=== PATIENT | female | born 1970 | race Caucasian/White ===

== ENCOUNTER 2017-09-09 11:11 | Inpatient (IN) | payer SELFPAY, OTHER ==
[~2017-09-09 11:11] MED LIST: ISOVUE-370 76%-LOCM 1 ML ONE; Iopamidol 370 76% 50 ML VIAL FS ONE
--- NOTE | 2017-09-09 11:36 | RAD ---
PORTABLE AP CHEST X-RAY: 09/09/2017 HISTORY: Dyspnea. COMPARISON: 11/17/2016 FINDINGS: There has been interval development of a small right pleural effusion. The left lung is clear. The cardiac silhouette is magnified by projection. The pulmonary vasculature is within normal limits. D egenerative changes are seen in the spine. IMPRESSION: Right pleural effusion. POS: [facility]
[2017-09-09 11:49] LABS: #Basophils 0.1 thou/uL (0.0-0.2); #Eosinphils 0.2 thou/uL (0.0-0.7); #Lymphocytes 1.1 thou/uL (1.20-3.40); #Monocytes 0.3 thou/uL (0.11-0.59); #Neutrophils 4.9 thou/uL (1.40-6.50); %Basophils 0.9 % (0.0-1.0); %Eosinophils 3.4 % (0.0-10.0); %Lymphocytes 16.6 % (21.0-51.0); %Monocytes 4.2 % (0.0-10.0); %Neutrophils 74.9 % (42.0-75.0); Hemoglobin 10.9 g/dL (12.0-16.0); Mean Corpuscular Hemoglobin 29.9 pg (27.0-31.0); Mean Platelet Volume 8.8 fL (7.4-10.4); Platelet Count 193 thou/uL (130-400); RBC Distribution Width 13.1 % (11.5-14.5); Red Blood Cell (RBC) Count 3.65 mill/uL (4.20-5.40); White Blood Cell (WBC) Count 6.6 thou/uL (4.8-10.8)
[2017-09-09 12:11] LABS: ALT (SGPT) 11 U/L (8-55); AST (SGOT) 19 U/L (5-34); Albumin 2.6 g/dL (3.5-5.0); Alkaline Phosphatase 79 U/L (40-150); Anion Gap 10 mmol/L (10-20); BUN (Urea Nitrogen) 11 mg/dL (7.0-18.7); Bilirubin, Total 0.4 mg/dL (0.2-1.2); CK (CPK) 193 U/L (29-168); Calc. Creatinine Clearance 0 mL/min (70-130); Calcium 8.6 mg/dL (7.8-10.44); Carbon Dioxide 26 mmol/L (22-29); Chloride 108 mmol/L (98-107); Estimated GFR-MDRD 56; Globulin 3.4 g/dL (2.4-3.5); Glucose 192 mg/dL (70-105); Sodium 141 mmol/L (136-145)
[2017-09-09 12:14] LABS: CKMB 4.3 ng/mL (0-6.6); Troponin I 0.045 ng/mL (< 0.028)
[2017-09-09 12:17] LABS: Potassium 2.7 mmol/L (3.5-5.1)
[2017-09-09] MEDS ORDERED: Nitroglycerin 2% Ointment 1 INCH/1 GM Packet ONE (12:20)
[2017-09-09] MEDS ORDERED: Furosemide 40 MG/4 ML VIAL ONE (13:08)
[2017-09-09] MEDS ORDERED: Potassium Chloride 20 MEQ TAB ONE (13:28)
[2017-09-09] MEDS ORDERED: Senokot 8.6 MG TAB PO PRN (14:07)
[2017-09-09] MEDS ORDERED: Guaifenesin DM 100-10/5 ML UDCUP PO PRN (14:07)
[2017-09-09] MEDS ORDERED: HYDROcodone/Acetaminophen 5/325 mg Tablet PO PRN (14:07)
[2017-09-09] MEDS ORDERED: Acetaminophen 325 MG TAB PO PRN (14:07)
[2017-09-09 14:15] LABS: Acetaminophen Less than 6.0 mcg/mL (10.0-30.0); Alcohol Less than 10 mg/dL (Less than 10); Salicylate Less than 8.0 mg/dL (15.0-30.0)
[2017-09-09] MEDS ORDERED: Dextrose 50% Abboject 50 ML SYRINGE SLOW IVP PRN (14:17)
[2017-09-09] MEDS ORDERED: Dextrose 5% in Water 1,000 ML IV PRN (14:17)
--- NOTE | 2017-09-09 14:34 | HP ---
REASON FOR ADMISSION: Likely progressive metastatic melanoma, new onset congestive heart failure. HISTORY OF PRESENTING ILLNESS: The patient gives history of swelling of her upper body from Saturday. She has had lower body swelling and edema from March. The lower body swelling started after a m ole was removed from her left medial thigh which came back positive for melanoma. She also had a lef t inguinal lymph node which was not touched upon or operated then. The left inguinal lymph node is a lmost increased in size x3 now. She has not followed up with Oncology or Dr. Adams since then. The patient has been working on getting insurance to follow up with him. The upper body swelling which started from Saturday has been progressive and she started having some chest pressure and was having sh ortness of breath. She could not lay down flat at home. All of this prompted her [facility] come [facility] for [facility] and complex care room here. PAST MEDICAL AND SURGICAL HISTORY: History of hypertension diagnosed in November of last year, but has no t been on any medications, likely malignant melanoma from November onwards and likely has progressed as a prominent left inguinal lymph node, prior history of Staph infection in left arm and her back with pr ior incision and drainage done. No prior cardiac workup. CURRENT MEDICATIONS: None. ALLERGIES: No known drug allergies. PERSONAL HISTORY: Does not abuse alcohol or drugs. She lives with her . No history of smoki ng. 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 FAMILY HISTORY: Father of lung cancer at the age of 50 and he was a smoker. He also had diabet es. Mother of stroke and she also had heart failure and at the age of 63 years. REVIEW OF SYSTEMS: The following complete review of systems was negative, unless otherwise mentioned in the HPI or below: Constitutional: Weight loss or gain, ability to conduct usual activities. Skin: Rash, itching. Eyes: Double vision, pain. ENT/Mouth: Nose bleeding, neck stiffness, pain, tenderness. Cardiovascular: Palpitations, dyspnea on exertion, orthopnea. Respiratory: Shortness of breath, wheezing, cough, hemoptysis, fever or night sweats. Gastrointestinal: Poor appetite, abdominal pain, heartburn, nausea, vomiting, constipation, or diarr hea. Genitourinary: Urgency, frequency, dysuria, nocturia. Musculoskeletal: Pain, swelling. Neurologic/Psychiatric: Anxiety, depression. Allergy/Immunologic: Skin rash, bleeding tendency. PHYSICAL EXAMINATION: GENERAL: The patient is a 47-year-old female who is currently in mild distress from orthopnea. VITAL SIGNS: Blood pressure on arrival was 210/118, currently 180/96, pulse 100 per minute, respirat ory rate 18 per minute, temperature 98.7 degrees Fahrenheit, saturating 95% on room air. NECK: Supple. There is mild elevation in JVD. EYES: Extraocular muscles intact. Pupils reacting to light. ORAL CAVITY: Mucous membranes are moist. No exudates or congestion. CARDIOVASCULAR SYSTEM: S1, S2 heard, S3 plus. RESPIRATORY SYSTEM: Air entry 1+ bilateral. Scattered rales plus in the infrascapular area. ABDOMEN: Soft. The patient appears to have abdominal wall edema, more so in the posterior aspect. No rigidity or guarding. There is massive left inguinal lymph node which measures roughly around 5 x 5 cm and it is hard for palpation. EXTREMITIES: There is 2+ peripheral edema, mostly nonpitting. No calf tenderness. VASCULAR SYSTEM: Peripheral pulses 1+ bilateral. No ischemic ulcerations or gangrene. CENTRAL NERVOUS SYSTEM: No gross focal deficits seen. Patient is alert, awake, and oriented well. PSYCHIATRIC SYSTEM: The patient's mood is euthymic. No hallucinations or delusions. IMAGING DATA AND LABORATORY DATA: EKG done shows normal sinus rhythm at 100 beats per minute. There are also signs of LVH. White count of 6.6, hemoglobin and hematocrit 11 and 32, platelet count 193, MCV is 88 with 74% neutrophils. Potassium is 2.7, serum bicarbonate 26, BUN 11, creatinine 1.0, glu cose 192. Liver enzymes are within normal limits. CK level is 193, troponin I 0.04. BNP is 1666, a lbumin is 2.6. Chest x-ray done shows mild cardiomegaly with mild right pleural effusion. CLINICAL IMPRESSION AND PLAN: The patient will be admitted to telemetry for new onset of congestive heart failure. Also, please note patient likely has progression of her malignant melanoma. She has a very hard left inguinal lymph node. We will obtain further imaging studies to see if she has sprea d anywhere else. Also, her albumin is very low. Patient likely has hypertension and has not been ta britt any medications for the same at least for last one year or so now. We will obtain echo with 2D Doppler for LV function with Lasix 40 mg IV q.[address] of the chest, abdomen, and pelvis to see for progression of her malignant melanoma. She will be on a small dose of Cozaar, Coreg and aspirin . We will consult Dr. Feng for Cardiology and Dr. Kirkpatrick who is landscape contractor for Oncology. It is uncle ar if patient ever followed up with Oncology after her diagnosis of malignant melanoma. She had biop sies done in November of last year. Her specimen was sent to [place] and was confirmed as poorly differentia cheo malignant melanoma. Her prognosis appears to be guarded at present until we get all the workup d one.
[2017-09-09 14:38] LABS: Hemoglobin A1c 7.3 % (4.0-6.0)
[2017-09-09 15:01] LABS: Anion Gap 10 mmol/L (10-20); BUN (Urea Nitrogen) 12 mg/dL (7.0-18.7); Calc. Creatinine Clearance 0 mL/min (70-130); Calcium 8.4 mg/dL (7.8-10.44); Carbon Dioxide 26 mmol/L (22-29); Chloride 109 mmol/L (98-107); Estimated GFR-MDRD 60; Glucose 172 mg/dL (70-105); Sodium 142 mmol/L (136-145); Uric Acid 5.3 mg/dL (2.6-6.0)
[2017-09-09] MEDS ORDERED: Metoprolol Tartrate 50 MG TAB ONE ×2 (15:03→15:06)
[2017-09-09] MEDS ORDERED: hydrALAZINE 20 MG/ML VIAL ONE (15:03)
[2017-09-09 15:08] LABS: Potassium 2.9 mmol/L (3.5-5.1)
[2017-09-09] MEDS ORDERED: hydrALAZINE 25 MG TAB ONE (15:10)
[2017-09-09] MEDS ORDERED: hydrALAZINE 25 MG TAB PO SCH (15:15)
[2017-09-09 15:24] LABS: Troponin I 0.076 ng/mL (< 0.028)
[2017-09-09] MEDS ORDERED: Losartan 25 MG TAB PO STA (15:56)
[2017-09-09 16:23] LABS: Amphetamine Not Detected (NotDetected); Benzodiazepine Screen Not Detected (NotDetected); Cocaine Metabolite Screen Not Detected (NotDetected); Medtox Reader # READER 1; Methamphetamine Not Detected (NotDetected); Opiate Screen Not Detected (NotDetected); Phencyclidine (PCP) Not Detected (NotDetected); THC/Cannabinoid Screen Not Detected (NotDetected); Tricyclic Screen Not Detected (NotDetected)
[2017-09-09 16:24] LABS: Barbiturates Screen Not Detected (NotDetected); Medtox Control Line Valid? VALID (VALID); Methadone Not Detected (NotDetected); Oxycodone Screen Not Detected (NotDetected)
--- NOTE | 2017-09-09 16:25 | CT ---
CT CHEST WITH CONTRAST CT ABDOMEN WITH CONTRAST CT PELVIS WITH CONTRAST: Date: 09/09/17 HISTORY: Progression of malignant melanoma, untreated. COMPARISON: CT chest, abdomen, and pelvis dated 01/09/17. FINDINGS: There is a large right and moderate sized left pleural effusion with some compressive atelectasis in the lung bases. No suspicious mass or pulmonary nodule. There is small volume pericardial fluid. There is extensive third spacing of fluid throughout the sup erficial and deep soft tissues. Small volume free fluid within the pelvis. No dilated loops of large or small bowel. Spleen is mildly enlarged, measuring up to 13.0 cm. There is mild abnormal thickening of the cecum and cecal apex. There is also abnormal thickening of t he terminal ileum. The left inguinal mass is incompletely evaluated, although is markedly enlarged to the comparison exa mination measuring at least 6.0 x 8.0 cm with a solid enhancing component. There are also some superf icial left-sided inguinal lymph nodes that are asymmetrically enlarged relative to the right. There are multiple small retroperitoneal lymph nodes. These are not definitively metastatic in nature . There is heterogeneous enhancement of the liver, which may be due to increased right heart pressure . Cholelithiasis is present. Main portal vein is patent. Aortoiliac contour is nonaneurysmal. Moderate degenerative disease of both hips, as well as of the pubic symphysis. No suspicious osteolyt ic or osteoblastic disease. IMPRESSION: 1. Interval size increase of left inguinal mass concerning for metastasis. 2. New large right and moderate left layering pleural effusions. 3. Splenomegaly. 4. Heterogeneous enhancement of the liver may reflect increased right heart pressure and reflux. 5. Extensive third spacing of fluid throughout the superficial and deep soft tissues. 6. Left side adrenal mass unchanged, likely adenoma. POS: [facility]
[2017-09-09] MEDS: Carvedilol 6.25 MG TAB PO SCH (18:00)
[2017-09-09] MEDS: Potassium Chloride 20 MEQ TAB PO SCH ×2 (18:07→20:55)
[2017-09-09 18:54] LABS: Troponin I 0.054 ng/mL (< 0.028)
[2017-09-09] MEDS: Docusate 100 MG CAP PO SCH (20:54)
[2017-09-09] MEDS: Nitroglycerin 2% Ointment 1 INCH/1 GM Packet TOP SCH (20:55)
[2017-09-09] MEDS: Famotidine 20 MG TAB PO SCH (20:56)
[2017-09-09] MEDS ORDERED: Carvedilol 3.125 MG TAB PO SCH (21:00)
[2017-09-10] MEDS: Potassium Chloride 20 MEQ TAB PO SCH ×3 (02:53→15:53)
[2017-09-10] MEDS: Ondansetron HCl/PF 4 MG/2 ML Vial IVP PRN (04:05)
[2017-09-10] MEDS: Nitroglycerin 2% Ointment 1 INCH/1 GM Packet TOP SCH ×3 (05:11→21:05)
[2017-09-10] MEDS: Furosemide 40 MG/4 ML VIAL SLOW IVP SCH ×2 (05:11→15:54)
[2017-09-10 05:47] LABS: #Basophils 0.1 thou/uL (0.0-0.2); #Eosinphils 0.1 thou/uL (0.0-0.7); #Lymphocytes 1.1 thou/uL (1.20-3.40); #Monocytes 0.3 thou/uL (0.11-0.59); #Neutrophils 4.5 thou/uL (1.40-6.50); %Eosinophils 1.6 % (0.0-10.0); %Lymphocytes 18.6 % (21.0-51.0); %Monocytes 4.3 % (0.0-10.0); %Neutrophils 74.5 % (42.0-75.0); Hemoglobin 8.9 g/dL (12.0-16.0); Mean Corpuscular HGB CONC 32.9 g/dL (32.0-36.0); Mean Corpuscular Hemoglobin 29.2 pg (27.0-31.0); Mean Corpuscular Volume 88.8 fl (81.0-99.0); Mean Platelet Volume 8.7 fL (7.4-10.4); Platelet Count 175 thou/uL (130-400); RBC Distribution Width 13.3 % (11.5-14.5); Red Blood Cell (RBC) Count 3.04 mill/uL (4.20-5.40); White Blood Cell (WBC) Count 6.1 thou/uL (4.8-10.8)
[2017-09-10 05:55] LABS: ALT (SGPT) 9 U/L (8-55); AST (SGOT) 15 U/L (5-34); Albumin 2.1 g/dL (3.5-5.0); Alkaline Phosphatase 61 U/L (40-150); Anion Gap 7 mmol/L (10-20); BUN (Urea Nitrogen) 15 mg/dL (7.0-18.7); Bilirubin, Total 0.3 mg/dL (0.2-1.2); Calc. Creatinine Clearance 82 mL/min (70-130); Calcium 8.1 mg/dL (7.8-10.44); Carbon Dioxide 29 mmol/L (22-29); Chloride 107 mmol/L (98-107); Estimated GFR-MDRD 58; Globulin 2.7 g/dL (2.4-3.5); Glucose 183 mg/dL (70-105); Potassium 3.4 mmol/L (3.5-5.1); Protein, Total 4.8 g/dL (6.0-8.3); Sodium 140 mmol/L (136-145)
[2017-09-10] MEDS: Docusate 100 MG CAP PO SCH ×2 (08:37→21:05)
[2017-09-10] MEDS: Carvedilol 6.25 MG TAB PO SCH ×2 (08:37→16:04)
[2017-09-10] MEDS: Enoxaparin Sodium 40 MG/0.4 ML SYRINGE SC SCH (08:38)
[2017-09-10] MEDS: Losartan 25 MG TAB PO SCH (08:38)
[2017-09-10] MEDS: Famotidine 20 MG TAB PO SCH ×2 (08:38→21:05)
[2017-09-10] MEDS ORDERED: Losartan 25 MG TAB PO SCH (09:00)
[2017-09-10] MEDS ORDERED: Lisinopril 2.5 MG TAB PO SCH (09:00)
--- NOTE | 2017-09-10 11:15 | PDOC.PN ---
- Subjective Encounter Start Date: 09/10/17 Encounter Start Time: 08:00 Subjective: breathing better this am -: no chest pain or palp -: is amb in room - Objective Resuscitation Status: Resuscitation Status FULL:Full Resuscitation MAR Reviewed: Yes Vital Signs & Weight: Vital Signs (12 hours) Temp Pulse Resp BP Pulse Ox 09/10/17 08:36 98.6 F 92 18 186/85 H 92 L 09/10/17 04:00 98.2 F 88 16 94 L 09/10/17 00:00 98.3 F 88 18 177/84 H 94 L Weight Weight 169 lb 4.8 oz I&O: 09/09/17 09/10/17 09/11/17 06:59 06:59 06:59 Output Total 200 Balance -200 Result Diagrams: 09/10/17 05:18 09/10/17 05:18 Additional Labs: Accuchecks 09/10/17 09/09/17 05:46 20:21 POC Glucose 191 H 171 H Phys Exam - Physical Examination HEENT: PERRLA, moist MMs Neck: no JVD, supple Respiratory: no wheezing, no rales Cardiovascular: RRR, no significant murmur Gastrointestinal: soft, non-tender, positive bowel sounds Musculoskeletal: pulses present, edema present Neurological: non-focal, moves all 4 limbs Psychiatric: A&O x 3 Dx/Plan (1) Acute exacerbation of CHF (congestive heart failure) Code(s): I50.9 - HEART FAILURE, UNSPECIFIED Status: Acute Comment: await echo results (2) Malignant melanoma Code(s): C43.9 - MALIGNANT MELANOMA OF SKIN, UNSPECIFIED Status: Chronic Comment: likely with progression, still has large left inguinal node, intra-abd nodes, ?left adrenal mass (3) HTN (hypertension) Code(s): I10 - ESSENTIAL (PRIMARY) HYPERTENSION Status: Chronic Qualifiers: Hypertension type: essential hypertension Qualified Code(s): I10 - Essential (primary) hypertension (4) Chronic anemia Code(s): D64.9 - ANEMIA, UNSPECIFIED Status: Chronic (5) DM type 2 (diabetes mellitus, type 2) Status: Chronic Qualifiers: Diabetes mellitus complication status: with unspecified complications Diabetes mellitus oysterman insulin use: without nursing home use Qualified Code( s): E11.8 - Type 2 diabetes mellitus with unspecified complications (6) Hypoalbuminemia Code(s): E88.09 - OTH DISORDERS OF PLASMA-PROTEIN METABOLISM, NEC Status: Acute (7) Demand ischemia of myocardium Code(s): I24.8 - OTHER FORMS OF ACUTE ISCHEMIC HEART DISEASE Status: Acute - Plan await echo results -: continue iv diuresis, htn is uncontrolled due to noncompliance with meds -: on coreg, cozaar and nitropaste -: oral iron, very low albumin of 2.1 likely to underlying malignancy -: hemeon consultation for options, CM for help with procuring ins/financial * . her prognosis appears to be guarded, await [facility] opinion Review of Systems - Medications/Allergies Allergies/Adverse Reactions: Allergies Allergy/AdvReac Type Severity Reaction Status Date / Time No Known Drug Allergies Allergy Verified 11/27/16 18:09 Medications: Current Medications Acetaminophen (Tylenol) 650 mg PO Q4H PRN PRN Reason: Headache/Fever or Pain Hydrocodone Bitart/Acetaminophen ([place] 5/325) 1 tab PO Q4H PRN PRN Reason: Moderate Pain (4-6) Last Admin: 09/09/17 21:02 Dose: 1 tab Aspirin (Aspirin Chewable) 81 mg PO DAILY [facility] Last Admin: 09/10/17 08:37 Dose: 81 mg Carvedilol (Coreg) 12.5 mg PO BID[facility] Last Admin: 09/10/17 08:37 Dose: 12.5 mg Dextrose/Water (Dextrose 50%) 25 gm SLOW IVP PRN PRN PRN Reason: Hypoglycemia Docusate Sodium (Colace) 100 mg PO BID [facility] Last Admin: 09/10/17 08:37 Dose: 100 mg Enoxaparin Sodium (Lovenox) 40 mg SC 0900 [facility] Last Admin: 09/10/17 08:38 Dose: 40 mg Famotidine (Pepcid) 20 mg PO BID [facility] Last Admin: 09/10/17 08:38 Dose: 20 mg Furosemide (Lasix) 40 mg SLOW IVP 0600,1400 [facility] Last Admin: 09/10/17 05:11 Dose: 40 mg Glucagon (Glucagon) 1 mg IM PRN PRN PRN Reason: Hypoglycemia Guaifenesin/Dextromethorphan (Robitussin Dm) 15 ml PO Q4H PRN PRN Reason: Cough Dextrose/Water (D5w) 1,000 mls @ 0 mls/hr IV .Q0M PRN; As Directed PRN Reason: Hypoglycemia Insulin Human Lispro (Humalog) 0 units SC .MODERATE SLIDING SC PRN PRN Reason: Moderate Correctional Scale Insulin Human Lispro (Humalog) 0 units SC .BEDTIME SLIDING SC PRN PRN Reason: Bedtime Correctional Scale Losartan Potassium (Cozaar) 50 mg PO DAILY [facility] Last Admin: 09/10/17 08:38 Dose: 50 mg Morphine Sulfate (Morphine) 2 mg SLOW IVP Q4H PRN PRN Reason: Chest Pain/BP Elevations Nitroglycerin (Nitro-Bid 2% Ointment) 0.5 inch TOP Q8HR [facility] Last Admin: 09/10/17 05:11 Dose: 0.5 inch Ondansetron HCl (Zofran) 4 mg IVP Q6H PRN PRN Reason: Nausea/Vomiting Last Admin: 09/10/17 04:05 Dose: 4 mg Potassium Chloride (K-Dur) 40 meq PO Q6H [facility] Stop: 09/10/17 14:46 Last Admin: 09/10/17 08:37 Dose: 40 meq Senna (Senokot) 2 tab PO HSPRN PRN PRN Reason: Constipation
[2017-09-10] MEDS: HumaLOG 300 UNITS/3 ML VIAL SC PRN ×2 (13:48→21:06)
--- NOTE | 2017-09-10 14:26 | CON ---
DATE OF CONSULTATION: 09/10/2017 HISTORY OF PRESENT ILLNESS: The patient is an unfortunate 47-year-old woman who presents with increasing upper and lower extremity swelling. This woman was diagnosed with melanoma last year. She unfortunately has not been undergoing treatment. She has chronic lower extremity swelling. She recently noticed having increasing upper extremity swelling. The patient also reported feeling discomfort whenever she is lying down. The patient states that she had a fullness sensation. PAST MEDICAL HISTORY: Melanoma. MEDICATIONS: None. PAST SURGICAL HISTORY: Inguinal lymph node removal. She has had drainage for Staph infection. SOCIAL HISTORY: Former smoker. FAMILY HISTORY: There is a family history of CVA and congestive heart failure. PHYSICAL EXAMINATION: GENERAL: This is an ill-appearing woman with a blood pressure of 186/85. NECK: Supple. No jugular venous distention. LUNGS: Decreased breath sounds in both bases. HEART: Regular rate and rhythm, normal S1, S2, no murmurs. ABDOMEN: Distended. EXTREMITIES: Showed severe bilateral edema. SKIN: Warm and dry. NEUROLOGIC: Nonfocal. VASCULAR: Radial pulses 2+. LABORATORY DATA: White blood cell count 6.1, hemoglobin 8.9, hematocrit 26.9, platelets 175. Sodium 140, potassium 3.4, chloride 107, bicarbonate 29, BUN 15 , creatinine 1.0, glucose 183. Troponin was 0.054. BNP was 1666. EKG revealed normal sinus rhythm, nonspecific T-wave abnormality. Chest x-ray revealed right-sided pleural effusion. Echocardiogram revealed normal left ventricular ejection fraction 55%-60%, left ventricular hypertrophy and diastolic dysfunction. IMPRESSION: 1. Anasarca. 2. History of melanoma, possibly metastatic. 3. Diastolic dysfunction. 4. Pleural effusion. 5. Hypertension. 6. Diabetes mellitus. This unfortunate woman has metastatic melanoma. She is being diuresed. From a cardiac standpoint, she has diastolic dysfunction with normal left ventricular systolic function. We will await oncology evaluation. The patient may need to undergo a thoracentesis to see if she has malignant effusion. We will follow this patient with you through her hospitalization. LINNEA
--- NOTE | 2017-09-10 22:55 | CON ---
DATE OF CONSULTATION: 09/10/2017 REASON FOR CONSULTATION: History of untreated malignancy. HISTORY OF PRESENT ILLNESS: Ms. Smith is a 47-year-old female who was evaluated by Dr. Chauhan in for a cutaneous malignancy. She noted a several weeks to month history of progressively enlarg ing mass near the medial aspect of her left knee. She was seen by Dr. Adams to perform an excisiona l biopsy on 11/28/2016. The tumor measured 4 cm of the greatest dimension with extremely high grade with Ki-67 of greater than 90%. It had neuroendocrine features, but immunohistochemical stains were negative except for vimentin, a second opinion pathological opinion was sought by [facility]. Addit ional stains were performed and several pathologists did review of the tumor. A ruby cell carcinom a was effectively excluded and their best assessment was a poorly differentiated melanoma. Her prese ntation was quite atypical for melanoma. She also had a left inguinal lymph node that was enlarged a t the time of diagnosis. She had a chest, abdomen, and pelvis CT with contrast, this left inguinal l ymph node measured 2.1 x 2.2 cm on scan. The patient did not follow up with Dr. Chauhan and has not had treatment for this high grade malignancy. She states she did try to get in to [facility], but they refused care based on her uninsured status. She presented on this hospitalization with lower e xtremity swelling. She was diagnosed with congestive heart failure and has been treated with diureti cs with improvement in her symptoms. She had a CT scan of her chest, abdomen and pelvis, which showe d a large right and moderate left pleural effusion. There was a small volume pericardial fluid. Her spleen was mildly enlarged at 13 cm. There was some abnormal thickening of the cecum and cecal apex . There was also abnormal thickening of the terminal ileum. The left inguinal mass now measured 6 x 8 cm. There were some superficial left-sided lymph nodes that were asymmetrically enlarged. There were multiple small retroperitoneal lymph nodes that were enlarged, but felt not metastatic in nature . We were asked to see the patient regarding these findings. The patient has been in her usual stat e of health until she began some significant swelling in March. She has not sought treatment for this until this hospitalization. PAST MEDICAL HISTORY: Soft tumor tissue of the left medial leg suspicious for melanoma diagnosed in 12/2016. PAST SURGICAL HISTORY: Excision and biopsy of this tumor. ALLERGIES: No known drug allergies. HOME MEDICATIONS: None. FAMILY HISTORY: Mother has diabetes. Father had lung cancer. Brother has colon cancer. Sister has cervical cancer. SOCIAL HISTORY: , has 2 children. A 2-pack-year history of smoking, no alcohol or illicit dr ug use. REVIEW OF SYSTEMS: Constitutional: Denies fever, chills, night sweats, recent weight loss or gain. Eyes: No blurred or double vision. ENT: No pain, hoarseness, sore throat, or dysphagia. Cardiova scular: No chest pain, palpitations, or syncope. Respiratory: Positive for shortness of breath, no dyspnea on exertion, orthopnea, or cough. Gastrointestinal: No nausea, vomiting, diarrhea, constip ation, or abdominal pain. Genitourinary: No dysuria or hematuria. Musculoskeletal: No joint or ba ck pain. Skin: No rash or pruritus. Hematologic: No bleeding, bruising, or clotting. Neurologic: Denies weakness, headache, numbness, tingling, or seizure activity. Psychiatric: No anxiety or de pression. PHYSICAL EXAMINATION: VITAL SIGNS: Temperature is 97.7, pulse is 85, respiratory rate 18, blood pressure is 169/87, and sh e is 97% on room air. GENERAL: Well-developed, well-nourished female who appears older than her stated age. HEENT: Normocephalic, atraumatic. Pupils equal and reactive to light. NECK: Supple. CARDIOVASCULAR: Regular rate and rhythm. LUNGS: Diminished throughout. ABDOMEN: Soft, nontender, bowel sounds are positive. There is no organomegaly. EXTREMITIES: She has 2+ edema in her lower extremities, 2+ edema in her left upper extremity. SKIN: She has no rash. HEMATOLOGIC: She has scattered purpura. LYMPH: She has a large firm lymph node in her left inguinal area. She has palpable nodes in her pub is area. NEUROLOGICAL: Nonfocal. PSYCHIATRIC: The patient is alert and oriented and appropriate. PERTINENT LABORATORY DATA AND X-RAYS: Current WBCs are 6.1, hemoglobin 8.9, hematocrit 26.9, platele t count is 175,000. She got 75% neutrophils, 18% lymphocytes. Sodium 140, potassium 3.4, chloride 1 07, CO2 is 29, BUN is 15, creatinine 1.01, calcium is 8.1, total bilirubin is 0.3, AST is 15, ALT is 9, alkaline phosphatase is 61, troponin is 0.054. BNP is 1669. Serum total protein 4.8, albumin 2.1 , globulin 2.7. Radiology per HPI. ASSESSMENT: 1. High grade malignancy, possibly melanoma, originally diagnosed in 12/2016. 2. Large left inguinal lymph node. 3. Congestive heart failure. DISCUSSION: The patient's diagnosis in December was difficult to obtain. The plan at that time was to b iopsy this left inguinal lymph node, but patient never followed up. The node is continued to grow an d is now tripled in size. She has not been treated with any chemotherapy. I spoke with Dr. Chauhan who recommends biopsy of this lymph node and further recommendations will be based on pathology. I w ill discuss with Dr. Adams who did her prior biopsy and hopefully this can be done in the next day o r so. Thank you for the consult.
--- NOTE | 2017-09-11 00:43 | CON ---
DATE OF CONSULTATION: 09/10/2017 HISTORY OF PRESENT ILLNESS: Patience Smith is a 47-year-old female well known to me. She presented to the emergency room on 11/28/2016 with a large mass in her medial left leg just medial to the leg dis vadim thigh area. She underwent excision of that mass and it was sent out for an outside review, [facility]. Final diagnosis was melanoma, also poorly differentiated malignant neoplasm consistent with poorly differentiated malignant melanoma. Lesion excised was 8 x 5 x 3.6 cm. This was difficult lavell sure, but patient has done well. I personally made calls to [facility] refer her to the melanoma se anette and she was to follow up there. She was to fill out paperwork. At the time, I saw her in 2017 , she had a large left groin mass. CAT scan of abdomen and pelvis at that time revealed asymptomatic cholelithiasis and a left inguinal mass. It was felt that this was inguinal metastasis and that she would need a lymph node dissection. Patient is readmitted to this hospitalization, not having follo wed up, and undergoing post-resection or treatment. She underwent a CAT scan of chest, abdomen, pelv is noted absence of metastatic disease. The mass in the left groin is 6 x 8 cm. There were a small lymphadenopathy, felt to be benign along the iliac chain. Patient has been noncompliant on antihyper tensive medications. She was having problems with diastolic dysfunction. An echocardiogram revealed 55%-60% ejection fraction, no significant valvular deformity, but diastolic dysfunction. Dr. Laya mahoney has seen her and believes that most of her problems were related to diastolic dysfunction. Patien t denies having chest pain or pressure. Currently, the patient feels better, now that her hypertensi on has been controlled and she is on her medications. CURRENT MEDICATIONS: Include Tylenol p.r.n., aspirin daily, Coreg 12.5 mg b.i.d., Lovenox, Lasix 40 mg twice a day, hydrocodone p.r.n., insulin sliding scale, Cozaar 50 mg p.o. daily, nitroglycerin p.r .n. PAST SURGICAL HISTORY: Resection of the large melanoma, left leg last year. Otherwise, noncontribut ory. PAST MEDICAL HISTORY: Diabetes mellitus, hypertension, anemia. Accu-Cheks 170-200, hemoglobin A1c 7.3. PHYSICAL EXAMINATION: GENERAL: Weight 169 pounds, 5 feet, 33 BMI. VITAL SIGNS: Temperature 97.7, 85, 169/87. HEAD, EYES, EARS, NOSE, AND THROAT: Unremarkable. LUNGS: Clear to auscultation. CARDIAC: Regular rate and rhythm without murmur or gallop. ABDOMEN: Soft, large left groin mass, size consistent with that described on CAT scan. Right groin lymphadenopathy. Surgical site left medial leg knee area without evidence of recurrence. EXTREMITIES: Unremarkable. LABORATORY DATA: Sodium 140, potassium 2.4. Hemoglobin 8.9. ASSESSMENT AND PLAN: 1. Large left groin mass consistent with metastasis, this was appreciated on past hospitalization la year. She was referred for lymphadenectomy because of financial issues, this did not occur. Harper d recommend left groin node dissection, I do not think that she needs a biopsy of this. Pathology nash d been sent out to the [facility] when I had to resect a large mass from the left leg. I do not thi nk a core biopsy will offer much. She needs excisional biopsy, lymphadenectomy left groin. We will discuss with Dr. Chauhan. 2. Anemia at age 47. She probably should be considered for endoscopic evaluation of her anemia. We will discuss with Oncology. 3. Diastolic dysfunction. Echocardiogram is unremarkable. We will discuss with Cardiology any othe r invasive cardiac testing prior to considering general anesthesia for lymphadenectomy. 4. Diabetes. 5. Obesity. 6. Hypertension.
[2017-09-11] MEDS: Furosemide 40 MG/4 ML VIAL SLOW IVP SCH ×2 (05:14→13:44)
[2017-09-11] MEDS: Nitroglycerin 2% Ointment 1 INCH/1 GM Packet TOP SCH (05:14)
[2017-09-11 05:39] LABS: ALT (SGPT) 9 U/L (8-55); AST (SGOT) 22 U/L (5-34); Albumin 2.2 g/dL (3.5-5.0); Alkaline Phosphatase 60 U/L (40-150); Anion Gap 11 mmol/L (10-20); BUN (Urea Nitrogen) 19 mg/dL (7.0-18.7); Bilirubin, Total 0.2 mg/dL (0.2-1.2); Calc. Creatinine Clearance 62 mL/min (70-130); Calcium 8.2 mg/dL (7.8-10.44); Carbon Dioxide 25 mmol/L (22-29); Chloride 108 mmol/L (98-107); Estimated GFR-MDRD 42; Globulin 2.8 g/dL (2.4-3.5); Glucose 245 mg/dL (70-105); Potassium 4.2 mmol/L (3.5-5.1); Sodium 140 mmol/L (136-145)
[2017-09-11] MEDS: Losartan 25 MG TAB PO SCH (09:27)
[2017-09-11] MEDS: Carvedilol 6.25 MG TAB PO SCH (09:27)
[2017-09-11] MEDS: Famotidine 20 MG TAB PO SCH ×2 (09:27→21:17)
[2017-09-11] MEDS: Docusate 100 MG CAP PO SCH ×2 (09:27→21:17)
[2017-09-11] MEDS: Enoxaparin Sodium 40 MG/0.4 ML SYRINGE SC SCH (09:28)
[2017-09-11] MEDS ORDERED: NIFEdipine XL 60 MG TAB PO STA (11:00)
--- NOTE | 2017-09-11 11:00 | PDOC.PN ---
- Subjective Encounter Start Date: 09/11/17 Encounter Start Time: 09:45 Subjective: has headache, no sob -: is sitting up, npo for lymph node resection today by -: no chest pain/palp - Objective Resuscitation Status: Resuscitation Status FULL:Full Resuscitation MAR Reviewed: Yes Vital Signs & Weight: Vital Signs (12 hours) Temp Pulse Resp BP BP Pulse Ox 09/11/17 09:39 98.3 F 85 17 95 09/11/17 09:27 196/95 H 09/11/17 04:23 98.8 F 84 18 171/80 H 93 L 09/11/17 00:00 98.3 F 83 20 177/79 H 94 L Weight Weight 168 lb 1.6 oz I&O: 09/10/17 09/11/17 09/12/17 06:59 06:59 06:59 Intake Total 520 Output Total 980 Balance -460 Result Diagrams: 09/10/17 05:18 09/11/17 05:06 Additional Labs: Accuchecks 09/11/17 09/10/17 09/10/17 05:39 20:33 16:57 POC Glucose 236 H 224 H 176 H 09/10/17 11:49 POC Glucose 201 H Phys Exam - Physical Examination HEENT: PERRLA, moist MMs Neck: no JVD, supple Respiratory: no wheezing, no rales Cardiovascular: RRR, no significant murmur Gastrointestinal: soft, non-tender, positive bowel sounds abd wall edema is receding Musculoskeletal: pulses present, edema present Neurological: non-focal, moves all 4 limbs Psychiatric: A&O x 3 Dx/Plan (1) Acute exacerbation of CHF (congestive heart failure) Code(s): I50.9 - HEART FAILURE, UNSPECIFIED Status: Acute Qualifiers: Heart failure type: diastolic Qualified Code(s): I50.33 - Acute on chronic diastolic (congestive) heart failure Comment: ef of 55% (2) Malignant melanoma Code(s): C43.9 - MALIGNANT MELANOMA OF SKIN, UNSPECIFIED Status: Chronic Comment: likely with progression, still has large left inguinal node, intra-abd nodes, ?left adrenal mass (3) HTN (hypertension) Code(s): I10 - ESSENTIAL (PRIMARY) HYPERTENSION Status: Chronic Qualifiers: Hypertension type: essential hypertension Qualified Code(s): I10 - Essential (primary) hypertension (4) Chronic anemia Code(s): D64.9 - ANEMIA, UNSPECIFIED Status: Chronic (5) DM type 2 (diabetes mellitus, type 2) Status: Chronic Qualifiers: Diabetes mellitus complication status: with unspecified complications Diabetes mellitus terminal computer operator insulin use: without correction use Qualified Code( s): E11.8 - Type 2 diabetes mellitus with unspecified complications (6) Hypoalbuminemia Code(s): E88.09 - OTH DISORDERS OF PLASMA-PROTEIN METABOLISM, NEC Status: Acute (7) Demand ischemia of myocardium Code(s): I24.8 - OTHER FORMS OF ACUTE ISCHEMIC HEART DISEASE Status: Resolved - Plan add procardia xl, small dose hydralazine and clonidine prn -: is on lasix iv, her coreg has been increase to 25mg bid -: for lymph node excision today -: tx to onc floor * . Review of Systems - Medications/Allergies Allergies/Adverse Reactions: Allergies Allergy/AdvReac Type Severity Reaction Status Date / Time No Known Drug Allergies Allergy Verified 11/27/16 18:09 Medications: Current Medications Acetaminophen (Tylenol) 650 mg PO Q4H PRN PRN Reason: Headache/Fever or Pain Hydrocodone Bitart/Acetaminophen (Bucklin 5/325) 1 tab PO Q4H PRN PRN Reason: Moderate Pain (4-6) Last Admin: 09/09/17 21:02 Dose: 1 tab Aspirin (Aspirin Chewable) 81 mg PO DAILY [facility] Last Admin: 09/11/17 09:27 Dose: 81 mg Atorvastatin Calcium (Lipitor) 40 mg PO HS [facility] Carvedilol (Coreg) 25 mg PO BID-[facility] Dextrose/Water (Dextrose 50%) 25 gm SLOW IVP PRN PRN PRN Reason: Hypoglycemia Docusate Sodium (Colace) 100 mg PO BID [facility] Last Admin: 09/11/17 09:27 Dose: 100 mg Enoxaparin Sodium (Lovenox) 40 mg SC 0900 [facility] Last Admin: 09/11/17 09:28 Dose: 40 mg Famotidine (Pepcid) 20 mg PO BID [facility] Last Admin: 09/11/17 09:27 Dose: 20 mg Furosemide (Lasix) 40 mg SLOW IVP 0600,1400 [facility] Last Admin: 09/11/17 05:14 Dose: 40 mg Glucagon (Glucagon) 1 mg IM PRN PRN PRN Reason: Hypoglycemia Guaifenesin/Dextromethorphan (Robitussin Dm) 15 ml PO Q4H PRN PRN Reason: Cough Dextrose/Water (D5w) 1,000 mls @ 0 mls/hr IV .Q0M PRN; As Directed PRN Reason: Hypoglycemia Insulin Human Lispro (Humalog) 0 units SC .MODERATE SLIDING SC PRN PRN Reason: Moderate Correctional Scale Last Admin: 09/10/17 13:48 Dose: 4 unit Insulin Human Lispro (Humalog) 0 units SC .BEDTIME SLIDING SC PRN PRN Reason: Bedtime Correctional Scale Last Admin: 09/10/17 21:06 Dose: 2 unit Losartan Potassium (Cozaar) 50 mg PO DAILY [facility] Last Admin: 09/11/17 09:27 Dose: 50 mg Morphine Sulfate (Morphine) 2 mg SLOW IVP Q4H PRN PRN Reason: Chest Pain/BP Elevations Ondansetron HCl (Zofran) 4 mg IVP Q6H PRN PRN Reason: Nausea/Vomiting Last Admin: 09/10/17 04:05 Dose: 4 mg Senna (Senokot) 2 tab PO HSPRN PRN PRN Reason: Constipation
[2017-09-11] MEDS ORDERED: cloNIDine 0.1 MG TAB PO PRN (11:01)
[2017-09-11] MEDS ORDERED: Ibuprofen 200 MG TAB PO PRN (11:02)
[2017-09-11] MEDS ORDERED: CEFAZOLIN/Water 2 GM/20 ML SYRINGE SLOW IVP SCH (11:15)
--- NOTE | 2017-09-11 12:52 | PRG ---
DATE OF SERVICE: 09/11/2017 Patience Smith is doing well today. I have discussed her care with Dr. Ezio Lazaro, who states that she is stable from a medical standpoint to proceed with a general anesthetic for a left node dissecti on and MediPort placement. I have discussed with Dr. Chaparro Chauhan and Janie Benjamin, COURTNEY, and all are agreeable to proceed with lymph node dissection. I have discussed this with Mrs. Smith. Plan is fo r excision of left groin mass and lymph node dissection with placement of a drain and placement of a MediPort. She understands the risks of infection, bleeding, reoperation, prolonged drainage, seroma, lymphedema, having to use a compression leg dressing possibly and consents and we will proceed today . Chronic anemia, workup per Oncology Hematology.
[2017-09-11] MEDS ORDERED: Bupivacaine HCl 0.5%/Epinephrine 1:200,000/PF 30 ml Vial ONE (14:39)
[2017-09-11] MEDS ORDERED: CEFAZOLIN/Water 2 GM/20 ML SYRINGE ONE (15:07)
[2017-09-11] MEDS ORDERED: Morphine 10 MG/ML VIAL ONE (15:15)
[2017-09-11] MEDS ORDERED: Lidocaine 1% PF 5 ML VIAL ONE (16:32)
[2017-09-11] MEDS ORDERED: ePHEDrine/0.9% NaCl/PF SYRINGE 50 mg/10 ml ONE (16:32)
[2017-09-11] MEDS ORDERED: Ondansetron HCl/PF 4 MG/2 ML Vial ONE ×2 (16:32→18:29)
[2017-09-11] MEDS ORDERED: PROPOFOL 200 MG/20 ML VIAL ONE (16:32)
[2017-09-11] MEDS ORDERED: Dexamethasone 20 MG/5 ML VIAL ONE (16:32)
--- NOTE | 2017-09-11 17:20 | RAD ---
FLUOROSCOPY INHERENT TO SURGERY 09/11/17 HISTORY: Hemodialysis catheter. COMPARISON: None. FINDINGS: There are no images submitted for interpretation. The fluoro time was 13 seconds. IMPRESSION: Fluoroscopy for surgical purposes. POS: JUAN MIGUEL
[2017-09-11] MEDS ORDERED: Promethazine HCl 25 MG/ML VIAL IM PRN (17:49)
[2017-09-11] MEDS ORDERED: Meperidine HCl/PF 25 MG/ML VIAL SLOW IVP PRN (17:49)
[2017-09-11] MEDS ORDERED: Ondansetron HCl/PF 4 MG/2 ML Vial IVP PRN (17:49)
[2017-09-11] MEDS ORDERED: Promethazine HCl 25 MG/ML VIAL SLOW IVP PRN (17:49)
--- NOTE | 2017-09-11 18:44 | RAD ---
CHEST ONE VIEW 09/11/17 HISTORY: Chest pain. COMPARISON: 09/09/17. FINDINGS: The cardiac silhouette is magnified by projection. Shallow inspiration accentuates pulmonary markings . Mediastinum is midline. Tip of a right subclavian Mediport now overlies the cavoatrial junction. No evidence of pneumothorax. Contrast material is apparent within the left colon. IMPRESSION: Right subclavian Mediport is in good radiographic position. POS: JEB
[2017-09-11] MEDS ORDERED: Acetaminophen 500 MG TAB PO PRN (19:19)
[2017-09-11] MEDS: Ondansetron HCl/PF 4 MG/2 ML Vial IVP PRN (19:48)
[2017-09-11] MEDS: hydrALAZINE 25 MG TAB PO SCH ×2 (21:07→21:16)
[2017-09-11] MEDS: Carvedilol 25 MG TAB PO SCH (21:16)
[2017-09-11] MEDS: Atorvastatin Calcium 40 MG TAB PO SCH (21:17)
[2017-09-11] MEDS: HumaLOG 300 UNITS/3 ML VIAL SC PRN (22:41)
--- NOTE | 2017-09-12 06:32 | OP ---
DATE OF PROCEDURE: 09/11/2017 PREOPERATIVE DIAGNOSES: History of melanoma left leg with enlarging left groin mass and lymphadenopa thy. POSTOPERATIVE DIAGNOSES: History of melanoma left leg with enlarging left groin mass and lymphadenop athy. PROCEDURES: Right subclavian vein low profile MediPort fluoroscopy used. Left groin superficial and deep ilioinguinal femoral node dissection, #19 Gold JENNIFER drain. [place] proximal node marked with a l avni silk suture. SURGEON: Dr. Niall Adams. ANESTHESIA: General. Local 0.25% Marcaine, 30 mL, mixed with 1 Xylocaine with epinephrine 20 mL, 10 mL mixture used chest area and another mixture aliquot total mixture used, left groin. FINDINGS: Large mass, left groin, probably 8 cm in diameter with smaller nodes of questionable signi ficance surrounding. PROCEDURE IN DETAIL: The patient was taken to the operating room under general anesthesia, chest, ne ck, and lower left abdomen, groin and thigh were prepared with ChloraPrep, draped in routine fashion. Local anesthetic was infiltrated in the skin and subcutaneous tissue at the operative site and troc ar catheter cannulated the right subclavian vein. J wire threaded. Trocar catheter removed. A skin site enlarged sharply and carried down through skin and subcutaneous tissue. Subcutaneous pocket wa s created with sharp and blunt dissection. Dilator and pull-away sheath placed over the J-wire into the superior vena cava. Dilator and J-wire removed. Catheter was placed through pull-away sheath. Pull-away sheath removed. Fluoroscopically, the catheter tip placed in optimal position in the super ior vena cava and catheter tailored to length and connected to the MediPort secured in the subcutaneo us pocket with 2 interrupted sutures of 3-0 Prolene. Subcutaneous tissue was approximated with 3-0 M onocryl, skin with subdermal 4-0 Monocryl and DermaGlue applied. MediPort accessed and aspirated blo od and flushed with heparin saline solution and left access for use in this hospitalization. Sterile dressings applied. Attention was then turned to the left groin which had been draped in routine fashion. Incision was m mecca over the large left groin mass longitudinally for the ilioinguinal femoral node dissection. Inci jemma carried through skin and subcutaneous tissue dissecting subcutaneous tissue free from the large 8 cm mass. The mass dissected free circumferentially. The left femoral artery and vein identified a nd kept free of harm and branches divided between 4-0, 3-0 silk ties and clips cleaning the doris tis anibal from the femoral triangle. Dissection started distally and worked cephalad. Fatty contents were cleaned from the femoral triangle apically near the inguinal ligament. [place] node was identified and was large, approximately 2.5 to 3 cm. It, however, was smooth and soft. It was dissected free, marked with a 3-0 silk suture as the apical [place]'s node. Hemostasis gained with cautery, clips an d 3-0 and 2-0 silk ties. Saphenous vein had been double clipped distally and proximally a stick tie of 3-0 silk used to control it. Wound irrigated. Irrigant evacuated. Good hemostasis noted. A #19 Gold JENNIFER drain brought out through a separate inferior stab incision and secured with 3-0 nylon sutur e and tailored to length, placed in the groin. The groin anesthetized with local anesthetic circumfe rentially. Good hemostasis noted. Subcutaneous tissue was approximated with continuous suture of lo cking 3-0 Monocryl, skin with continuous subcutaneous suture of 4-0 Monocryl and DermaGlue and steril e dressings applied.
[2017-09-12] MEDS: Furosemide 40 MG/4 ML VIAL SLOW IVP SCH ×2 (06:40→14:05)
[2017-09-12] MEDS: traMADol HCl 50 MG TAB PO PRN ×3 (06:56→18:48)
[2017-09-12] MEDS: HumaLOG 300 UNITS/3 ML VIAL SC PRN ×2 (06:59→17:52)
[2017-09-12 07:34] LABS: #Lymphocytes 0.6 thou/uL (1.20-3.40); #Monocytes 0.2 thou/uL (0.11-0.59); #Neutrophils 5.3 thou/uL (1.40-6.50); %Basophils 0.2 % (0.0-1.0); %Eosinophils 0.1 % (0.0-10.0); %Lymphocytes 9.6 % (21.0-51.0); %Monocytes 2.6 % (0.0-10.0); %Neutrophils 87.5 % (42.0-75.0); Hemoglobin 9.3 g/dL (12.0-16.0); Mean Corpuscular HGB CONC 33.1 g/dL (32.0-36.0); Mean Corpuscular Hemoglobin 29.6 pg (27.0-31.0); Mean Corpuscular Volume 89.5 fl (81.0-99.0); Mean Platelet Volume 9.6 fL (7.4-10.4); Platelet Count 191 thou/uL (130-400); RBC Distribution Width 12.9 % (11.5-14.5); Red Blood Cell (RBC) Count 3.15 mill/uL (4.20-5.40); White Blood Cell (WBC) Count 6.1 thou/uL (4.8-10.8)
[2017-09-12 07:55] LABS: ALT (SGPT) 10 U/L (8-55); AST (SGOT) 14 U/L (5-34); Albumin 2.4 g/dL (3.5-5.0); Alkaline Phosphatase 64 U/L (40-150); Anion Gap 13 mmol/L (10-20); BUN (Urea Nitrogen) 25 mg/dL (7.0-18.7); Bilirubin, Total 0.2 mg/dL (0.2-1.2); Calc. Creatinine Clearance 61 mL/min (70-130); Calcium 8.6 mg/dL (7.8-10.44); Carbon Dioxide 29 mmol/L (22-29); Chloride 102 mmol/L (98-107); Estimated GFR-MDRD 41; Globulin 2.9 g/dL (2.4-3.5); Glucose 211 mg/dL (70-105); Potassium 3.9 mmol/L (3.5-5.1); Protein, Total 5.3 g/dL (6.0-8.3); Sodium 140 mmol/L (136-145)
[2017-09-12] MEDS ORDERED: NIFEdipine XL 60 MG TAB PO SCH (09:00)
[2017-09-12] MEDS: Polyethylene Glycol 3350 17 GM Packet PO SCH (09:39)
[2017-09-12] MEDS: Multivit, Therapeutic 1 TAB PO SCH (09:40)
[2017-09-12] MEDS: hydrALAZINE 25 MG TAB PO SCH ×3 (09:41→23:12)
[2017-09-12] MEDS: Famotidine 20 MG TAB PO SCH ×2 (09:43→23:01)
[2017-09-12] MEDS: Docusate 100 MG CAP PO SCH ×2 (09:44→23:01)
[2017-09-12] MEDS: Losartan 25 MG TAB PO SCH (09:44)
[2017-09-12] MEDS: Carvedilol 25 MG TAB PO SCH ×2 (09:45→17:53)
[2017-09-12] MEDS: Zinc Sulfate 220 MG CAP PO SCH (09:46)
[2017-09-12] MEDS: Enoxaparin Sodium 40 MG/0.4 ML SYRINGE SC SCH (10:03)
[2017-09-12 10:57] VITALS: BMI 33.5
--- NOTE | 2017-09-12 13:37 | PDOC.PN ---
- Subjective Encounter Start Date: 09/12/17 Encounter Start Time: 13:25 Subjective: no sob, pain in left thigh area on amb due to drain and surgery -: is eating better - Objective Resuscitation Status: Resuscitation Status FULL:Full Resuscitation MAR Reviewed: Yes Vital Signs & Weight: Vital Signs (12 hours) Temp Pulse Resp BP BP BP Pulse Ox 09/12/17 11:36 97.8 F 75 14 113/58 L 93 L 09/12/17 09:41 87 137/67 09/12/17 08:30 98.2 F 87 20 137/65 95 09/12/17 03:00 97.7 F 84 20 162/74 H 95 Weight Admit Weight 169 lb 6.4 oz Weight 172 lb I&O: 09/11/17 09/12/17 09/13/17 06:59 06:59 06:59 Intake Total 520 280 360 Output Total 980 1650 250 Balance -460 -1370 110 Result Diagrams: 09/12/17 07:24 09/12/17 07:24 Additional Labs: Accuchecks 09/12/17 09/12/17 09/11/17 11:14 06:40 22:22 POC Glucose 183 H 218 H 285 H Phys Exam - Physical Examination HEENT: PERRLA, moist MMs Neck: no JVD, supple Respiratory: no wheezing, no rales Cardiovascular: RRR, no significant murmur Gastrointestinal: soft, non-tender, positive bowel sounds Musculoskeletal: pulses present, edema present left thigh has drain+ Neurological: non-focal, moves all 4 limbs Psychiatric: A&O x 3 Dx/Plan (1) Acute exacerbation of CHF (congestive heart failure) Code(s): I50.9 - HEART FAILURE, UNSPECIFIED Status: Acute Qualifiers: Heart failure type: diastolic Qualified Code(s): I50.33 - Acute on chronic diastolic (congestive) heart failure Comment: ef of 55% (2) Malignant melanoma Code(s): C43.9 - MALIGNANT MELANOMA OF SKIN, UNSPECIFIED Status: Chronic Comment: likely with progression, still has large left inguinal node, intra-abd nodes, ?left adrenal mass (3) HTN (hypertension) Code(s): I10 - ESSENTIAL (PRIMARY) HYPERTENSION Status: Chronic Qualifiers: Hypertension type: essential hypertension Qualified Code(s): I10 - Essential (primary) hypertension (4) Chronic anemia Code(s): D64.9 - ANEMIA, UNSPECIFIED Status: Chronic (5) DM type 2 (diabetes mellitus, type 2) Status: Chronic Qualifiers: Diabetes mellitus complication status: with unspecified complications Diabetes mellitus shelter insulin use: without shelter use Qualified Code( s): E11.8 - Type 2 diabetes mellitus with unspecified complications (6) Hypoalbuminemia Code(s): E88.09 - OTH DISORDERS OF PLASMA-PROTEIN METABOLISM, NEC Status: Acute (7) Demand ischemia of myocardium Code(s): I24.8 - OTHER FORMS OF ACUTE ISCHEMIC HEART DISEASE Status: Resolved - Plan had her lymph node excised from left femoral area -: is on lasix iv, diuresing well -: htn is better controlled now -: will need assistance with meds on discharge -: dc plan in am, to f/u with onc as adv * . Review of Systems - Medications/Allergies Allergies/Adverse Reactions: Allergies Allergy/AdvReac Type Severity Reaction Status Date / Time No Known Drug Allergies Allergy Verified 11/27/16 18:09 Medications: Current Medications Acetaminophen (Tylenol) 1,000 mg PO Q6H PRN PRN Reason: Moderate to Severe Pain (6-10) Aspirin (Aspirin Chewable) 81 mg PO DAILY [facility] Last Admin: 09/12/17 09:45 Dose: 81 mg Atorvastatin Calcium (Lipitor) 40 mg PO HS [facility] Last Admin: 09/11/17 21:17 Dose: Not Given Carvedilol (Coreg) 25 mg PO BID-[facility] Last Admin: 09/12/17 09:45 Dose: 25 mg Cefazolin Sodium (Ancef) 2 gm SLOW IVP WILLCALL [facility] Clonidine (Catapres) 0.1 mg PO Q4H PRN PRN Reason: for sbp>180 Dextrose/Water (Dextrose 50%) 25 gm SLOW IVP PRN PRN PRN Reason: Hypoglycemia Docusate Sodium (Colace) 100 mg PO BID [facility] Last Admin: 09/12/17 09:44 Dose: 100 mg Enoxaparin Sodium (Lovenox) 40 mg SC 0900 [facility] Last Admin: 09/12/17 10:03 Dose: 40 mg Famotidine (Pepcid) 20 mg PO BID [facility] Last Admin: 09/12/17 09:43 Dose: 20 mg Furosemide (Lasix) 40 mg SLOW IVP 0600,1400 [facility] Last Admin: 09/12/17 06:40 Dose: 40 mg Glucagon (Glucagon) 1 mg IM PRN PRN PRN Reason: Hypoglycemia Guaifenesin/Dextromethorphan (Robitussin Dm) 15 ml PO Q4H PRN PRN Reason: Cough Heparin Sodium (Porcine) (Heparin Lock Flush 100 Units/Ml) 500 units IV PRN PRN PRN Reason: Heparin Flush Heparin Sodium (Porcine) (Heparin Lock Flush 100 Units/Ml) 500 units IV BID [facility] Last Admin: 09/12/17 10:00 Dose: Not Given Hydralazine HCl (Apresoline) 25 mg PO TID [facility] Last Admin: 09/12/17 09:41 Dose: 25 mg Dextrose/Water (D5w) 1,000 mls @ 0 mls/hr IV .Q0M PRN; As Directed PRN Reason: Hypoglycemia Ibuprofen (Motrin) 400 mg PO Q6H PRN PRN Reason: Pain Insulin Human Lispro (Humalog) 0 units SC .MODERATE SLIDING SC PRN PRN Reason: Moderate Correctional Scale Last Admin: 09/12/17 06:59 Dose: 4 unit Insulin Human Lispro (Humalog) 0 units SC .BEDTIME SLIDING SC PRN PRN Reason: Bedtime Correctional Scale Last Admin: 09/11/17 22:41 Dose: 3 unit Losartan Potassium (Cozaar) 50 mg PO DAILY [facility] Last Admin: 09/12/17 09:44 Dose: 50 mg Multivitamins (Theragran) 1 tab PO DAILY [facility] Last Admin: 09/12/17 09:40 Dose: 1 tab Nifedipine (Procardia Xl) 60 mg PO DAILY [facility] Last Admin: 09/12/17 09:41 Dose: 60 mg Ondansetron HCl (Zofran) 4 mg IVP Q6H PRN PRN Reason: Nausea/Vomiting Last Admin: 09/11/17 19:48 Dose: 4 mg Polyethylene Glycol (Miralax) 17 gm PO DAILY [facility] Last Admin: 09/12/17 09:39 Dose: 17 gm Senna (Senokot) 2 tab PO HSPRN PRN PRN Reason: Constipation Sodium Chloride (Flush - Normal Saline) 10 ml IVF Q12HR [facility] Last Admin: 09/12/17 09:46 Dose: 10 ml Sodium Chloride (Flush - Normal Saline) 10 ml IVF PRN PRN PRN Reason: Saline Flush Last Admin: 09/12/17 06:41 Dose: 10 ml Tramadol HCl (Ultram) 50 mg PO Q6H PRN PRN Reason: Mild-Moderate Pain (1-5) Last Admin: 09/12/17 06:56 Dose: 50 mg Tramadol HCl (Ultram) 100 mg PO Q4H PRN PRN Reason: Moderate to Severe Pain (6-10) Zinc Sulfate (Zinc Sulfate) 220 mg PO DAILY [facility] Last Admin: 09/12/17 09:46 Dose: 220 mg
--- NOTE | 2017-09-12 18:23 | PRG ---
DATE OF SERVICE: 09/12/2017 SUBJECTIVE: Ms. Patience Smith is doing well after excision of large left groin mass and left groin butts perficial and deep lymphadenectomy with removal of [place] node. Pathology pending. Patient is havi ng very little pain, mobility is good. OBJECTIVE: VITAL SIGNS: 97.7 degrees, 77, 121/60. JENNIFER drainage is serosanguineous left groin, 270 mL in 24-hour output. LUNGS: Clear to auscultation. CARDIAC: Regular rate and rhythm without murmur or gallop. ABDOMEN: Soft. EXTREMITIES: Mild pitting edema in both ankles. LABORATORY DATA: White count 6, hemoglobin 9.3. Basic metabolic profile unremarkable. BUN 25, crea tinine 1.37, slightly elevated. Accu-Cheks 180-218. ASSESSMENT AND PLAN: 1. Melanoma, left leg, status post resection last year with delay in care due to financial status an d lack of compliance. One day status post lymphadenectomy and groin mass dissection. Pathology pend ing. Await results. She had a MediPort placed and this has been used. At this point, patient is re laura to be discharged home anytime. She can be sent home with Ultram, Tylenol for pain. I have encou raged her to elevate her leg several times during the day. I have asked her to avoid prolonged depen dency with her preexisting edema and recent lymphadenectomy left groin, she is at risk for lymphedema . We would recommend Stan wrap compression, wrapping beginning at the feet extending to above the kne e. JOSE LUIS hose will be helpful. Sequential compression hoses are expensive, but she would benefit from them, but due to the expense, would not acquire at this time until she is mobilized some of her fidencio a from her congestive heart failure, controlled. Congestive heart failure secondary to diastolic dys function. 2. Mild renal insufficiency. The patient could be discharged home at anytime and follow up in my of derrek as an outpatient in the next week. She should be educated on stripping her drain and drain care and recording output, so she can report. I expect this drain to be present for 2-3 weeks. We will see her in my office next week. She should leave the dressing over the drain.
[2017-09-12] MEDS: Atorvastatin Calcium 40 MG TAB PO SCH (23:01)
[2017-09-13] MEDS: Furosemide 40 MG/4 ML VIAL SLOW IVP SCH (06:22)
[2017-09-13] MEDS: traMADol HCl 50 MG TAB PO PRN (08:07)
[2017-09-13] MEDS: Losartan 25 MG TAB PO SCH (08:08)
[2017-09-13] MEDS: Polyethylene Glycol 3350 17 GM Packet PO SCH (08:09)
[2017-09-13] MEDS: Multivit, Therapeutic 1 TAB PO SCH (08:09)
[2017-09-13] MEDS: Furosemide 40 MG TAB PO SCH ×2 (08:09→13:37)
[2017-09-13] MEDS: Zinc Sulfate 220 MG CAP PO SCH (08:09)
[2017-09-13] MEDS: Carvedilol 25 MG TAB PO SCH ×2 (08:09→16:28)
[2017-09-13] MEDS: Enoxaparin Sodium 40 MG/0.4 ML SYRINGE SC SCH (08:09)
[2017-09-13] MEDS: Docusate 100 MG CAP PO SCH (08:09)
[2017-09-13] MEDS: Famotidine 20 MG TAB PO SCH (08:09)
[2017-09-13 12:20] VITALS: TEMP 97.9
--- NOTE | 2017-09-13 13:24 | PDOC.PN ---
- Subjective Encounter Start Date: 09/13/17 Encounter Start Time: 10:00 Subjective: feels better, is ambulating in room -: at bedside - Objective Resuscitation Status: Resuscitation Status FULL:Full Resuscitation MAR Reviewed: Yes Vital Signs & Weight: Vital Signs (12 hours) Temp Pulse Resp BP Pulse Ox 09/13/17 11:20 97.9 F 73 16 125/63 96 09/13/17 08:15 97.6 F 76 18 94 L 09/13/17 07:30 97.6 F 76 18 126/64 94 L Weight Admit Weight 169 lb 6.4 oz Weight 172 lb I&O: 09/12/17 09/13/17 09/14/17 06:59 06:59 06:59 Intake Total 280 1060 400 Output Total 1650 1080 Balance -1370 -20 400 Result Diagrams: 09/12/17 07:24 09/12/17 07:24 Additional Labs: Accuchecks 09/13/17 09/13/17 09/12/17 11:39 05:20 20:07 POC Glucose 129 H 122 H 167 H 09/12/17 16:09 POC Glucose 163 H Phys Exam - Physical Examination HEENT: PERRLA, moist MMs Neck: no JVD, supple Respiratory: no wheezing, no rales Cardiovascular: RRR, no significant murmur Gastrointestinal: soft, non-tender, positive bowel sounds Musculoskeletal: pulses present, edema present drain + left thigh Neurological: non-focal, moves all 4 limbs Psychiatric: A&O x 3 Dx/Plan (1) Acute exacerbation of CHF (congestive heart failure) Code(s): I50.9 - HEART FAILURE, UNSPECIFIED Status: Acute Qualifiers: Heart failure type: diastolic Qualified Code(s): I50.33 - Acute on chronic diastolic (congestive) heart failure Comment: ef of 55% (2) Malignant melanoma Code(s): C43.9 - MALIGNANT MELANOMA OF SKIN, UNSPECIFIED Status: Chronic (3) HTN (hypertension) Code(s): I10 - ESSENTIAL (PRIMARY) HYPERTENSION Status: Chronic Qualifiers: Hypertension type: essential hypertension Qualified Code(s): I10 - Essential (primary) hypertension (4) Chronic anemia Code(s): D64.9 - ANEMIA, UNSPECIFIED Status: Chronic (5) DM type 2 (diabetes mellitus, type 2) Status: Chronic Qualifiers: Diabetes mellitus complication status: with unspecified complications Diabetes mellitus detention insulin use: without net development manager use Qualified Code( s): E11.8 - Type 2 diabetes mellitus with unspecified complications (6) Hypoalbuminemia Code(s): E88.09 - OTH DISORDERS OF PLASMA-PROTEIN METABOLISM, NEC Status: Acute (7) Demand ischemia of myocardium Code(s): I24.8 - OTHER FORMS OF ACUTE ISCHEMIC HEART DISEASE Status: Resolved - Plan hemostable -: dc pt home -: to f/u with and as adv -: to continue lasix * .
[2017-09-13 16:28] VITALS: BP 134/69
--- NOTE | 2017-09-14 03:53 | DIS ---
DATE OF ADMISSION: 09/09/2017 DATE OF DISCHARGE: 09/13/2017 DISCHARGE DISPOSITION: To home. PRIMARY DISCHARGE DIAGNOSES: Acute congestive heart failure exacerbation with diastolic dysfunction and ejection fraction of 55%, progressing malignant melanoma, status post lymph node excision from left femoral area. SECONDARY DISCHARGE DIAGNOSES: Hypertension, chronic anemia, hypoalbuminemia with protein malnutrition, diabetes mellitus type 2, demand ischemia on arrival , resolved. PROCEDURES DONE DURING HOSPITALIZATION: The patient has had CT chest, abdomen, and pelvis done which showed interval increase in size of left inguinal mass concerning for metastasis. New large right and moderate left layering pleural effusions, splenomegaly, extensive third spacing of fluid throughout the superficial and deep soft tissues, left-sided adrenal mass unchanged likely adenoma. The inguinal mass on the left side measured 6 x 8 cm with a solid enhancing component. She has had right subclavian vein low profile MediPort fluoroscopy-guided placement. She has also had left groin superficial and deep ilioinguinal femoral node dissection with #19 Gold JENNIFER drain placed. All of these were done on 09/11/[address] Adams. H and H was 9 and 28 with platelet count of 191. Initial BNP was 1666, troponin peaking up to 0.07, BUN 11, creatinine 0.4, albumin was 2.6 on the day of admission. DISCHARGE MEDICATIONS: Aspirin 81 mg p.o. daily, Lipitor 40 mg p.o. at bedtime , Coreg 25 mg twice daily, Lasix 40 mg twice daily, glipizide 2.5 mg p.o. daily , Motrin p.r.n., Cozaar 50 mg p.o. daily, multivitamin 1 tab once daily, Ultram p.r.n., zinc sulfate 220 mg p.o. daily. ALLERGIES: No known drug allergies. INPATIENT CONSULTS: Dr. Lazaro for Cardiology, Dr. Adams for General Surgery , Ms. Janie Benjamin, Nurse Practitioner for Oncology. BRIEF COURSE DURING HOSPITALIZATION: Patient initially got admitted on the with complaints of shortness of breath and progressive weight gain. She had elevated BNP of nearly 1600+. The patient had known history of malignant melanoma, which was diagnosed in 11/2016 and had not followed up with a specialist due to financial reasons and no insurance. She had a large left inguinal lymph node which had progressively become bigger. She was admitted to telemetry and has had gentle diuresis done. Her echo revealed diastolic dysfunction. She has had consultation with Dr. Adams for General Surgery and Ms. Janie Benjamin for Hematology/Oncology, Nurse Practitioner. Patient has had resection of her left large lymph node in the femoral canal. She has diuresed well. The patient has hypoalbuminemia and most of her anasarca is in the interstitium. She needs to continue with high protein diet and Lasix as advised. Patient also has been advised to follow up with her specialists for which she has followup appointments placed. She still has a JENNIFER drain in her left medial aspect of the thigh, post-excisional lymph node resection. She needs to follow up with Dr. Adams as advised. She has been strongly counseled to follow up with Hematology/Oncology for further treatments for her malignant melanoma. Her lymph node biopsy from the left groin area, histopathology is pending at the time this dictation. Please see a face to face documentation on [facility] for the day of discharge. MTDD
--- NOTE | 2017-09-14 13:23 | EKG ---
Test Reason : Blood Pressure : / mmHG Vent. Rate : 100 BPM Atrial Rate : 100 BPM P-R Int : 134 ms QRS Dur : 086 ms QT Int : 332 ms P-R-T Axes : 064 023 227 degrees QTc Int : 428 ms Normal sinus rhythm Cannot rule out Inferior infarct , age undetermined Abnormal ECG Confirmed by JEROMY DUONG ([id number]), make up editor JULIO WARNER ([id number]) on 09/14/2017 1:22:46 PM Referred By: [facility] Confirmed By:JEROMY DUONG
--- NOTE | 2017-09-18 08:16 | PQF ---
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 Kennedy. Please exercise your independent, professional judgment in responding to the clarification form. Clinical indicators are provided on the bottom of this form for your review Pathology report is now available for review. In your professional opinion, please specify patient's left groin mass as: Please check appropriate box(s): Left groin mass is: [ x ] Neoplasm: Type:[ ] Primary [ x ] Secondary[ ] In situ[ ] Overlapping primary [ x ] Malignant [ ] Benign[ ] Undetermined Behavior [ ] Other ____it is metastastasis from primary LE site-which was excised in november of last year [ ] Other diagnosis (please specify) [ ] Unable to determine In addition, please specify: Present on Admission (POA): [ x] Yes [ ] No [ ] Unable to determine For continuity of documentation, please document condition throughout progress notes and discharge summary. Thank You. CLINICAL INDICATORS - SIGNS / SYMPTOMS / LABS (per pathology report) Biopsy results: Soft tissue, left groin mass: Poorly differentiated malignant neoplasm. Pending Cancer type ID. Comment: This resected 200 gram left groin mass has similar histologic features as the previously malignant neoplasm from 2017. At the time, this malignant neoplasm was reviewed in consultation at [facility] revealing a poorly differentiated malignant neoplasm that was staining for SOX10, Melan-A, HMB-45 and tyrosinase. Numerous immunostains were performed and case was seen by multiple pathologists at [place]. It was believed that it represented a poorly differentiated malignant melanoma. RISK FACTORS (per operative report/progress/consult notes) History of melanoma of the left leg. TREATMENT: (per operative report) Excision of left groin mass 09/11/17. (This form is maintained as a part of the permanent medical record) 2014 [employer]. All Rights Reserved [email or web address] [phone] LINNEA
== END 2017-09-13 17:45 | disposition home or self-care (01) | DRG 826 ==
LOC: ERS 11:11 → ERHOLD 13:29 → 2SE 16:56 → 2NO 20:12 → ONC 09-11 18:49
PROVIDERS: ADMIT Internal Medicine; ATTEND Internal Medicine
PROC: 0JBC0ZX Excision of Pelvic Region Subcutaneous Tissue and Fascia, Open Approach, Diagnostic (ICD-10-PCS; principal; 2017-09-11)
PROC: 07TJ0ZZ Resection of Left Inguinal Lymphatic, Open Approach (ICD-10-PCS; 2017-09-11)
PROC: 0JH60WZ Insertion of Totally Implantable Vascular Access Device into Chest Subcutaneous Tissue and Fascia, Open Approach (ICD-10-PCS; 2017-09-11)
PROC: 05H533Z Insertion of Infusion Device into Right Subclavian Vein, Percutaneous Approach (ICD-10-PCS; 2017-09-11)
DX: C79.89 Secondary malignant neoplasm of other specified sites (principal); I50.31 Acute diastolic (congestive) heart failure; J90 Pleural effusion, not elsewhere classified; E46 Unspecified protein-calorie malnutrition; C43.72 Malignant melanoma of left lower limb, including hip; I24.8 Other forms of acute ischemic heart disease; E88.09 Other disorders of plasma-protein metabolism, not elsewhere classified; D48.7 Neoplasm of uncertain behavior of other specified sites; I11.0 Hypertensive heart disease with heart failure; D64.9 Anemia, unspecified; E11.9 Type 2 diabetes mellitus without complications; E66.9 Obesity, unspecified; Z68.33 Body mass index [BMI] 33.0-33.9, adult; Z87.891 Personal history of nicotine dependence
CPT/HCPCS: 36415; 36416; 71045; 71260; 74177; 80053; 80306; 80307; 82553; 83036; 83880; 84484; 84550; 85025; 88309; 88341; 88342; 88360; 93005; 93306; 93798; 94760; 96374; A4216; C1788; J0360; J0670; J1100; J1642; J1650; J1940; J2001; J2270; J2405; J2704

== ENCOUNTER 2017-10-10 13:54 | Outpatient (CLI) | payer SELFPAY ==
[~2017-10-10 13:54] MED LIST changes: -ISOVUE-370 76%-LOCM 1 ML ONE; -Iopamidol 370 76% 50 ML VIAL FS ONE; +Sodium Chloride 0.9% 15 ML NEB ONE
== END 2017-10-10 13:55 | disposition home or self-care (01) ==
LOC: WCC 13:54
PROVIDERS: ATTEND Family Medicine
DX: S31.104D Unspecified open wound of abdominal wall, left lower quadrant without penetration into peritoneal cavity, subsequent encounter (principal)
CPT/HCPCS: 36416; 97602; A4218

== ENCOUNTER 2017-10-17 11:15 | Outpatient (CLI) | payer SELFPAY ==
[2017-10-17] MEDS ORDERED: Sodium Chloride 0.9% 15 ML NEB ONE (21:32)
== END 2017-10-17 11:16 | disposition home or self-care (01) ==
LOC: WCC 11:15
PROVIDERS: ATTEND Family Medicine
DX: T81.89XD Other complications of procedures, not elsewhere classified, subsequent encounter (principal)
CPT/HCPCS: 36416; 97605; A4218

== ENCOUNTER 2017-10-21 15:27 | Outpatient (CLI) | payer SELFPAY | END 2017-10-21 15:28 | disposition home or self-care (01) | LOC: WCC 15:27 | PROVIDERS: ATTEND Family Medicine | DX: T81.89XD Other complications of procedures, not elsewhere classified, subsequent encounter (principal) | CPT/HCPCS: 36416; 97605 ==

== ENCOUNTER 2017-10-24 10:33 | Outpatient (CLI) | payer MEDICAID, SELFPAY ==
--- NOTE | 2017-10-25 01:40 | HP ---
DATE OF SERVICE: 10/24/2017. HISTORY OF PRESENT ILLNESS: Ms. Patience Smith is a very pleasant 47-year-old who presents to the Wound Center for evaluation of a wound of the left groin subsequent to left groin superficial and deep ilioinguinal femoral node dissection. At this time, the patient also underwent MediPort placement. Negative pressure therapy was initiated subsequent to surgery, and the patient was referred to the Wound Center for assistance with dressing changes of the wound VAC. PAST MEDICAL HISTORY: 1. Diabetes mellitus. 2. Hypertension. 3. Anemia. 4. Melanoma. 5. Congestive heart failure. PAST SURGICAL HISTORY: 1. Incision and drainage, irrigation and debridement of left forearm. 2. Excision of left medial leg lesion in 11/2016. 3. Left groin superficial and deep ilioinguinal femoral node dissection/ MediPort placement in 08/2017. MEDICATIONS: 1. Aspirin 81 mg. 2. Lipitor. 3. Coreg. 4. Lasix. 5. Cozaar. 6. Multivitamin. 7. Glipizide. 8. Zinc sulfate. 9. Ultram. ALLERGIES: No known diagnosed allergies. SOCIAL HISTORY: Negative for current tobacco or ETOH use. FAMILY HISTORY: Significant for diabetes mellitus. The patient states that her father and mother were both diagnosed with diabetes mellitus. PHYSICAL EXAMINATION: VITAL SIGNS: Temperature 98.2, respirations 19, blood pressure 201/89. Accu- Chek 259. GENERAL: A 47-year-old female sitting on chair in examination room in no acute distress. HEENT: Normocephalic, atraumatic. NECK: No nuchal rigidity. CHEST: Clear to auscultation. CARDIAC: Regular rate and rhythm. ABDOMEN: Soft. EXTREMITIES: A wound of the left groin is present, which measures approximately 1.6 x 0.5 cm. A tunnel at the 12 o'clock position is present and is approximately 4 cm in length. Granulation tissue is present within the wound margins. No purulent drainage is associated with the wound. No erythema of the skin surrounding the wound is present. No maceration of the skin of the periwound is noted. NEUROLOGIC: Grossly nonfocal. ASSESSMENT AND PLAN: 1. Left groin wound subsequent to left groin superficial and deep ilioinguinal femoral node dissection as described above. Negative pressure therapy was initiated subsequent to surgery and will be continued with dressing changes of the wound VAC here in the Wound Center. No antibiotics will be prescribed today based upon the appearance of the wound. The wound VAC will be placed to settings of 125 mmHg, continuous. I will see Ms. Smith again in two weeks. 2. Diabetes mellitus. The patient's Accu-Chek in clinic today is 259. The patient has been told that for optimal wound healing, her blood glucoses should remain below 150. 3. Hypertension. 4. Anemia. 5. Melanoma. 6. Congestive heart failure. MTDD
== END 2017-10-24 10:34 | disposition home or self-care (01) ==
LOC: WCC 10:33
PROVIDERS: ATTEND Family Medicine
DX: T81.89XD Other complications of procedures, not elsewhere classified, subsequent encounter (principal); E11.69 Type 2 diabetes mellitus with other specified complication; I11.0 Hypertensive heart disease with heart failure; D64.9 Anemia, unspecified; C43.9 Malignant melanoma of skin, unspecified; I50.9 Heart failure, unspecified
CPT/HCPCS: 36416; 97605; 99203; A4218; G0463

== ENCOUNTER 2017-10-28 13:22 | Outpatient (CLI) | payer SELFPAY | END 2017-10-28 13:23 | disposition home or self-care (01) | LOC: WCC 13:22 | PROVIDERS: ATTEND Family Medicine | DX: T81.89XD Other complications of procedures, not elsewhere classified, subsequent encounter (principal) | CPT/HCPCS: 97605 ==

== ENCOUNTER 2017-10-31 12:46 | Outpatient (CLI) | payer SELFPAY | END 2017-10-31 12:47 | disposition home or self-care (01) | LOC: WCC 12:46 | PROVIDERS: ATTEND Family Medicine | DX: T81.89XD Other complications of procedures, not elsewhere classified, subsequent encounter (principal) | CPT/HCPCS: 36416; 97605; A4218 ==

== ENCOUNTER 2017-11-04 13:08 | Outpatient (CLI) | payer SELFPAY | END 2017-11-04 13:09 | disposition home or self-care (01) | LOC: WCC 13:08 | PROVIDERS: ATTEND Family Medicine | DX: T81.89XD Other complications of procedures, not elsewhere classified, subsequent encounter (principal) | CPT/HCPCS: 97605; A4218 ==

== ENCOUNTER 2017-11-07 10:22 | Outpatient (CLI) | payer SELFPAY ==
--- NOTE | 2017-11-07 11:51 | PRG ---
DATE OF SERVICE: 11/07/2017 HISTORY: Ms. Patience Smith is a very pleasant 47-year-old who presents to the Wound Center for alphonso luation of a wound of the left groin subsequent to left groin superficial and deep ilioinguinal femor al node dissection. At this time, the patient also underwent MediPort placement. Negative pressure therapy was initiated subsequent to surgery and the patient was referred to the Wound Center for assi stance with dressing changes of the wound VAC. PHYSICAL EXAMINATION: VITAL SIGNS: Temperature 98.1, pulse 78, respirations 16, blood pressure 201/91. Accu-Chek 262. EXTREMITIES: A wound of the left groin is present which measures approximately 1.0 x 0.5 cm. A tunn el at the 12 o'clock position is present and is approximately 2.2 cm in length. Granulation tissue i s present within the wound margins. No purulent drainage is associated with the wound. No erythema of the skin surrounding the wound is present. No maceration of the skin of the periwound is noted. ASSESSMENT AND PLAN: 1. Left groin wound subsequent to left groin superficial and deep ilioinguinal femoral node dissecti on as described above. Negative pressure therapy was initiated subsequent to surgery and will be con tinued with dressing changes of the wound VAC here in the Wound Center. The wound VAC will be placed to settings of 125 mmHg, continuous. I will see Ms. Smith again in 2 weeks. 2. Diabetes mellitus. The patient's Accu-Chek in clinic today is 262. The patient has been reminde d that for optimal wound healing, her blood glucoses should remain below 150. 3. Hypertension. The patient has been instructed to report to the Emergency Department today in reg osmany to her elevated blood pressure measurements upon her discharge from clinic. 4. Anemia. 5. Melanoma. 6. Congestive heart failure.
== END 2017-11-07 10:23 | disposition home or self-care (01) ==
LOC: WCC 10:22
PROVIDERS: ATTEND Family Medicine
DX: T81.89XD Other complications of procedures, not elsewhere classified, subsequent encounter (principal); E11.9 Type 2 diabetes mellitus without complications; I11.0 Hypertensive heart disease with heart failure; I50.9 Heart failure, unspecified; D64.9 Anemia, unspecified; C43.9 Malignant melanoma of skin, unspecified
CPT/HCPCS: 36416

== ENCOUNTER 2017-11-11 13:31 | Outpatient (CLI) | payer SELFPAY | END 2017-11-11 13:32 | disposition home or self-care (01) | LOC: WCC 13:31 | PROVIDERS: ATTEND Family Medicine | DX: T81.89XD Other complications of procedures, not elsewhere classified, subsequent encounter (principal) | CPT/HCPCS: 36416; A4218 ==

== ENCOUNTER 2017-11-21 10:19 | Outpatient (CLI) | payer SELFPAY ==
--- NOTE | 2017-11-21 11:49 | PRG ---
DATE OF SERVICE: 11/21/2017 HISTORY: Ms. Patience Smith is a very pleasant 47-year-old who presents to the Wound Center for alphonso luation of a wound of the left groin subsequent to left groin superficial and deep ilioinguinal femor al nerve dissection. At this time, the patient also underwent MediPort placement. Negative pressure therapy was initiated subsequent to surgery and the patient was referred to the Wound Center for ass istance with dressing changes of the wound VAC. The patient states that approximately 10 days ago ne gative pressure therapy was discontinued. PHYSICAL EXAMINATION: VITAL SIGNS: Temperature 98.1, pulse 85, respirations 19, blood pressure 193/81. Accu-Chek 112. EXTREMITIES: The wound of the left groin has healed completely. ASSESSMENT AND PLAN: 1. Left groin wound subsequent to left groin superficial and deep ilioinguinal femoral nerve dissect ion. As stated above, the wound has healed completely. [facility]. 2. Diabetes mellitus. The patient's Accu-Chek in clinic today is 112. 3. Hypertension. 4. Anemia. 5. Melanoma. 6. Congestive heart failure.
== END 2017-11-21 10:20 | disposition home or self-care (01) ==
LOC: WCC 10:19
PROVIDERS: ATTEND Family Medicine
DX: E11.622 Type 2 diabetes mellitus with other skin ulcer (principal); L98.499 Non-pressure chronic ulcer of skin of other sites with unspecified severity; I10 Essential (primary) hypertension; D64.9 Anemia, unspecified; C43.9 Malignant melanoma of skin, unspecified; I50.9 Heart failure, unspecified
CPT/HCPCS: 36416; 97602

== ENCOUNTER 2019-12-04 21:54 | Inpatient (IN) | payer MEDICARE, MEDICAID ==
[2019-12-04 22:38] LABS: Hemoglobin 4.1 g/dL (12.0-16.0)
[2019-12-04 22:46] LABS: ALT (SGPT) 7 U/L (8-55); AST (SGOT) 19 U/L (5-34); Alkaline Phosphatase 60 U/L (40-110); Anion Gap 21 mmol/L (10-20); BUN (Urea Nitrogen) 66 mg/dL (9.8-20.1); Bilirubin, Total 0.3 mg/dL (0.2-1.2); Calc. Creatinine Clearance 0 mL/min (70-130); Calcium 8.9 mg/dL (7.8-10.44); Carbon Dioxide 21 mmol/L (22-29); Chloride 100 mmol/L (98-107); Estimated GFR-MDRD 18; Globulin 3.6 g/dL (2.4-3.5); Glucose 152 mg/dL (70-105); Lipase 36 U/L (8-78); Mean Corpuscular HGB CONC 30.9 g/dL (32.0-36.0); Mean Corpuscular Hemoglobin 26.3 pg (27.0-31.0); Mean Corpuscular Volume 85.1 fL (78.0-98.0); Mean Platelet Volume 7.7 fL (7.4-10.4); Platelet Count 531 thou/uL (130-400); Potassium 4.4 mmol/L (3.5-5.1); Protein, Total 7.6 g/dL (6.0-8.3); Red Blood Cell (RBC) Count 1.54 mill/uL (4.20-5.40); Sodium 138 mmol/L (136-145); White Blood Cell (WBC) Count 14.6 thou/uL (4.8-10.8)
[2019-12-04 23:02] LABS: #Basophils 0.2 thou/uL (0.0-0.2); #Eosinphils 0.2 thou/uL (0.0-0.7); #Lymphocytes 1.7 thou/uL (1.20-3.40); #Monocytes 0.7 thou/uL (0.11-0.59); #Neutrophils 11.9 thou/uL (1.40-6.50); %Basophils 1.1 % (0.0-1.0); %Eosinophils 1.3 % (0.0-10.0); %Lymphocytes 11.6 % (21.0-51.0); Hypochromia SLIGHT = 6-15 cells (100X) (0-5/hpf); MDiff Complete? YES; Ovalocytes SLIGHT = 2-5 cells (100X) (0-1/hpf); Platelet Morphology Comment Appears Increased; Reflex for Review?? YES
[2019-12-05] MEDS ORDERED: Dextrose 5% in Water 1,000 ML IV PRN (01:48)
[2019-12-05] MEDS ORDERED: Dextrose 50% Abboject 50 ML SYRINGE SLOW IVP PRN (01:48)
[2019-12-05 01:50] VITALS: BMI 26.6
--- NOTE | 2019-12-05 05:48 | HP ---
REASON FOR ADMISSION: Dizziness. HISTORY OF PRESENT ILLNESS: This is a 49-year-old female patient, who is presenting with unstable gait and generalized fatigue and weakness. She reports being dizzy and wobbly. When she stand up and try to walk, she stumbles. She feels that she has no energy and tired. This has been going on for the past two weeks. Her appetite has decreased. In the emergency room, she was found to be anemic, the patient did report having heavy vaginal bleeding. Since a couple of months ago, she had bleeding for 3 weeks, then it stopped for 1 week, then recurred for 2 weeks. Currently, she has clots whenever she wipes her private area. She denies vomiting blood. Denies dark stools. I did review her records. The patient was diagnosed with melanoma localized on her left knee area. She underwent surgical excision. She was advised to follow with Hematology/Oncology for further treatment, but the patient did not, then she had a swollen lymph node in her left groin in 2017 and did undergo surgical resection. The left groin mass was consistent with metastasis. Her pathology was sent to [facility]. Since then, she did not have an appropriate followup because she did not have insurance coverage, she reports that her periods were always regular and never heavy. PAST MEDICAL HISTORY: 1. Chronic anemia. 2. High blood pressure. 3. Diabetes, type 2. 4. Congestive heart failure secondary to diastolic dysfunction. Ejection fraction documented in 2018 was 55%. SOCIAL HISTORY: She does not smoke. Does not drink alcohol. FAMILY HISTORY: Positive for diabetes. ALLERGIES: NOT KNOWN TO HAVE ANY DRUG ALLERGY. REVIEW OF SYSTEMS: All systems reviewed except the above-mentioned dizziness found to be negative. PHYSICAL EXAMINATION: GENERAL: She is awake, alert, oriented, does not appear in distress. VITAL SIGNS: Her blood pressure is 125/63, saturating 96% on room air, heart rate of 73, and temperature is 97.9. HEENT: Head is nontraumatic and normocephalic. Pupils equal, reactive. Extraocular movements are intact. Nonicteric sclerae. Well injected conjunctivae. Oral mucosa normal. Nasal mucosa normal. NECK: Supple. No adenopathy. No murmur. Thyroid is not palpable. Trachea is midline. No supraclavicular adenopathy. HEART: S1 and S2, regular. No murmur. No gallop. No friction rubs. No displacement of PMI. LUNGS: Clear to auscultation bilaterally. No wheezes. No rhonchi. No crackles. ABDOMEN: Bowel sounds are positive. Nontender abdomen. No hepatosplenomegaly. EXTREMITIES: No lower extremity edema. No cyanosis. NEUROLOGIC: Cranial nerves 2 through 12 within normal limits. Normal motor function. Normal sensory function. Normal reflexes. LABORATORY DATA: Blood work shows WBC of 14.6, hemoglobin of 4.1, last hemoglobin in 2018 was 9.3 and MCV of 85. Sodium 138, potassium 4.4, bicarb 21, BUN of 66, creatinine of 2.8, her last creatinine in 2018 was 1.37 and glucose 152. ASSESSMENT AND PLAN: This is a 49-year-old female patient, who is presenting with fatigue and dizziness, was found to have severe anemia. She did report having vaginal bleeding over the past couple of months. Most likely, it is the cause of her anemia. We will transfuse her and we will investigate the underlying cause of her anemia by doing an ultrasound of the pelvic area to start, and we will consult Gynecology for further input. In regard of her renal insufficiency, I will hold off on her hydrochlorothiazide and Lasix and recheck her electrolytes. For her diabetes, we will hold off on metformin and we will use an insulin sliding scale while she is in the hospital. In regard of her mobility, we will see if she improves after transfusion. I did discuss with her code status and she wishes to be a full code. Will do an MRI of the brain depending on her clinical progression. Job ID: [id number]
[2019-12-05 08:29] LABS: #Basophils 0.1 thou/uL (0.0-0.2); #Eosinphils 0.3 thou/uL (0.0-0.7); #Lymphocytes 2.3 thou/uL (1.20-3.40); #Monocytes 0.8 thou/uL (0.11-0.59); #Neutrophils 9.9 thou/uL (1.40-6.50); %Basophils 0.7 % (0.0-1.0); %Eosinophils 2.2 % (0.0-10.0); %Lymphocytes 17.1 % (21.0-51.0); %Neutrophils 74.1 % (42.0-75.0); Hemoglobin 6.1 g/dL (12.0-16.0); Mean Corpuscular HGB CONC 31.6 g/dL (32.0-36.0); Mean Corpuscular Hemoglobin 27.1 pg (27.0-31.0); Mean Corpuscular Volume 85.7 fL (78.0-98.0); Mean Platelet Volume 7.3 fL (7.4-10.4); Platelet Count 394 thou/uL (130-400); RBC Distribution Width 12.2 % (11.5-14.5); Red Blood Cell (RBC) Count 2.24 mill/uL (4.20-5.40); White Blood Cell (WBC) Count 13.3 thou/uL (4.8-10.8)
[2019-12-05 08:38] LABS: Anion Gap 17 mmol/L (10-20); BUN (Urea Nitrogen) 70 mg/dL (9.8-20.1); Calc. Creatinine Clearance 27 mL/min (70-130); Carbon Dioxide 21 mmol/L (22-29); Chloride 103 mmol/L (98-107); Estimated GFR-MDRD 21; Glucose 132 mg/dL (70-105); Potassium 3.7 mmol/L (3.5-5.1); Sodium 137 mmol/L (136-145)
[2019-12-05] MEDS: Multivit, Therapeutic 1 TAB PO SCH (08:54)
[2019-12-05] MEDS ORDERED: NIFEdipine XL 90 MG TAB PO SCH (09:00)
[2019-12-05] MEDS ORDERED: Prevnar 13-Val Conj/PF 0.5 ML SYRINGE IM ONE (09:00)
--- NOTE | 2019-12-05 10:44 | ULT ---
PELVIC ULTRASOUND INCLUDING TRANSABDOMINAL AND VASCULAR DUPLEX WITH COLOR AND SPECTRAL DOPPLER IMAGIN G: Date: 12/05/2019 HISTORY: Vaginal bleeding. Heavy bleeding for several weeks, now passing clots. FINDINGS: Uterus measures 10.5 x 4.5 x 6.0 cm. Endometrium 1.3 cm, thickened. Right ovary 4.0 x 4.4 x 3.0 cm. Left ovary 3.9 x 2.3 x 3.0 cm. Complicated right ovarian cyst, 2.7 x 2.9 x 3.3 cm, containing some septations. IMPRESSION: 1. No evidence for intra or extrauterine . 2. Right ovarian minimally complicated appearing cyst. 3. No abnormal fluid collection. 4. Somewhat thickened endometrium. 5. Borderline size right ovary. POS: [facility]
[2019-12-05] MEDS ORDERED: Ondansetron PF 4 MG/2 ML Vial IVP PRN (12:27)
[2019-12-05] MEDS ORDERED: Ondansetron PF 4 MG/2 ML Vial IVP SCH (12:30)
--- NOTE | 2019-12-05 13:24 | PDOC.HOSPP ---
- Subjective Encounter Date: 12/05/19 Encounter Time: 13:20 Subjective: f/u for severe anemia and menorrhagia s/p 2u PRBC's. Feels weak and tired with some nausea. - Objective Vital Signs & Weight: Vital Signs (12 hours) Temp Pulse Pulse Resp BP BP BP 12/05/19 11:00 98.6 F 88 20 136/78 12/05/19 07:25 98.6 F 88 20 134/76 12/05/19 06:08 98.5 F 95 18 101/66 12/05/19 04:48 99.1 F 86 18 110/72 12/05/19 04:09 99.2 F 87 20 102/56 L 12/05/19 02:23 98.6 F 94 20 99/64 12/05/19 01:44 98.5 F 97 20 108/66 Pulse Ox 12/05/19 11:00 98 12/05/19 07:25 99 12/05/19 06:08 12/05/19 04:48 12/05/19 04:09 98 12/05/19 02:23 12/05/19 01:44 Weight Weight 136 lb 6.4 oz I&O: 12/04/19 12/05/19 12/06/19 06:59 06:59 06:59 Intake Total 350 Balance 350 Result Diagrams: 12/05/19 08:13 12/05/19 08:13 Additional Labs: Accuchecks 12/05/19 12/05/19 11:09 04:13 POC Glucose 127 H 105 Microbiology 12/04/19 23:50 Stool - Pending Stool Occult Blood (RIGOBERTO) - Final Laboratory Tests 12/04/19 12/04/19 12/04/19 22:17 22:17 23:21 WBC 14.6 H Hgb 4.1 L* 4.0 L* Plt Count 531 H Carbon Dioxide 21 L BUN 66 H Creatinine 2.80 H Radiology Reviewed by me: Yes (Pelvic sono - thickened endometrium, R ovarian cyst) Hospitalist ROS - Medication Medications: Active Medications Generic Name Dose Route Start Last Admin Trade Name Freq PRN Reason Stop Dose Admin Multivitamins 1 tab 12/05/19 09:00 12/05/19 08:54 Theragran PO 1 tab DAILY CHARLY Administration Ondansetron HCl 4 mg 12/05/19 12:30 12/05/19 13:04 Zofran IVP 12/05/19 14:30 4 mg NOW CHARLY Administration - Exam General Appearance: NAD, awake alert General - other findings: Pale Eye: PERRL, anicteric sclera ENT: normocephalic atraumatic, no oropharyngeal lesions Neck: supple, symmetric, no JVD, no thyromegaly Heart: RRR, no murmur, no gallops, no rubs, normal peripheral pulses Respiratory: CTAB, no wheezes, no rales, no ronchi, normal chest expansion Gastrointestinal: soft, non-tender, non-distended, normal bowel sounds, no palpable masses Extremities: no cyanosis, no clubbing, no edema Skin: normal turgor, no lesions Neurological: cranial nerve grossly intact, no new deficit Musculoskeletal: normal tone, normal strength, no muscle wasting Psychiatric: normal affect, A&O x 3 Hosp A/P (1) Symptomatic anemia Code(s): D64.9 - ANEMIA, UNSPECIFIED Status: Acute Plan: s/p 2u PRBC's, continue serial H/H monitoring, repeat CBC in am (2) Acute blood loss anemia Code(s): D62 - ACUTE POSTHEMORRHAGIC ANEMIA Status: Acute Plan: s/p 2u PRBC's, likely due to menorrhagia, transfuse 1u PRBC's today (3) Menorrhagia Code(s): N92.0 - EXCESSIVE AND FREQUENT MENSTRUATION WITH REGULAR CYCLE Status : Acute Plan: Appreciate Local Hazmat Driver assistance, s/e EMB, may need outpt MEDICAL DIR follow up (4) [id number] kidney injury Code(s): N17.9 - ACUTE KIDNEY FAILURE, UNSPECIFIED; N18.9 - CHRONIC KIDNEY DISEASE, UNSPECIFIED Status: Acute Plan: Start IVF's NS @ 100ml/h, avoid nephrotoxic meds and limit contrast exposure (5) DM type 2 (diabetes mellitus, type 2) Status: Chronic Qualifiers: Diabetes mellitus termite control service representative insulin use: without termite control service representative use Diabetes mellitus complication status: with unspecified complications Plan: ISS, serial accuchecks, ADA, hold Metformin due to JOSE LUIS - Plan PT/OT, social worker school, out of bed/ambulate, DVT proph w/SCDs Stable currently Start IVF's Avoid nephrotoxic meds and limit contrast Appreciate MEDICAL DIR assistance Transfuse 1u PRBC's today AM lab: BMP, CBC, Iron/Ferritin/Retic count
[2019-12-05] MEDS: Sodium Chloride 0.9% 1,000 ML IV SCH ×2 (13:39→20:21)
--- NOTE | 2019-12-05 14:13 | CON ---
DATE OF CONSULTATION: 12/05/2019 CHIEF COMPLAINT: Vaginal bleeding with severe anemia. HISTORY OF PRESENT ILLNESS: The patient is a 49-year-old female who was admitted to the hospital early this morning with symptomatic anemia and history of vaginal bleeding. The patient presented with a hemoglobin of 4 and hematocrit of 13, and was given 2 units of packed red blood cells, and admitted for further evaluation. We are consulted when she shared her history of vaginal bleeding. Upon arrival , the patient reported to me that she has a history of normal monthly predictable periods for many, many years until last couple of years. She has began skipping several months at a time, but continued to have light periods when she did have bleeding. The patient reports in the last couple months she has noticed prolonged bleeding , lasting up to 3 weeks, where she will require anywhere between 2 to 4 pads a day. There were 2 evenings 2 nights that she remembers that she required changing a pad every couple hours overnight. The patient reports last Pap smear was when her last child was born, many decades ago, and reports a family history of ovarian cancer with her sister who succumbed to her disease. The patient denies fever, fall, headache, chest pain, or shortness of breath. Reports some nausea. Denies vomiting. Denies diarrhea, constipation, new rashes, hip problems, knee problems, or muscle weakness. PAST MEDICAL HISTORY: 1. Diabetes. 2. Hypertension. 3. History of melanoma, completely treated. 4. Congestive heart failure. PAST SURGICAL HISTORY: She had a skin excision on her leg for melanoma in 2017. Subsequently in 2018, had a lymph node biopsy, also diagnosed with metastasis, and has lack of followup to these 2 events. SOCIAL HISTORY: Denies drug, alcohol, or tobacco use. ALLERGIES: NO KNOWN DRUG ALLERGIES. MEDICATIONS: The patient reports taking metformin 1000 mg twice a day and reports good control with her A1c always being within normal limits. She also reports blood pressure medication. The other medications include: 1. Losartan 100 mg once a day. 2. Hydrochlorothiazide 25 mg once a day. 3. Furosemide 40 mg twice a day. 4. Nifedipine 90 mg once a day. 5. Atorvastatin 40 mg once a day. 6. Potassium chloride. 7. Metformin 1000 mg twice a day. 8. Aspirin. 9. Multivitamin. PHYSICAL EXAMINATION: VITAL SIGNS: Blood pressure is 136/78, temperature 98.6, pulse of 88, respiratory rate of 20, and saturating 98% on room air. GENERAL: She appears to be in no acute distress. She is alert and oriented, cooperative and pleasant to interact with. HEAD: Normocephalic and atraumatic. LUNGS: Clear to auscultation bilaterally. HEART: Regular rate and rhythm. ABDOMEN: Gravid, soft, and nontender. EXTREMITIES: Nontender and nonedematous. GENITOURINARY: Vulva without masses, lesions, or erythema. Vagina is moist with some dark liquid blood present, approximately about 10 to 20 mL and no lesions found along the vaginal wall or vulva or on the cervix. After counseling with the patient to the benefits of an endometrial biopsy and the patient has given verbal consent, the cervix was prepped with Betadine and endometrial pipette was then introduced into the cervix with the aid of a ring forceps on the anterior lip. The endometrial pipette sounded to 9 cm, it was placed on suction, and got good tissue return, which was sent to Pathology for review. LABORATORY STUDIES: Labs from previous exams and other physician, she has had a negative fecal occult blood test. Creatinine of 2.38, BUN is 70, glucose of 132 , and calcium of 8. Transvaginal ultrasound shows an endometrial thickness of 1.3 cm, uterus measuring 10.5 x 4.5 x 6 cm, and a complex right cyst of 2.7 x 2.9 x 3.3 cm on the right ovary. ASSESSMENT AND PLAN: The patient is a 49-year-old female with believed to be experiencing perimenopause or postmenopausal bleeding. She does have a thickened endometrium, which has been successfully sampled. This has been sent to Pathology for review. We did not on exam find any evidence of metastatic lesions in vagina or cervix of metastatic melanoma. We will be following the endometrial biopsy at this time. Job ID: [id number] [facility]
[2019-12-05] MEDS: HumaLOG 300 UNITS/3 ML VIAL SC PRN (20:20)
[2019-12-05] MEDS: Atorvastatin Calcium 40 MG TAB PO SCH (20:20)
[2019-12-06 06:02] LABS: Reticulocyte Count 1.6 % (0.5-1.5)
[2019-12-06 06:26] LABS: Anion Gap 12 mmol/L (10-20); BUN (Urea Nitrogen) 52 mg/dL (9.8-20.1); Calc. Creatinine Clearance 35 mL/min (70-130); Calcium 8.3 mg/dL (7.8-10.44); Carbon Dioxide 23 mmol/L (22-29); Chloride 109 mmol/L (98-107); Estimated GFR-MDRD 29; Glucose 93 mg/dL (70-105); Iron 33 ug/dL (50-170); Potassium 3.9 mmol/L (3.5-5.1); Sodium 140 mmol/L (136-145)
[2019-12-06] MEDS ORDERED: Iron, Sodium Ferric Gluconate 250 MG in Sodium Chloride 0.9% 100 ML IVPB SCH (07:45)
[2019-12-06] MEDS: Multivit, Therapeutic 1 TAB PO SCH (07:49)
[2019-12-06] MEDS: Sodium Chloride 0.9% 1,000 ML IV SCH ×2 (09:11→17:26)
[2019-12-06] MEDS: HumaLOG 300 UNITS/3 ML VIAL SC PRN ×2 (12:11→20:11)
[2019-12-06 13:31] LABS: Hemoglobin 8.7 g/dL (12.0-16.0); MDiff Complete? YES; Mean Corpuscular HGB CONC 34.2 g/dL (32.0-36.0); Mean Corpuscular Hemoglobin 29.8 pg (27.0-31.0); Mean Corpuscular Volume 87.2 fL (78.0-98.0); Mean Platelet Volume 7.9 fL (7.4-10.4); Platelet Count 416 thou/uL (130-400); RBC Distribution Width 12.7 % (11.5-14.5); Red Blood Cell (RBC) Count 2.92 mill/uL (4.20-5.40); White Blood Cell (WBC) Count 13.4 thou/uL (4.8-10.8)
[2019-12-06 13:32] LABS: Band 9 % (5-11); Eosinophils 3 % (0-10); Lymphocytes 14 % (21-51); Monocytes 5 % (0-10); Neutrophil 68 % (42-75); Ovalocytes SLIGHT = 2-5 cells (100X) (0-1/hpf); Platelet Morphology Comment Appears Increased; Polychromasia SLIGHT = 2-3 cells (100X) (0-2/hpf); Reactive Lymphocytes 1 % (0-10); Schistocytes SLIGHT = 2-5 cells (100X) (0-1/hpf); Target Cells SLIGHT = 2-5 cells (100X) (0-1/hpf)
--- NOTE | 2019-12-06 16:27 | PDOC.HOSPP ---
- Subjective Encounter Date: 12/06/19 Encounter Time: 16:05 Subjective: f/u for severe symptomatic anemia s/p 3u PRBC's and IV Iron infusion. Overall feels better but weak. - Objective Vital Signs & Weight: Vital Signs (12 hours) Temp Pulse Resp BP Pulse Ox 12/06/19 07:31 98.1 F 79 20 156/86 H 100 Weight Weight 136 lb 6.4 oz I&O: 12/05/19 12/06/19 12/07/19 06:59 06:59 06:59 Intake Total 350 530 Balance 350 530 Result Diagrams: 12/06/19 11:57 12/06/19 05:48 Additional Labs: Accuchecks 12/06/19 12/06/19 12/05/19 10:57 04:52 19:23 POC Glucose 188 H 111 H 265 H 12/05/19 16:15 POC Glucose 146 H Microbiology 12/04/19 23:50 Stool - Pending Stool Occult Blood (RIGOBERTO) - Final Laboratory Tests 12/04/19 12/04/19 12/04/19 22:17 22:17 23:21 WBC 14.6 H Hgb 4.1 L* 4.0 L* Plt Count 531 H Carbon Dioxide 21 L BUN 66 H Creatinine 2.80 H Iron Ferritin 12/06/19 12/06/19 05:48 05:48 WBC Hgb Plt Count Carbon Dioxide BUN Creatinine Iron 33 L Ferritin 9.51 L Hospitalist ROS - Medication Medications: Active Medications Generic Name Dose Route Start Last Admin Trade Name Freq PRN Reason Stop Dose Admin Atorvastatin Calcium 40 mg 12/05/19 21:00 12/05/19 20:20 Lipitor PO 40 mg HS CHARLY Administration Sodium Chloride 1,000 mls @ 100 mls/hr 12/05/19 13:30 12/06/19 09:11 Normal Saline 0.9% IV Not Given .Q10H CHARLY Insulin Human Lispro 0 units 12/05/19 01:48 12/06/19 12:11 Humalog SC 2 unit .MILD SLIDING SCALE PRN Administration Mild Correctional Scale Multivitamins 1 tab 12/05/19 09:00 12/06/19 07:49 Theragran PO 1 tab DAILY CHARLY Administration - Exam General Appearance: NAD, awake alert Eye: PERRL, anicteric sclera ENT: normocephalic atraumatic, no oropharyngeal lesions Neck: supple, symmetric, no JVD, no thyromegaly Heart: RRR, no murmur, no gallops, no rubs, normal peripheral pulses Heart - other findings: S1, S2 Respiratory: CTAB, no wheezes, no rales, no ronchi, normal chest expansion Gastrointestinal: soft, non-tender, non-distended, normal bowel sounds, no palpable masses Extremities: no cyanosis, no clubbing, no edema Skin: normal turgor, no lesions Neurological: cranial nerve grossly intact, no new deficit Musculoskeletal: normal tone, normal strength, no muscle wasting Psychiatric: normal affect, A&O x 3 Hosp A/P (1) Symptomatic anemia Code(s): D64.9 - ANEMIA, UNSPECIFIED Status: Acute Plan: s/p 3u PRBC's, multifactorial process, see below for mgmt (2) Acute blood loss anemia Code(s): D62 - ACUTE POSTHEMORRHAGIC ANEMIA Status: Acute Plan: Secondary to menorrhagia, outpt FLOOR LAYER follow up (3) Menorrhagia Code(s): N92.0 - EXCESSIVE AND FREQUENT MENSTRUATION WITH REGULAR CYCLE Status : Acute (4) Woafm-tl-hxldyrb kidney injury Code(s): N17.9 - ACUTE KIDNEY FAILURE, UNSPECIFIED; N18.9 - CHRONIC KIDNEY DISEASE, UNSPECIFIED Status: Acute Plan: Improving with volume replacement and PRBC's, continue IVF's, avoid nephrotoxic meds (5) DM type 2 (diabetes mellitus, type 2) Status: Chronic Qualifiers: Diabetes mellitus snf insulin use: without middle or intermediate school principal use Diabetes mellitus complication status: with unspecified complications - Plan out of bed/ambulate, DVT proph w/SCDs Stable currently Continue IVF's Avoid nephrotoxic meds and limit contrast Appreciate FLOOR LAYER assistance IV Iron today AM lab: BMP, H/H Home in am
[2019-12-06] MEDS: Atorvastatin Calcium 40 MG TAB PO SCH (20:10)
[2019-12-07] MEDS: Sodium Chloride 0.9% 1,000 ML IV SCH (02:06)
[2019-12-07 05:57] LABS: Anion Gap 11 mmol/L (10-20); BUN (Urea Nitrogen) 36 mg/dL (9.8-20.1); Calc. Creatinine Clearance 40 mL/min (70-130); Calcium 8.5 mg/dL (7.8-10.44); Carbon Dioxide 21 mmol/L (22-29); Chloride 112 mmol/L (98-107); Estimated GFR-MDRD 33; Glucose 102 mg/dL (70-105); Potassium 3.8 mmol/L (3.5-5.1); Sodium 140 mmol/L (136-145)
[2019-12-07] MEDS: Multivit, Therapeutic 1 TAB PO SCH (08:09)
[2019-12-07 11:21] VITALS: TEMP 98.1
[2019-12-07] MEDS: HumaLOG 300 UNITS/3 ML VIAL SC PRN (11:47)
--- NOTE | 2019-12-07 12:46 | DIS ---
DATE OF ADMISSION: 12/05/2019 DATE OF DISCHARGE: 12/07/2019 DISCHARGE DIAGNOSES: 1. Severe symptomatic anemia, status post 3 units of packed red blood cells, multifactorial. 2. Acute blood loss anemia secondary to menorrhagia. 3. Menorrhagia. 4. Acute kidney injury on chronic kidney disease, stage 3. 5. Iron deficiency anemia. 6. Diabetes mellitus, type 2. 7. Hypertension. CONSULTATIONS: Dr. Raphael with [facility]. PERTINENT LABORATORY AND X-RAY FINDINGS: Creatinine ranged between 1.63 to 2.80, estimated GFR ranged between 18 to 33. Serum iron level 33. Ferritin 9.51. Albumin 4.0. Lipase 36. CBC showed a white blood cell count ranging between 13.3 to 14.6, hemoglobin ranged between 4.0 to 8.7, MCV 87, reticulocyte count 1.6. Stool Hemoccult dated 12/04/2019, negative x1. HOSPITAL COURSE: The patient was admitted after presenting with severe dizziness, generalized weakness, and fatigue in the context of severe anemia with hemoglobin of 4.0. The patient also with concomitant menorrhagia, undergoing transfusion of 2 units of packed red blood cells initially after presentation. The patient was evaluated by the [facility] due to menorrhagia, undergoing endometrial biopsy and pelvic ultrasound. Ultrasound showed an endometrial thickness of 1.3 cm with complex right ovarian cyst. Current recommendations are for outpatient followup with the [facility] for further evaluation and potential hormonal manipulation for menorrhagia. The patient received an additional 1 unit of packed red blood cells as well as IV fluids after initial metabolic panel showed acute kidney injury. The patient's renal function improved with volume replacement in addition to packed red blood cell transfusions, stabilizing prior to discharge. The patient overall remained clinically stable during the hospital course, tolerating regular oral intake, and ambulating without assistance or difficulty. I have examined the patient at the time of discharge and discussed followup instructions. The patient verbalized understanding and agreement, ready for discharge on 12/07/2019. DISCHARGE MEDICATIONS: 1. Ferrous sulfate 325 mg p.o. b.i.d. 2. Hydrochlorothiazide 25 mg p.o. daily. 3. Metformin 1000 mg p.o. b.i.d. 4. Procardia XL 90 mg p.o. daily. 5. Enteric-coated aspirin 81 mg p.o. daily. 6. Lipitor 40 mg p.o. at bedtime. 7. Multivitamin 1 tablet p.o. daily. FOLLOWUP: The patient will follow up with [facility] in [place], [place] within 7 days of discharge. The patient will follow up with [facility] and to call their office for appointment time and date. CONDITION ON DISCHARGE: Stable. ACTIVITY: Ad anne marie. DIET: ADA and heart-healthy. CODE STATUS: Full. DISPOSITION: Home on 12/07/2019. TIME SPENT: Total time preparing and coordinating discharge, 32 minutes. Job ID: [id number]
[2019-12-07 15:00] VITALS: BP 160/77
--- NOTE | 2019-12-10 09:25 | PQF ---
LOUIE NATION CHARLES DO [id number] CLINICAL DOCUMENTATION CLARIFICATION FORM: POST DISCHARGE Addendum to original discharge summary date: ____ Late entry note date: __ DATE:12/10/2019 ATTN: Kenji Ballard Please exercise your independent, professional judgment in responding to the clarification form. Clinical indicators are provided on the bottom of this form for your review In your clinical opinion based on clinical findings below, can you please identify the etiology of Menorrhagia if dye to: Please check appropriate box(s): [ ] Uterus Hyperplasia [ ] Ovarian Cyst [ x ] Perimenopause or Postmenopausal bleeding [ ] Other diagnosis [ ] Unable to determine For continuity of documentation, please document condition throughout progress notes and discharge summary. Thank You. CLINICAL INDICATORS - SIGNS / SYMPTOMS / LABS Transvaginal ultrasouns 12/07 Endomediral thickness of 1.3cm, uterus measuring 10.5 x 5.5 x 6cm and complex right cyst of ovary Pathology report 12/07 Simple Hyperplasia without atypia Pathology report 12/07 The specimen consistent of multiple fragments of dark red hemorrhagic tissue and mucoid material H&P p2 12/04 Dr Keenan She did report having Vaginal bleeding over the past couple of months Consult p3 12/07 Believed to be experiencing perimenopausal or postmenopausal bleeding RISK FACTORS H&P p1 12/04 49 year-old Female H&P p1 12/04 High blood pressure H&P p1 12/04 DM 2 H&P p1 12/04 CHF Discharge summary p1 12/06 Acute blood loss Anemia Discharge summary p1 12/06 Ovarian cyst Discharge summary p1 12/06 Endometrial thickness TREATMENTS: Uterine Biopsy 12/04 Dr Raphael Transvaginal Ultrason 12/04 Dr Raphael Pulvic ultrasound 12/04 Dr Basurto OB-Gyne Consult 12/04 Dr Raphael [facility] Blood bank 12/04 - PRBC (This form is maintained as a part of the permanent medical record) 2014 [email or web address]. All Rights Reserved [email or web address]
== END 2019-12-07 14:48 | disposition home or self-care (01) | DRG 744 ==
LOC: ERS 21:54 → T4-A 12-05 00:25
PROVIDERS: ADMIT Internal Medicine; ATTEND Internal Medicine
PROC: 0UB97ZX Excision of Uterus, Via Natural or Artificial Opening, Diagnostic (ICD-10-PCS; principal; 2019-12-05)
PROC: 30233N1 Transfusion of Nonautologous Red Blood Cells into Peripheral Vein, Percutaneous Approach (ICD-10-PCS; 2019-12-05)
DX: N92.4 Excessive bleeding in the premenopausal period (principal); D62 Acute posthemorrhagic anemia; N17.9 Acute kidney failure, unspecified; I50.32 Chronic diastolic (congestive) heart failure; N18.3 Chronic kidney disease, stage 3 (moderate); D50.9 Iron deficiency anemia, unspecified; E11.22 Type 2 diabetes mellitus with diabetic chronic kidney disease; I12.9 Hypertensive chronic kidney disease with stage 1 through stage 4 chronic kidney disease, or unspecified chronic kidney disease; Z85.820 Personal history of malignant melanoma of skin; N83.209 Unspecified ovarian cyst, unspecified side; Z79.82 Long term (current) use of aspirin; Z85.89 Personal history of malignant neoplasm of other organs and systems; Z79.899 Other long term (current) drug therapy; Z79.84 Long term (current) use of oral hypoglycemic drugs
CPT/HCPCS: 36415; 36416; 36430; 76856; 80048; 80053; 82274; 82728; 83540; 83690; 85025; 85046; 85060; 86850; 86900; 86901; 88305; 93005; 93976; J2405; J2916; J3490; P9016

== ENCOUNTER 2020-07-08 19:08 | Inpatient (IN) | payer MEDICARE, MEDICAID ==
[~2020-07-08 19:08] MED LIST changes: +Glycopyrrolate 0.2 MG/ML 5 ML SYRINGE ONE; +Lidocaine 1% PF 5 ML VIAL ONE; +Ondansetron PF 4 MG/2 ML Vial ONE; +PHENYLEPHRINE-NS 100 MCG/ML 10 ML SYRINGE ONE; +PROPOFOL 200 MG/20 ML VIAL ONE; +Rocuronium Bromide 10 MG/ML (10ML VIAL) ONE; -Sodium Chloride 0.9% 15 ML NEB ONE
--- NOTE | 2020-07-08 20:31 | RAD ---
RADIOGRAPH CHEST 1 VIEW: DATE: 07/08/2020 HISTORY: 50-year-old female with anorexia and nausea FINDINGS: There is no airspace density, pulmonary edema, or pneumothorax. The lateral costophrenic angles are n ot effaced. There is a right subclavian MediPort with distal tip in the lower portion of the right atrium near the IVC. IMPRESSION: 1) No acute pulmonary findings. 2) right-sided implantable vascular access port
[2020-07-08 20:40] LABS: #Basophils 0.1 thou/uL (0.0-0.2); #Eosinphils 0.4 thou/uL (0.0-0.7); #Lymphocytes 1.4 thou/uL (1.20-3.40); #Monocytes 0.7 thou/uL (0.11-0.59); #Neutrophils 10.7 thou/uL (1.40-6.50); %Basophils 0.8 % (0.0-1.0); %Eosinophils 3.2 % (0.0-10.0); %Lymphocytes 10.4 % (21.0-51.0); %Monocytes 5.2 % (0.0-10.0); %Neutrophils 80.3 % (42.0-75.0); Hemoglobin 9.4 g/dL (12.0-16.0); Mean Corpuscular HGB CONC 32.3 g/dL (32.0-36.0); Mean Corpuscular Hemoglobin 29.9 pg (27.0-31.0); Mean Corpuscular Volume 92.5 fL (78.0-98.0); Mean Platelet Volume 9.1 fL (7.4-10.4); Platelet Count 352 thou/uL (130-400); RBC Distribution Width 13.7 % (11.5-14.5); Red Blood Cell (RBC) Count 3.14 mill/uL (4.20-5.40); White Blood Cell (WBC) Count 13.3 thou/uL (4.8-10.8)
[2020-07-08] MEDS ORDERED: Ondansetron PF 4 MG/2 ML Vial ONE (20:42)
[2020-07-08 21:02] LABS: ALT (SGPT) Less than 7 U/L (8-55); AST (SGOT) 14 U/L (5-34); Alkaline Phosphatase 75 U/L (40-110); Anion Gap 16 mmol/L (10-20); BUN (Urea Nitrogen) 53 mg/dL (9.8-20.1); Bilirubin, Total 0.3 mg/dL (0.2-1.2); CK (CPK) 118 U/L (29-168); Calc. Creatinine Clearance 0 mL/min (70-130); Calcium 8.3 mg/dL (7.8-10.44); Carbon Dioxide 19 mmol/L (22-29); Chloride 111 mmol/L (98-107); Globulin 3.1 g/dL (2.4-3.5); Glucose 111 mg/dL (70-105); Lipase 83 U/L (8-78); Magnesium 1.6 mg/dL (1.6-2.6); Potassium 5.5 mmol/L (3.5-5.1); Protein, Total 6.1 g/dL (6.0-8.3); Sodium 140 mmol/L (136-145)
[2020-07-08 21:14] LABS: Bilirubin Negative (Negative); Blood, Urine 1+ (Negative); Clarity Clear (Clear); Glucose, Urine (Dipstick) 100 mg/dL (Negative); Ketone, Urine Negative (Negative); Leukocyte Negative Leu/uL (Negative); Nitrite Negative (Negative); Protein, Urine (Dipstick) 600 mg/dL (Neg-Trace); RBC/HPF 0-3 HPF (0-3); Specific Gravity, Urine 1.023 (1.002-1.036); Squamous Epithelial 0-3 HPF (0-3); Urobilinogen Normal mg/dL (Less than 2); WBC/HPF 0-3 HPF (0-3); pH, Urine 7.5 (5.0-9.0)
[2020-07-08 21:28] LABS: Bacteria/HPF Rare-Few HPF (None Seen)
--- NOTE | 2020-07-08 21:44 | CT ---
CT ABDOMEN NONCONTRAST CT PELVIS NONCONTRAST: (Urolithiasis protocol) DATE: 07/08/2020 HISTORY: 50 year old female with nausea, anorexia, and right lower quadrant abdominal pain. COMPARISON: 09/09/2017 TECHNIQUE: IV injection of iodinated contrast media: Not administered, due to renal insufficiency. Oral contrast media: None FINDINGS: Other than for urolithiasis, the lack of IV and oral contrast limits the evaluation. Again noted is the severe soft tissue edema throughout the subcutaneous fat surrounding the abdominal cavity and pelvic cavity. There is minimal free fluid within the pelvic cavity, less than on prior CTA. No small bowel dilation. No renal, ureteral, or bladder calculus. Diffuse mural thickening of the decompressed urinary bladder. Extensive sigmoid and descending colonic diverticulosis. No conclusive evidence of diverticulitis. Minimal dilation of bilateral renal collecting systems. Small bilateral pleural effusions, significant a smaller than on previous CT. No adjacent consolidati on of lung bases. No pneumoperitoneum. Previously seen large mass in the left groin has been surgically resected, and there is now a cluster of surgical clips in that region. Multiple tiny calcified gallstones within a nondistended gallbladder. Small pericardial effusion. Left adrenal myolipoma is stable. Within the limitations of a noncontrast scan, no definite major pathology identified involving abdomi nal aorta, spleen, pancreas, right adrenal, or liver. IMPRESSION: 1) severe edema throughout the subcutaneous fat circumferentially around the abdomen and pelvis. 2) minimal free fluid within pelvic cavity. 3) small bilateral pleural effusions. 4) cholelithiasis. 5.) No urolithiasis, and no high-grade obstructive uropathy.
[2020-07-08 21:53] LABS: Sodium, Urine 68 mmol/L (Not Available); Urea Nitrogen, Random Urine 371 mg/dl
[2020-07-08 22:23] LABS: Protein, Urine Random Quant Greater than 2000 mg/dL (1-14)
[2020-07-08 23:59] LABS: Troponin I 0.019 ng/mL (< 0.028)
[2020-07-09 02:45] LABS: Troponin I 0.022 ng/mL (< 0.028)
[2020-07-09] MEDS ORDERED: Acetaminophen 650 MG Suppository PR PRN (03:22)
--- NOTE | 2020-07-09 03:42 | PDOC.HHP ---
Hospitalist HPI - History of Present Illness History of Present Illness: ADMISSION DATE: 07/09/2020 TIME OF ASSESSMENT: 0200 PRIMARY CARE PHYSICIAN: Leticia martin CHIEF COMPLAINT: Generally unwell with persisting nausea, vomiting and diarrhea x1 week HPI: This is a 50-year-old woman who states that she began feeling generally unwell 1 week ago. States that she started vomiting at that time and has persisted until today. Reports having nausea almost constantly and also reports having 2 loose stools per day. Has not noted any blood in the stool. Given the fact that she is felt generally unwell her appetite has also diminished. Reports having some mild lower abdominal discomfort. States she has been unable to tolerate any p.o. intake including her medications and therefore opted to seek medical attention today. Denies any significant worsening in her symptoms today but states that she has not improved which is concerning her. She reports bilateral lower extremity swelling and states she has had issues with fluid retention in the past. She feels her left lower extremity has always been worse than the right due to lymph node dissection that took place on the left side. Denies any calf redness or warmth. She has also developed some swelling involving both upper extremities. Patient previously on diuretics. These were stopped 1 month ago. ROS: She reports feeling generally weak and with general malaise but denies having any fevers chills or sweats. No chest pain palpitations or shortness of breath. Denies any urinary symptoms. No headaches or dizziness. All other review of systems are negative from what is mentioned above in HPI. ED COURSE: EKG done in the emergency department showed a normal sinus rhythm with a heart rate of 77. No ST changes or T wave abnormalities present. Laboratory studies demonstrated a white cell count of 13.3, hemoglobin 9.4, hematocrit 29, neutrophils 80.3%. Sodium 140, potassium 5.5, BUN 53, creatinine 6.60, GFR 7, glucose 111, LFTs normal. Lipase 83, CK 118. Troponin negative. BNP 1045.7. Chest x-ray showed no acute pulmonary findings. Right-sided implantable vascular access port present. CT imaging of the abdomen and pelvis demonstrated severe edema throughout the subcutaneous fat circumferentially around the abdomen and pelvis. Minimal free fluid within the pelvic cavity. Small bilateral pleural effusions. Cholelith iasis. No urolithiasis and no high-grade obstructive uropathy. In the ED the only medication patient received was ondansetron 4 mg IV given for nausea. Of note last echo done September 09, 2017 demonstrated an EF of 55 to 60% with a normal-sized left ventricle. Mild tricuspid regurgitation. Impaired relaxation compatible with diastolic dysfunction. PAST MEDICAL HISTORY: 1. CHF 2. Type 2 diabetes mellitus 3. Hypertension 4. Chronic anemia PAST SURGICAL HISTORY: 1. Surgery for staph infection years ago 2. Mole excised from leg SOCIAL HISTORY: She lives with her family. She is fully independent at baseline. She walks independently. FAMILY HISTORY: Positive for diabetes ALLERGIES: No known drug allergies CURRENT MEDICATIONS: 1. Losartan 100 mg p.o. daily 2. Hydrochlorothiazide 25 mg p.o. daily 3. Nifedipine 90 mg p.o. daily 4. Atorvastatin 40 mg p.o. at bedtime 5. Potassium chloride 20 mEq p.o. daily 6. Metformin 1000 mg p.o. twice daily 7. Aspirin 81 mg p.o. daily 8. Multivitamin 1 tablet p.o. daily - Exam General Appearance: NAD, awake alert General - other findings: VS: Temp 98.1, HR 89, RR 20, O2 sat 90% on room air, BP 156/86. Eye: PERRL, anicteric sclera ENT: normocephalic atraumatic, moist mucosa Neck: supple, no lymphadenopathy Heart: RRR, no murmur, no gallops, no rubs, normal peripheral pulses Respiratory: CTAB, no wheezes, no rales, no ronchi, normal chest expansion Gastrointestinal: soft, non-tender, non-distended, normal bowel sounds, no guarding, no rigidity Extremities: 2+ LE edema (bilateral lower legs with trace edema of bilateral upper extremities) Skin: normal turgor, no lesions, no rashes Neurological: cranial nerve grossly intact, normal sensation to touch Musculoskeletal: normal tone, normal strength, no muscle wasting Psychiatric: normal affect, normal behavior, A&O x 3 Hospitalist Results - Labs Result Diagrams: 07/08/20 20:09 07/08/20 20:09 Lab results: WBC 13.3 thou/uL (4.8-10.8) H 07/08/20 20:09 Hgb 9.4 g/dL (12.0-16.0) L 07/08/20 20:09 Hct 29.0 % (36.0-47.0) L 07/08/20 20:09 MCV 92.5 fL (78.0-98.0) 07/08/20 20:09 Plt Count 352 thou/uL (130-400) 07/08/20 20:09 Neutrophils % 80.3 % (42.0-75.0) H 07/08/20 20:09 Sodium 140 mmol/L (136-145) 07/08/20 20:09 Potassium 5.5 mmol/L (3.5-5.1) H 07/08/20 20:09 Chloride 111 mmol/L (98-107) H 07/08/20 20:09 Carbon Dioxide 19 mmol/L (22-29) L 07/08/20 20:09 BUN 53 mg/dL (9.8-20.1) H 07/08/20 20:09 Creatinine 6.60 mg/dL (0.6-1.1) H 07/08/20 20:09 Glucose 111 mg/dL (70-105) H 07/08/20 20:09 Calcium 8.3 mg/dL (7.8-10.44) 07/08/20 20:09 Total Bilirubin 0.3 mg/dL (0.2-1.2) 07/08/20 20:09 AST 14 U/L (5-34) 07/08/20 20:09 ALT Less than 7 U/L (8-55) L 07/08/20 20:09 Alkaline Phosphatase 75 U/L (40-110) 07/08/20 20:09 Creatine Kinase 118 U/L (29-168) 07/08/20 20:09 Troponin I 0.022 ng/mL (< 0.028) 07/09/20 02:06 B-Natriuretic Peptide 1045.7 pg/mL (0-100) H 07/08/20 20:09 Serum Total Protein 6.1 g/dL (6.0-8.3) 07/08/20 20:09 Albumin 3.0 g/dL (3.5-5.0) L 07/08/20 20:09 Lipase 83 U/L (8-78) H 07/08/20 20:09 Urine Ketones Negative mg/dL (Negative) 07/08/20 20:58 Urine Blood 1+ (Negative) A 12/25/20 20:58 Urine Nitrite Negative (Negative) 07/08/20 20:58 Ur Leukocyte Esterase Negative Ananya/uL (Negative) 07/08/20 20:58 Urine RBC 0-3 HPF (0-3) 07/08/20 20:58 Urine WBC 0-3 HPF (0-3) 07/08/20 20:58 Ur Squamous Epith Cells 0-3 HPF (0-3) 07/08/20 20:58 Urine Bacteria Rare-Few HPF (None Seen) 07/08/20 20:58 - Radiology Interpretation CT scan - abdomen Status: report reviewed by oh Hospitalist H&P A/P - Problem (1) [id number] kidney injury Code(s): N17.9 - ACUTE KIDNEY FAILURE, UNSPECIFIED; N18.9 - CHRONIC KIDNEY DISEASE, UNSPECIFIED Status: Acute Assessment and Plan: Monitor renal function Nephrology consult pending Avoid nephrotoxic medications (2) Nausea vomiting and diarrhea Code(s): R11.2 - NAUSEA WITH VOMITING, UNSPECIFIED; R19.7 - DIARRHEA, UNSPECIFIED Status: Acute Assessment and Plan: Continue anti-emetics prn (Zofran 4 mg IV) Stool studies ordered IV fluids as per nephrology input given severely diminished renal function from baseline with background of edema/fluid retention. (3) Extremity edema Code(s): R60.0 - LOCALIZED EDEMA Status: Acute Assessment and Plan: No crackles or evidence of pulmonary edema on exam Extremity edema noted with elevated BNP Hold lasix for now given renal function and no evidence of fluid in lungs Appreciate nephrology input Continue cardiac monitoring Venous doppler of both lower legs Repeat Echo (4) Generalized weakness Code(s): R53.1 - WEAKNESS Status: Acute Assessment and Plan: PT/OT consulted No neuro deficits on exam (5) Chronic anemia Code(s): D64.9 - ANEMIA, UNSPECIFIED Status: Chronic Assessment and Plan: Iron studies ordered Monitor H/H No transfusion indicated at this time (6) DM type 2 (diabetes mellitus, type 2) Status: Chronic Qualifiers: Diabetes mellitus penitentiary insulin use: without terminal manager use Diabetes mellitus complication status: with unspecified complications Assessment and Plan: Monitor glucose ([facility]) Initiated sliding scale (7) HTN (hypertension) Code(s): I10 - ESSENTIAL (PRIMARY) HYPERTENSION Status: Chronic Qualifiers: Hypertension type: essential hypertension Qualified Code(s): I10 - Essential (primary) hypertension Assessment and Plan: Monitor BP resume home medications once verified - Plan Plan: GI Prophylaxis with Famotidine DVT Prophylaxis with heparin CODE STATUS FULL Case discussed with Dr. Dickey who agrees with plan as above.
[2020-07-09] MEDS ORDERED: HumaLOG 300 UNITS/3 ML VIAL SC PRN (04:12)
[2020-07-09] MEDS ORDERED: Dextrose 50% Abboject 50 ML SYRINGE SLOW IVP PRN (04:12)
[2020-07-09] MEDS ORDERED: Dextrose 5% in Water 1,000 ML IV PRN (04:12)
[2020-07-09 04:44] LABS: Chloride 113 mmol/L (98-107); Potassium 5.6 mmol/L (3.5-5.1); Sodium 140 mmol/L (136-145)
[2020-07-09 04:45] LABS: Calcium 7.7 mg/dL (7.8-10.44); Glucose 98 mg/dL (70-105)
[2020-07-09 04:47] LABS: Carbon Dioxide 16 mmol/L (22-29)
[2020-07-09 04:49] LABS: Calc. Creatinine Clearance 12 mL/min (70-130)
[2020-07-09 04:50] LABS: BUN (Urea Nitrogen) 52 mg/dL (9.8-20.1)
[2020-07-09 04:51] LABS: Anion Gap 18 mmol/L (10-20); Iron 38 ug/dL (50-170); Iron Binding Capacity, Total 219 mcg/dL (265-497)
[2020-07-09 05:21] LABS: #Basophils 0.1 thou/uL (0.0-0.2); #Eosinphils 0.4 thou/uL (0.0-0.7); #Lymphocytes 1.4 thou/uL (1.20-3.40); #Monocytes 0.7 thou/uL (0.11-0.59); #Neutrophils 8.3 thou/uL (1.40-6.50); %Basophils 0.9 % (0.0-1.0); %Eosinophils 3.8 % (0.0-10.0); %Monocytes 6.5 % (0.0-10.0); %Neutrophils 75.9 % (42.0-75.0); Hemoglobin 9.6 g/dL (12.0-16.0); Mean Corpuscular HGB CONC 33.1 g/dL (32.0-36.0); Mean Corpuscular Hemoglobin 31.2 pg (27.0-31.0); Mean Corpuscular Volume 94.4 fL (78.0-98.0); Mean Platelet Volume 8.9 fL (7.4-10.4); Platelet Count 300 thou/uL (130-400); RBC Distribution Width 13.7 % (11.5-14.5); Red Blood Cell (RBC) Count 3.07 mill/uL (4.20-5.40)
[2020-07-09 05:42] LABS: Ferritin 46.73 ng/mL (10-291)
[2020-07-09] MEDS ORDERED: LOKELMA 10 GM PACKET PO SCH (06:45)
[2020-07-09] MEDS ORDERED: LOKELMA 5 GM PACKET PO SCH (06:45)
[2020-07-09 08:32] LABS: SARS-CoV-2 MS2 Positive; SARS-CoV-2 N Gene Negative; SARS-CoV-2 S Gene Negative; SARS-CoV-2 by NAA Not Detected (NotDetected); SARS-CoV-2 orf1ab Negative
[2020-07-09] MEDS: Ferrous Sulfate 325 MG TAB PO SCH ×2 (08:35→21:36)
[2020-07-09] MEDS: Multivit, Therapeutic 1 TAB PO SCH (08:35)
[2020-07-09] MEDS: Famotidine 20 MG TAB PO SCH (08:35)
[2020-07-09] MEDS: Nebivolol HCl 5 MG TAB PO SCH (08:35)
[2020-07-09] MEDS ORDERED: Aspirin Chewable 81 MG TAB PO SCH (09:00)
[2020-07-09] MEDS ORDERED: Losartan 25 MG TAB PO SCH (09:00)
--- NOTE | 2020-07-09 09:03 | ULT ---
RENAL ULTRASOUND HISTORY: Renal failure COMPARISON: CT abdomen pelvis without contrast dated July 08, 2020 FINDINGS: Right Kidney: Size: 11.2 x 5.3 x 5.2 centimeters Abnormality: Normal cortical echotexture. No hydronephrosis. Left Kidney: Size: 10.4 x 5.5 x 5.3 centimeters Abnormality: Normal cortical echotexture. No hydronephrosis Urinary bladder: 117.4 cc. No suspicious abnormality IMPRESSION: No hydronephrosis.
--- NOTE | 2020-07-09 09:04 | ULT ---
BILATERAL LOWER EXTREMITY VENOUS DOPPLER EVALUATION PROVIDED CLINICAL HISTORY: Bilateral lower extremity edema and pain TECHNIQUE: Grayscale, color doppler and spectral doppler images were obtained of the common femoral , femoral, profunda femoral, popliteal and posterior tibial veins of both lower extremities. FINDINGS: There is normal compression, flow and augmentation seen with the deep venous structures within both l ower extremities. IMPRESSION: No sonographic evidence for lower extremity deep venous thrombosis.
[2020-07-09 09:09] LABS: Complement-C4 25.5 mg/dL (15-57)
--- NOTE | 2020-07-09 11:55 | PDOC.BPN ---
- Brief Progress Note Encounter Date: 07/09/20 Encounter Time: 10:00 pt seen on f/u for renal failure and intractable nausea and vomiting. patient recently admitted. states is feeling better and nauseas are controlled with current medication. nephrology was consulted and will see the patient today. continue with current tx and avoid nephrotoxic medication
[2020-07-09] MEDS ORDERED: Sodium Chloride 0.9% 1,000 ML IV SCH (12:00)
[2020-07-09] MEDS ORDERED: Sodium Bicarbonate 150 MEQ in Dextrose 5% in Water 1,000 ML IV SCH (13:15)
[2020-07-09] MEDS ORDERED: NIFEdipine XL 60 MG TAB PO SCH (13:30)
[2020-07-09 14:20] LABS: Anion Gap 17 mmol/L (10-20); BUN (Urea Nitrogen) 52 mg/dL (9.8-20.1); BUN/Creatinine Ratio 7.87; Calc. Creatinine Clearance 12 mL/min (70-130); Calcium 7.5 mg/dL (7.8-10.44); Carbon Dioxide 19 mmol/L (22-29); Chloride 111 mmol/L (98-107); Glucose 88 mg/dL (70-105); Phosphorus 2.2 mg/dL (2.3-4.7); Potassium 5.5 mmol/L (3.5-5.1); Sodium 141 mmol/L (136-145)
--- NOTE | 2020-07-09 15:35 | CON ---
DATE OF CONSULTATION: 07/09/2020 SERVICE: Nephrology. REASON FOR CONSULTATION: Hyperkalemia and acute renal failure. REQUESTING PROVIDER: LAURA Rios HISTORY OF PRESENT ILLNESS: A 50-year-old obese female with known history of generalized swelling, diabetes mellitus and hypertension, admitted with 1-week history of nausea, vomiting, and diarrhea as well as abdominal discomfort associated with worsening generalized edema. The patient reportedly has been having edema since more than four years, but in the last few days it got worse. She reported that she used to take Lasix, but that was discontinued about 1 month ago due to concern that it may cause kidney problem. She denied fever, chills, rigor, hematemesis, hematochezia, dysuria, or hematuria. She also denied NSAID use. In the emergency room, the patient was found to have markedly elevated creatinine of 6.6, necessitating Nephrology consult. The patient at home takes losartan as well as metformin for hypertension and diabetes respectively and had continued to take these medications up until yesterday morning in July 08. She reported poor oral intake due to malaise, nausea, and vomiting. PAST MEDICAL HISTORY: 1. Generalized edema. 2. Type 2 diabetes mellitus diagnosed in 2018. 3. Hypertension. 4. Chronic anemia. 5. Melanoma of left popliteal area, status post resection. PAST SURGICAL HISTORY: 1. Incision and drainage for abscess x2. 2. Mole excision from left popliteal area. FAMILY HISTORY: Significant for diabetes and hypertension in both parents. There is also significant history of cancer in mother, sister and brother. Brother had colon cancer. Otherwise, sister had cervical cancer. Mother also had a CVA. SOCIAL HISTORY: The patient lives with family. Denied smoking, alcohol, or recreational drug use. MEDICATIONS: Prior to hospital medications are as follows; 1. Losartan 100 mg p.o. daily. 2. Hydrochlorothiazide 25 mg p.o. daily. 3. Nebivolol 40 mg p.o. daily. 4. Metformin 1000 mg p.o. b.i.d. 5. Aspirin 81 mg p.o. daily. 6. Ferrous sulfate 325 mg p.o. b.i.d. 7. Lipitor 40 mg p.o. daily. 8. Multivitamin 1 tablet p.o. daily. ALLERGIES: NO KNOWN DRUG ALLERGIES REPORTED. REVIEW OF SYSTEMS: A 12-point review of system performed, was negative, other than pertinent positives and negatives included in the history of present illness. PHYSICAL EXAMINATION: VITAL SIGNS: Temperature 98.2, pulse 70, respiratory rate 16, SpO2 of 100% on room air, blood pressure is 160/90. GENERAL: Obese female, in no obvious distress. Afebrile. HEENT: Anicteric. Acyanotic. Normocephalic, atraumatic. Oral mucosa is moist. NECK: Supple with no obvious JVD. CARDIOVASCULAR: Regular rhythm and rate. Normal heart sounds one and two. RESPIRATORY: Fair air entry bilateral, decreased at both bases with no obvious crackle or rhonchi or use of accessory muscles. GI: Obese, soft, nontender, nondistended with normal bowel sounds. Abdominal wall edema noted. EXTREMITIES: Mild to moderate upper extremity and moderate to severe lower extremity edema noted. No erythema appreciated. SCALLOP DREDGER: Conscious and alert and oriented x3 with appropriate mental status. Cranial nerves II through XII are grossly intact. The patient moves all extremities. DIAGNOSTIC DATA: CBC today showed WBC count of 11.0, hemoglobin of 9.6, MCV of 94.4, platelet of 300. On presentation yesterday, WBC was 13.3, hemoglobin 9.4, and platelets 352. Chemistry today showed sodium 140, potassium 5.6, chloride 113, CO2 of 16, BUN 52, creatinine 6.62, calcium 7.7. On presentation yesterday, sodium was 140, potassium 5.5, chloride 111, CO2 of 19, BUN 53, creatinine 6.60, glucose 111, calcium 8.3, magnesium 1.6, total bilirubin 0.3, AST 14, ALT less than 7, alkaline phosphatase 75, total protein 6.1, albumin 3.0. Cardiac markers on presentation showed troponin of 0.010, CK 118, and BNP of 1045.7. Urinalysis performed on presentation showed light yellow clear urine with pH of 7.5, specific gravity of 1.023. Urine protein 600 mg/dL, glucose 100 mg/dL, negative ketone, 1+ blood. Negative nitrite, bilirubin, and leukocyte esterase. Microscopy showed 0 to 3 rbc and 0 to 3 wbc. Urine protein was 2000 while urine creatinine was 73.5 with of more than 10 g per gram of creatinine. Urine sodium is 68, creatinine 73.5, urea nitrogen 371 with fractional excretion of sodium of 4.4. COVID PCR was negative. Chest x-ray performed on presentation yesterday showed right-sided implantable vascular access, but no acute pulmonary finding. There was no pulmonary edema or pneumothorax or airspace density. CT scan of the abdomen and pelvis without contrast performed on presentation yesterday showed severe edema throughout the subcutaneous fat tissue circumferentially around the abdomen and pelvis. Minimal free fluid within the pelvic cavity as well as small bilateral pleural effusion. Cholelithiasis is noted, but there was no urolithiasis or high-grade obstructive uropathy. Renal ultrasound showed no hydronephrosis with right kidney measuring 11.2 x 5.3 x 5.2 with normal echo texture, left measures 10.4 x 5.7 x 5.3 cm with normal cortical echo texture and no hydronephrosis. Review of medical record showed the patient had creatinine of 1.63 on February 06, 2020. The patient also was noted to have elevated creatinine ranging from 1.0 to 1.3 in 2018. Review medical record also showed the patient had more than 300 mg/dL of protein in 2017. ASSESSMENT: 1. Acute kidney injury: Etiology is unclear. The patient had baseline chronic kidney disease stage 3. Acute worsening most likely is related to hemodynamic factor due to volume depletion in a patient taking losartan. Progression of chronic kidney disease is another concern. 2. Chronic kidney disease, stage 3: Etiology is unclear. Given diagnosis of diabetes for about 2 years ago with generalized swelling that predated that, glomerulonephritis with nephrosis is a concern. Review of medical records showed the patient had significant proteinuria in 2017. The patient also reported generalized swelling since 2017 at least. 3. Nephrotic range proteinuria concerning for nephrotic syndrome. 4. Diabetes mellitus, on treatment. 5. Hypertension, on treatment. 6. Obesity. 7. Hyperkalemia: Most likely due to acute kidney injury and use of losartan. 8. Metabolic acidosis. 9. Anemia of chronic kidney disease/chronic illness. PLAN: 1. We will start sodium bicarbonate infusion. 2. We will also give a dose of Lokelma for hyperkalemia. 3. We will hold losartan at this point. We will also avoid nephrotoxic agent. 4. We will start nifedipine for BP control. 5. We will also get a 24-hour urine collection to quantify the proteinuria. We will also get urine protein electrophoresis as well as free light chain and serum protein electrophoresis, SURYA complement, double-stranded DNA. We will also stop aspirin in view of need for renal biopsy. We will repeat renal function test later today to ascertain improvement in metabolic acidosis and hyperkalemia. 6. We will plan on getting renal biopsy during this hospitalization. 7. Further treatment to follow depending on hospital course. Many thanks for involving us in the care of this patient. We will follow along with you. Job ID: [id number]
[2020-07-09] MEDS ORDERED: Furosemide 100 MG/10 ML VIAL SLOW IVP SCH (16:45)
[2020-07-09] MEDS ORDERED: FLU VACC QS2020-21(6MOS UP)/PF 60 MCG/0.5 ML SYRINGE IM ONE (21:00)
[2020-07-09 21:30] LABS: Anion Gap 16 mmol/L (10-20); BUN (Urea Nitrogen) 49 mg/dL (9.8-20.1); Calc. Creatinine Clearance 12 mL/min (70-130); Calcium 7.8 mg/dL (7.8-10.44); Carbon Dioxide 16 mmol/L (22-29); Chloride 111 mmol/L (98-107); Glucose 120 mg/dL (70-105); Potassium 5.3 mmol/L (3.5-5.1); Sodium 138 mmol/L (136-145)
[2020-07-09] MEDS: Atorvastatin Calcium 40 MG TAB PO SCH (21:36)
[2020-07-10 05:12] LABS: Albumin 2.6 g/dL (3.5-5.0); Anion Gap 15 mmol/L (10-20); BUN (Urea Nitrogen) 50 mg/dL (9.8-20.1); BUN/Creatinine Ratio 7.58; Calc. Creatinine Clearance 12 mL/min (70-130); Calcium 7.6 mg/dL (7.8-10.44); Carbon Dioxide 17 mmol/L (22-29); Chloride 111 mmol/L (98-107); Glucose 154 mg/dL (70-105); Phosphorus 2.3 mg/dL (2.3-4.7); Potassium 4.9 mmol/L (3.5-5.1); Sodium 138 mmol/L (136-145)
[2020-07-10 07:18] LABS: Hemoglobin 9.1 g/dL (12.0-16.0); Mean Corpuscular HGB CONC 32.9 g/dL (32.0-36.0); Mean Corpuscular Hemoglobin 30.4 pg (27.0-31.0); Mean Corpuscular Volume 92.5 fL (78.0-98.0); Mean Platelet Volume 8.9 fL (7.4-10.4); Platelet Count 337 thou/uL (130-400); RBC Distribution Width 13.7 % (11.5-14.5); Red Blood Cell (RBC) Count 2.98 mill/uL (4.20-5.40); White Blood Cell (WBC) Count 12.6 thou/uL (4.8-10.8)
[2020-07-10 07:46] LABS: Eosinophils 4 % (0-10); Lymphocytes 8 % (21-51); MDiff Complete? YES; Monocytes 5 % (0-10); Neutrophil 83 % (42-75); Platelet Morphology Comment Appears Adequate
[2020-07-10] MEDS: Albumin 25% 25 GM/100 ML BOT IVPB SCH ×3 (07:56→17:59)
[2020-07-10] MEDS: Furosemide 100 MG/10 ML VIAL SLOW IVP SCH ×2 (07:56→20:55)
[2020-07-10] MEDS: Nebivolol HCl 5 MG TAB PO SCH (07:57)
[2020-07-10] MEDS: Sodium Bicarbonate Tab 325 MG TAB PO SCH ×3 (07:57→20:54)
[2020-07-10] MEDS: Famotidine 20 MG TAB PO SCH (07:57)
[2020-07-10] MEDS: Multivit, Therapeutic 1 TAB PO SCH (07:58)
[2020-07-10] MEDS: Ferrous Sulfate 325 MG TAB PO SCH ×2 (07:58→20:54)
[2020-07-10] MEDS ORDERED: NIFEdipine XL 60 MG TAB PO SCH (09:00)
[2020-07-10] MEDS ORDERED: Metolazone 5 MG TAB PO SCH (09:00)
--- NOTE | 2020-07-10 09:02 | PDOC.HOSPP ---
- Subjective Encounter Date: 07/10/20 Encounter Time: 09:03 Subjective: patient in chair eating breakfast, collecting 24 hour urine sample. no acute issues overnight, reports some tremor/shaking this morning but now improved. no chest pain or shortness of breath - Objective Vital Signs & Weight: Vital Signs (12 hours) Temp Pulse Resp BP Pulse Ox 07/10/20 08:29 98.2 F 75 16 175/90 H 99 07/10/20 07:57 97 07/10/20 04:10 168/96 H 07/10/20 04:00 98.6 F 97 20 97 07/09/20 23:46 78 168/98 H Weight Admit Weight 173 lb 8 oz Weight 173 lb 8 oz Result Diagrams: 07/10/20 07:02 07/10/20 04:13 Additional Labs: Accuchecks 07/10/20 07/09/20 07/09/20 05:54 20:35 16:51 POC Glucose 153 H 116 H 120 H labs reviewed Radiology Reviewed by me: Yes Hospitalist ROS - Medication Medications: Active Medications Generic Name Dose Route Start Last Admin Trade Name Freq PRN Reason Stop Dose Admin Albumin Human 25 gm 07/10/20 06:45 07/10/20 07:56 Albumin 25% 25 Gm/100 Ml Bot IVPB 07/11/20 00:46 25 gm Q6H CHARLY Administration Atorvastatin Calcium 40 mg 07/09/20 21:00 07/09/20 21:36 Atorvastatin Calcium 40 Mg Tab PO 40 mg HS CHARLY Administration Famotidine 20 mg 07/09/20 09:00 07/10/20 07:57 Famotidine 20 Mg Tab PO 20 mg DAILY CHARLY Administration Ferrous Sulfate 325 mg 07/09/20 09:00 07/10/20 07:58 Ferrous Sulfate 325 Mg Tab PO 325 mg BID CHARLY Administration Furosemide 80 mg 07/10/20 09:00 07/10/20 07:56 Furosemide 100 Mg/10 Ml Vial SLOW IVP 80 mg BID CHARLY Administration Sodium Bicarbonate 150 meq/ 1,150 mls @ 50 mls/hr 07/09/20 13:15 07/09/20 18:34 Dextrose/Water IV 1,150 mls INF CHARLY Administration Metolazone 5 mg 07/10/20 09:00 07/10/20 07:58 Metolazone 5 Mg Tab PO 5 mg DAILY CHARLY Administration Multivitamins 1 tab 07/09/20 09:00 07/10/20 07:58 Multivit, Therapeutic 1 Tab PO 1 tab DAILY CHARLY Administration Nebivolol 40 mg 07/09/20 09:00 07/10/20 07:57 Nebivolol Hcl 5 Mg Tab PO 40 mg DAILY CHARLY Administration Nifedipine 60 mg 07/10/20 09:00 07/10/20 07:57 Nifedipine Xl 60 Mg Tab PO 60 mg DAILY CHARLY Administration Sodium Bicarbonate 650 mg 07/10/20 09:00 07/10/20 07:57 Sodium Bicarbonate Tab 325 Mg Tab PO 650 mg TID CHARLY Administration - Exam General Appearance: NAD, awake alert Eye: PERRL, anicteric sclera ENT: normocephalic atraumatic, no oropharyngeal lesions, moist mucosa Neck: supple, symmetric, no JVD, no thyromegaly, no lymphadenopathy, no carotid bruit Heart: RRR, no murmur, no gallops, no rubs, normal peripheral pulses Respiratory: CTAB, no wheezes, no rales, no ronchi, normal chest expansion, no tachypnea, normal percussion Gastrointestinal: soft, non-tender, non-distended, normal bowel sounds, no palpable masses, no hepatomegaly, no splenomegaly, no bruit Extremities: no cyanosis, no clubbing, no edema Skin: normal turgor, no lesions, no rashes Neurological: cranial nerve grossly intact, normal sensation to touch, no weakness, no focal deficits, no new deficit Musculoskeletal: normal tone, normal strength, no muscle wasting Psychiatric: normal affect, normal behavior, A&O x 3 Hosp A/P (1) Extremity edema Code(s): R60.0 - LOCALIZED EDEMA Status: Acute (2) Generalized weakness Code(s): R53.1 - WEAKNESS Status: Acute (3) [id number] kidney injury Code(s): N17.9 - ACUTE KIDNEY FAILURE, UNSPECIFIED; N18.9 - CHRONIC KIDNEY DISEASE, UNSPECIFIED Status: Acute (4) DM type 2 (diabetes mellitus, type 2) Status: Chronic Qualifiers: Diabetes mellitus care home insulin use: without care home use Diabetes mellitus complication status: with unspecified complications (5) HTN (hypertension) Code(s): I10 - ESSENTIAL (PRIMARY) HYPERTENSION Status: Chronic Qualifiers: Hypertension type: essential hypertension Qualified Code(s): I10 - Essential (primary) hypertension - Plan # acute renal failure - with uremia and acidosis - appreciate nephrology consultation - 24 hour urine collection underway, renal biopsy this admission - labs reviewed, proteinuria noted, no real significant positive diagnostic tests so far - avoid nephrotoxic medications # nausea, vomiting, diarrhea - improved, perhaps due to uremia # anasarca - likely due to renal failure, improved today No crackles or evidence of pulmonary edema on exam Extremity edema noted with elevated BNP Hold lasix for now given renal function and no evidence of fluid in lungs Appreciate nephrology input Continue cardiac monitoring Venous doppler of both lower legs -> no DVT noted Repeat Echo # weakness - generalized PT/OT consulted No neuro deficits on exam # chronic anemia Iron studies ordered Monitor H/H No transfusion indicated at this time # t2dm Monitor glucose ([facility]) Initiated sliding scale # HTN Monitor BP resume home medications once verified GI Prophylaxis with Famotidine DVT Prophylaxis with heparin CODE STATUS FULL
--- NOTE | 2020-07-10 12:54 | PDOC.NEPPN ---
- Subjective Encounter Date: 07/10/20 Subjective: Seen in follow up for JOSE LUIS on CKD associated with anasarca. Swelling of upper limbs is reportedly better. No nausea or vomiting.Denied headache of focal weakness. Subjective: non-verbal - Objective Vital Signs & Weight: Vital Signs (12 hours) Temp Pulse Resp BP Pulse Ox 07/10/20 12:16 97.8 F 80 16 160/85 H 98 07/10/20 08:29 98.2 F 75 16 175/90 H 99 07/10/20 08:00 99 07/10/20 07:57 97 07/10/20 04:10 168/96 H 07/10/20 04:00 98.6 F 97 20 97 Weight Admit Weight 173 lb 8 oz Weight 173 lb 8 oz Result Diagrams: 07/10/20 07:02 07/10/20 04:13 Additional Labs: Accuchecks 07/10/20 07/10/20 07/09/20 11:08 05:54 20:35 POC Glucose 187 H 153 H 116 H 07/09/20 16:51 POC Glucose 120 H Nephrology ROS - Medication Medications: Active Medications Generic Name Dose Route Start Last Admin Trade Name Freq PRN Reason Stop Dose Admin Albumin Human 25 gm 07/10/20 06:45 07/10/20 12:11 Albumin 25% 25 Gm/100 Ml Bot IVPB 07/11/20 00:46 25 gm Q6H CHARLY Administration Atorvastatin Calcium 40 mg 07/09/20 21:00 07/09/20 21:36 Atorvastatin Calcium 40 Mg Tab PO 40 mg HS CHARLY Administration Famotidine 20 mg 07/09/20 09:00 07/10/20 07:57 Famotidine 20 Mg Tab PO 20 mg DAILY CHARLY Administration Ferrous Sulfate 325 mg 07/09/20 09:00 07/10/20 07:58 Ferrous Sulfate 325 Mg Tab PO 325 mg BID CHARLY Administration Furosemide 80 mg 07/10/20 09:00 07/10/20 07:56 Furosemide 100 Mg/10 Ml Vial SLOW IVP 80 mg BID CHARLY Administration Sodium Bicarbonate 150 meq/ 1,150 mls @ 50 mls/hr 07/09/20 13:15 07/09/20 18:34 Dextrose/Water IV 1,150 mls INF CHARLY Administration Metolazone 5 mg 07/10/20 09:00 07/10/20 07:58 Metolazone 5 Mg Tab PO 5 mg DAILY CHARLY Administration Multivitamins 1 tab 07/09/20 09:00 07/10/20 07:58 Multivit, Therapeutic 1 Tab PO 1 tab DAILY CHARLY Administration Nebivolol 40 mg 07/09/20 09:00 07/10/20 07:57 Nebivolol Hcl 5 Mg Tab PO 40 mg DAILY CHARLY Administration Nifedipine 60 mg 07/10/20 09:00 07/10/20 07:57 Nifedipine Xl 60 Mg Tab PO 60 mg DAILY CHARLY Administration Sodium Bicarbonate 650 mg 07/10/20 09:00 07/10/20 07:57 Sodium Bicarbonate Tab 325 Mg Tab PO 650 mg TID CHARLY Administration - Exam General Appearance: awake alert General - other findings: morbidly obese Eye: anicteric sclera ENT: normocephalic atraumatic, moist mucosa Neck: supple, symmetric Respiratory - other findings: fair air entry bilaterally Cardiovascular: RRR Gastrointestinal: soft, non-tender, normal bowel sounds Gastrointestinal - other findings: obese Extremities - other findings: moderate to severe edema of the legs. Neurological: CN's grossly intact, no focal deficits PSYCH: A&O x 3 Nephrology Results - Labs Result Diagrams: 07/10/20 07:02 07/10/20 04:13 Lab results: WBC 12.6 thou/uL (4.8-10.8) H 07/10/20 07:02 Hgb 9.1 g/dL (12.0-16.0) L 07/10/20 07:02 Hct 27.5 % (36.0-47.0) L 07/10/20 07:02 MCV 92.5 fL (78.0-98.0) 07/10/20 07:02 Plt Count 337 thou/uL (130-400) 07/10/20 07:02 Neutrophils % 75.9 % (42.0-75.0) H 07/09/20 04:48 ESR Westergren 22 mm/hr (Less than 30) 07/09/20 09:11 Sodium 138 mmol/L (136-145) 07/10/20 04:13 Potassium 4.9 mmol/L (3.5-5.1) 07/10/20 04:13 Chloride 111 mmol/L (98-107) H 07/10/20 04:13 Carbon Dioxide 17 mmol/L (22-29) L 07/10/20 04:13 BUN 50 mg/dL (9.8-20.1) H 07/10/20 04:13 Creatinine 6.60 mg/dL (0.6-1.1) H 07/10/20 04:13 Glucose 154 mg/dL (70-105) H 07/10/20 04:13 Calcium 7.6 mg/dL (7.8-10.44) L 07/10/20 04:13 Total Bilirubin 0.3 mg/dL (0.2-1.2) 07/08/20 20:09 AST 14 U/L (5-34) 07/08/20 20:09 ALT Less than 7 U/L (8-55) L 07/08/20 20:09 Alkaline Phosphatase 75 U/L (40-110) 07/08/20 20:09 Creatine Kinase 118 U/L (29-168) 07/08/20 20:09 Troponin I 0.022 ng/mL (< 0.028) 07/09/20 02:06 C-Reactive Protein 0.67 mg/dL (= or < 0.5) H 07/09/20 10:07 B-Natriuretic Peptide 1045.7 pg/mL (0-100) H 07/08/20 20:09 Serum Total Protein 6.1 g/dL (6.0-8.3) 07/08/20 20:09 Albumin 2.6 g/dL (3.5-5.0) L 07/10/20 04:13 Lipase 83 U/L (8-78) H 07/08/20 20:09 Urine Ketones Negative mg/dL (Negative) 07/08/20 20:58 Urine Blood 1+ (Negative) A 07/08/20 20:58 Urine Nitrite Negative (Negative) 07/08/20 20:58 Ur Leukocyte Esterase Negative Ananya/uL (Negative) 07/08/20 20:58 Urine RBC 0-3 HPF (0-3) 07/08/20 20:58 Urine WBC 0-3 HPF (0-3) 07/08/20 20:58 Ur Squamous Epith Cells 0-3 HPF (0-3) 07/08/20 20:58 Urine Bacteria Rare-Few HPF (None Seen) 07/08/20 20:58 Sodium 138 mmol/L (136-145) 07/10/20 04:13 Potassium 4.9 mmol/L (3.5-5.1) 07/10/20 04:13 Chloride 111 mmol/L (98-107) H 07/10/20 04:13 Carbon Dioxide 17 mmol/L (22-29) L 07/10/20 04:13 Anion Gap 15 mmol/L (10-20) 07/10/20 04:13 BUN 50 mg/dL (9.8-20.1) H 07/10/20 04:13 Creatinine 6.60 mg/dL (0.6-1.1) H 07/10/20 04:13 Glucose 154 mg/dL (70-105) H 07/10/20 04:13 Calcium 7.6 mg/dL (7.8-10.44) L 07/10/20 04:13 Phosphorus 2.3 mg/dL (2.3-4.7) 07/10/20 04:13 Magnesium 1.6 mg/dL (1.6-2.6) 07/08/20 20:09 Albumin 2.6 g/dL (3.5-5.0) L 07/10/20 04:13 Nephrology AP PN - Plan ASSESSMENT: Acute kidney injury: Etiology is unclear. The patient had baseline chronic kidney disease stage 3. Acute worsening most likely is related to hemodynamic factor due to volume depletion in a patient taking losartan. Progression of chronic kidney disease is another concern. No significant chane in creat so far. Chronic kidney disease, stage 3: Etiology is unclear. Unlikely DM nephropathy as she was diagnosed of diabetes for about 2 years ago and generalized swelling that predated that, Glomerulonephritis and or nephrosis is a concern. Review of medical records showed the patient had significant proteinuria in 2017. Nephrotic range proteinuria concerning for nephrotic syndrome. Nephrotic range Proteinuria Diabetes mellitus, on treatment. Hypertension, on treatment. Obesity. Hyperkalemia: Most likely due to acute kidney injury and use of losartan. Resolved Metabolic acidosis. Anemia of chronic kidney disease/chronic illness. HTN: Control is suboptimal. PLAN Start albumin infusion. Start diuretic therapy to help with fluid overload Continue alkali therapy Start nifedipine to help with BP. monitor I/O and renal function Await ordered diagnostics tests. Renal biopsy planned. patient took ASA on 07/07/2020.
[2020-07-10 14:50] LABS: ANA Symphony (Qualitative) Negative (Negative); ANA Symphony (Quantitative) 0.2 Ratio (< 0.7 Negative); dsDNA IgG Antibody Less than 0.5 IU/mL (<10 Negative)
[2020-07-10] MEDS: Acetaminophen 325 MG TAB PO PRN (16:44)
[2020-07-10] MEDS: NIFEdipine XL 60 MG TAB PO SCH (20:55)
[2020-07-10] MEDS: Atorvastatin Calcium 40 MG TAB PO SCH (20:55)
[2020-07-11] MEDS: Albumin 25% 25 GM/100 ML BOT IVPB SCH (00:28)
[2020-07-11 05:32] LABS: #Basophils 0.1 thou/uL (0.0-0.2); #Eosinphils 0.5 thou/uL (0.0-0.7); #Lymphocytes 1.1 thou/uL (1.20-3.40); #Monocytes 0.6 thou/uL (0.11-0.59); #Neutrophils 8.4 thou/uL (1.40-6.50); %Eosinophils 4.4 % (0.0-10.0); %Lymphocytes 10.4 % (21.0-51.0); %Monocytes 5.2 % (0.0-10.0); %Neutrophils 79.1 % (42.0-75.0); Albumin 3.4 g/dL (3.5-5.0); Anion Gap 18 mmol/L (10-20); BUN (Urea Nitrogen) 57 mg/dL (9.8-20.1); BUN/Creatinine Ratio 7.86; Calc. Creatinine Clearance 11 mL/min (70-130); Calcium 7.8 mg/dL (7.8-10.44); Carbon Dioxide 18 mmol/L (22-29); Chloride 110 mmol/L (98-107); Glucose 161 mg/dL (70-105); Hemoglobin 8.6 g/dL (12.0-16.0); Magnesium 1.6 mg/dL (1.6-2.6); Mean Corpuscular HGB CONC 30.4 g/dL (32.0-36.0); Mean Corpuscular Hemoglobin 28.2 pg (27.0-31.0); Mean Corpuscular Volume 92.7 fL (78.0-98.0); Mean Platelet Volume 10.3 fL (7.4-10.4); Phosphorus 2.9 mg/dL (2.3-4.7); Platelet Count 198 thou/uL (130-400); Potassium 4.6 mmol/L (3.5-5.1); RBC Distribution Width 13.8 % (11.5-14.5); Red Blood Cell (RBC) Count 3.03 mill/uL (4.20-5.40); Sodium 141 mmol/L (136-145); White Blood Cell (WBC) Count 10.6 thou/uL (4.8-10.8)
[2020-07-11] MEDS: HumaLOG 300 UNITS/3 ML VIAL SC PRN ×2 (05:51→17:55)
[2020-07-11] MEDS ORDERED: Furosemide 100 MG/10 ML VIAL SLOW IVP SCH (06:00)
[2020-07-11 06:42] LABS: Cardiac Risk 2.6 (Less than 4.5); Cholesterol 81 mg/dl (< 200 Desired); HDL Cholesterol 31 mg/dL (>60 Neg Risk); LDL Cholesterol, Calculated 35 mg/dL; Triglycerides 77 mg/dL (Less than 150)
[2020-07-11] MEDS: Acetaminophen 325 MG TAB PO PRN ×2 (09:26→22:24)
[2020-07-11] MEDS: NIFEdipine XL 60 MG TAB PO SCH ×2 (09:27→22:23)
[2020-07-11] MEDS: Sodium Bicarbonate Tab 325 MG TAB PO SCH ×3 (09:32→22:26)
[2020-07-11] MEDS: Labetalol 100 MG TAB PO SCH ×2 (09:32→22:24)
[2020-07-11] MEDS: Multivit, Therapeutic 1 TAB PO SCH (09:33)
[2020-07-11] MEDS: Ferrous Sulfate 325 MG TAB PO SCH ×2 (09:33→22:25)
[2020-07-11] MEDS: Famotidine 20 MG TAB PO SCH (09:33)
[2020-07-11 10:13] LABS: Kappa Lambda Light Chain Ratio 1.52 (0.26-1.65); Kappa Light Chains 107.6 mg/L (3.3-19.4); Lambda Light Chain 70.9 mg/L (5.7-26.3)
--- NOTE | 2020-07-11 13:59 | PDOC.HOSPP ---
- Subjective Encounter Date: 07/11/20 Encounter Time: 13:59 Subjective: in chair, depressed affect, discussed negative results so far, not urinating much and sad with lack of progress. - Objective Vital Signs & Weight: Vital Signs (12 hours) Temp Pulse Resp BP BP Pulse Ox 07/11/20 11:55 97.8 F 71 16 119/60 98 07/11/20 09:27 71 131/63 07/11/20 08:10 97.9 F 70 16 120/64 99 07/11/20 03:00 98.5 F 75 20 160/80 H 98 Weight Admit Weight 173 lb 8 oz Weight 175 lb 12.8 oz I&O: 07/10/20 07/11/20 07/12/20 06:59 06:59 06:59 Intake Total 700 Output Total 450 Balance 250 Result Diagrams: 07/11/20 04:45 07/11/20 04:45 Additional Labs: Accuchecks 07/11/20 07/10/20 07/10/20 05:44 20:38 16:41 POC Glucose 154 H 168 H 133 H Hospitalist ROS - Medication Medications: Active Medications Generic Name Dose Route Start Last Admin Trade Name Freq PRN Reason Stop Dose Admin Acetaminophen 650 mg 07/09/20 03:22 07/11/20 09:26 Acetaminophen 325 Mg Tab PO 650 mg Q4H PRN Administration Headache/Fever/Mild Pain (1-3) Atorvastatin Calcium 40 mg 07/09/20 21:00 07/10/20 20:55 Atorvastatin Calcium 40 Mg Tab PO 40 mg HS CHARLY Administration Famotidine 20 mg 07/09/20 09:00 07/11/20 09:33 Famotidine 20 Mg Tab PO 20 mg DAILY CHARLY Administration Ferrous Sulfate 325 mg 07/09/20 09:00 07/11/20 09:33 Ferrous Sulfate 325 Mg Tab PO 325 mg BID CHARLY Administration Insulin Human Lispro 0 units 07/09/20 04:12 07/11/20 05:51 Humalog 300 Units/3 Ml Vial SC 2 unit .MILD SLIDING SCALE PRN Administration Mild Correctional Scale Labetalol HCl 100 mg 07/11/20 09:00 07/11/20 09:32 Labetalol 100 Mg Tab PO 100 mg BID CHARLY Administration Multivitamins 1 tab 07/09/20 09:00 07/11/20 09:33 Multivit, Therapeutic 1 Tab PO 1 tab DAILY CHARLY Administration Nifedipine 60 mg 07/10/20 21:00 07/11/20 09:27 Nifedipine Xl 60 Mg Tab PO 60 mg BID CHARLY Administration Sodium Bicarbonate 1,300 mg 07/11/20 09:00 07/11/20 09:32 Sodium Bicarbonate Tab 325 Mg Tab PO 1,300 mg TID CHARLY Administration Sodium Chloride 10 ml 07/09/20 03:22 07/11/20 09:26 Flush - Normal Saline 10 Ml Syringe IVF 10 ml Q12HR PRN Administration Saline Flush - Exam General Appearance: NAD, awake alert Eye: PERRL, anicteric sclera ENT: normocephalic atraumatic, no oropharyngeal lesions, moist mucosa Neck: supple, symmetric, no JVD, no thyromegaly, no lymphadenopathy, no carotid bruit Heart: RRR, no murmur, no gallops, no rubs, normal peripheral pulses Respiratory: CTAB, no wheezes, no rales, no ronchi, normal chest expansion, no tachypnea, normal percussion Gastrointestinal: soft, non-tender, non-distended, normal bowel sounds, no palpable masses, no hepatomegaly, no splenomegaly, no bruit Extremities: no cyanosis, no clubbing, no edema Skin: normal turgor, no lesions, no rashes Neurological: cranial nerve grossly intact, normal sensation to touch, no weakness, no focal deficits, no new deficit Musculoskeletal: normal tone, normal strength, no muscle wasting Psychiatric: normal affect, normal behavior, A&O x 3 Hosp A/P (1) Extremity edema Code(s): R60.0 - LOCALIZED EDEMA Status: Acute (2) Generalized weakness Code(s): R53.1 - WEAKNESS Status: Acute (3) [id number] kidney injury Code(s): N17.9 - ACUTE KIDNEY FAILURE, UNSPECIFIED; N18.9 - CHRONIC KIDNEY DISEASE, UNSPECIFIED Status: Acute (4) DM type 2 (diabetes mellitus, type 2) Status: Chronic Qualifiers: Diabetes mellitus fdc insulin 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 - avoid nephrotoxic medications # nausea, vomiting, diarrhea - improved, perhaps due to uremia # anasarca - likely due to renal failure, improved today No crackles or evidence of pulmonary edema on exam Extremity edema noted with elevated BNP Hold lasix for now given renal function and no evidence of fluid in lungs Appreciate nephrology input Continue cardiac monitoring Venous doppler of both lower legs -> no DVT noted Repeat Echo # weakness - generalized PT/OT consulted No neuro deficits on exam # chronic anemia Iron studies ordered Monitor H/H No transfusion indicated at this time # t2dm Monitor glucose ([facility]) Initiated sliding scale # HTN Monitor BP resume home medications once verified GI Prophylaxis with Famotidine DVT Prophylaxis with heparin CODE STATUS FULL dispo: home once workup complete. no need for telemetry anymore, k appears normalized
[2020-07-11 14:13] LABS: Albumin 2.7 g/dL (2.9-4.4); Alpha 1 0.3 g/dL (0.0-0.4); Alpha 2 0.8 g/dL (0.4-1.0); Beta 0.9 g/dL (0.7-1.3); Gamma 0.8 g/dL (0.4-1.8); Globulin, Total 2.8 g/dL (2.2-3.9); M-Spike Not Observed g/dL (Not Observed)
--- NOTE | 2020-07-11 15:10 | PDOC.NEPPN ---
- Subjective Encounter Date: 07/11/20 Subjective: No new problem. Edema is slightly better. - Objective Vital Signs & Weight: Vital Signs (12 hours) Temp Pulse Resp BP BP Pulse Ox 07/11/20 11:55 97.8 F 71 16 119/60 98 07/11/20 09:27 71 131/63 07/11/20 08:10 97.9 F 70 16 120/64 99 Weight Admit Weight 173 lb 8 oz Weight 175 lb 12.8 oz I&O: 07/10/20 07/11/20 07/12/20 06:59 06:59 06:59 Intake Total 700 Output Total 450 Balance 250 Result Diagrams: 07/11/20 04:45 07/11/20 04:45 Additional Labs: Accuchecks 07/11/20 07/10/20 07/10/20 05:44 20:38 16:41 POC Glucose 154 H 168 H 133 H Nephrology ROS - Medication Medications: Active Medications Generic Name Dose Route Start Last Admin Trade Name Freq PRN Reason Stop Dose Admin Acetaminophen 650 mg 07/09/20 03:22 07/11/20 09:26 Acetaminophen 325 Mg Tab PO 650 mg Q4H PRN Administration Headache/Fever/Mild Pain (1-3) Atorvastatin Calcium 40 mg 07/09/20 21:00 07/10/20 20:55 Atorvastatin Calcium 40 Mg Tab PO 40 mg HS CHARLY Administration Famotidine 20 mg 07/09/20 09:00 07/11/20 09:33 Famotidine 20 Mg Tab PO 20 mg DAILY CHARLY Administration Ferrous Sulfate 325 mg 07/09/20 09:00 07/11/20 09:33 Ferrous Sulfate 325 Mg Tab PO 325 mg BID CHARLY Administration Insulin Human Lispro 0 units 07/09/20 04:12 07/11/20 05:51 Humalog 300 Units/3 Ml Vial SC 2 unit .MILD SLIDING SCALE PRN Administration Mild Correctional Scale Labetalol HCl 100 mg 07/11/20 09:00 07/11/20 09:32 Labetalol 100 Mg Tab PO 100 mg BID CHARLY Administration Multivitamins 1 tab 07/09/20 09:00 07/11/20 09:33 Multivit, Therapeutic 1 Tab PO 1 tab DAILY CHARLY Administration Nifedipine 60 mg 07/10/20 21:00 07/11/20 09:27 Nifedipine Xl 60 Mg Tab PO 60 mg BID CHARLY Administration Sodium Bicarbonate 1,300 mg 07/11/20 09:00 07/11/20 09:32 Sodium Bicarbonate Tab 325 Mg Tab PO 1,300 mg TID CHARLY Administration Sodium Chloride 10 ml 07/09/20 03:22 07/11/20 09:26 Flush - Normal Saline 10 Ml Syringe IVF 10 ml Q12HR PRN Administration Saline Flush - Exam General Appearance: awake alert Eye: anicteric sclera Neck: supple Respiratory - other findings: fair air entry bilaterally with no obvious crackles Cardiovascular: RRR Gastrointestinal: non-tender, non-distended, normal bowel sounds Gastrointestinal - other findings: obese Extremities: 2+ LE edema Neurological: CN's grossly intact, no focal deficits PSYCH: A&O x 3 Nephrology Results - Labs Result Diagrams: 07/11/20 04:45 07/11/20 04:45 Lab results: WBC 10.6 thou/uL (4.8-10.8) 07/11/20 04:45 Hgb 8.6 g/dL (12.0-16.0) L 07/11/20 04:45 Hct 28.1 % (36.0-47.0) L 07/11/20 04:45 MCV 92.7 fL (78.0-98.0) 07/11/20 04:45 Plt Count 198 thou/uL (130-400) 07/11/20 04:45 Neutrophils % 79.1 % (42.0-75.0) H 07/11/20 04:45 ESR Westergren 22 mm/hr (Less than 30) 07/09/20 09:11 Sodium 141 mmol/L (136-145) 07/11/20 04:45 Potassium 4.6 mmol/L (3.5-5.1) 07/11/20 04:45 Chloride 110 mmol/L (98-107) H 07/11/20 04:45 Carbon Dioxide 18 mmol/L (22-29) L 07/11/20 04:45 BUN 57 mg/dL (9.8-20.1) H 07/11/20 04:45 Creatinine 7.25 mg/dL (0.6-1.1) H 07/11/20 04:45 Glucose 161 mg/dL (70-105) H 07/11/20 04:45 Calcium 7.8 mg/dL (7.8-10.44) 07/11/20 04:45 Total Bilirubin 0.3 mg/dL (0.2-1.2) 07/08/20 20:09 AST 14 U/L (5-34) 07/08/20 20:09 ALT Less than 7 U/L (8-55) L 07/08/20 20:09 Alkaline Phosphatase 75 U/L (40-110) 07/08/20 20:09 Creatine Kinase 118 U/L (29-168) 07/08/20 20:09 Troponin I 0.022 ng/mL (< 0.028) 07/09/20 02:06 C-Reactive Protein 0.67 mg/dL (= or < 0.5) H 07/09/20 10:07 B-Natriuretic Peptide 1045.7 pg/mL (0-100) H 07/08/20 20:09 Serum Total Protein 6.1 g/dL (6.0-8.3) 07/08/20 20:09 Albumin 3.4 g/dL (3.5-5.0) L 07/11/20 04:45 Lipase 83 U/L (8-78) H 07/08/20 20:09 Urine Ketones Negative mg/dL (Negative) 07/08/20 20:58 Urine Blood 1+ (Negative) A 07/08/20 20:58 Urine Nitrite Negative (Negative) 07/08/20 20:58 Ur Leukocyte Esterase Negative Ananya/uL (Negative) 07/08/20 20:58 Urine RBC 0-3 HPF (0-3) 07/08/20 20:58 Urine WBC 0-3 HPF (0-3) 07/08/20 20:58 Ur Squamous Epith Cells 0-3 HPF (0-3) 07/08/20 20:58 Urine Bacteria Rare-Few HPF (None Seen) 07/08/20 20:58 Sodium 141 mmol/L (136-145) 07/11/20 04:45 Potassium 4.6 mmol/L (3.5-5.1) 07/11/20 04:45 Chloride 110 mmol/L (98-107) H 07/11/20 04:45 Carbon Dioxide 18 mmol/L (22-29) L 07/11/20 04:45 Anion Gap 18 mmol/L (10-20) 07/11/20 04:45 BUN 57 mg/dL (9.8-20.1) H 07/11/20 04:45 Creatinine 7.25 mg/dL (0.6-1.1) H 07/11/20 04:45 Glucose 161 mg/dL (70-105) H 07/11/20 04:45 Calcium 7.8 mg/dL (7.8-10.44) 07/11/20 04:45 Phosphorus 2.9 mg/dL (2.3-4.7) 07/11/20 04:45 Magnesium 1.6 mg/dL (1.6-2.6) 07/11/20 04:45 Albumin 3.4 g/dL (3.5-5.0) L 07/11/20 04:45 Nephrology AP PN - Plan ASSESSMENT: Acute kidney injury: Etiology is unclear. The patient had baseline chronic kidney disease stage 3. Acute worsening most likely is related to hemodynamic factor due to volume depletion in a patient taking losartan. Progression of chronic kidney disease is another concern. BUN/Creat are worse with diuretic.. Chronic kidney disease, stage 3: Etiology is unclear. Unlikely DM nephropathy as she was diagnosed of diabetes for about 2 years ago and generalized swelling that predated that, Glomerulonephritis and or nephrosis is a concern. Review of medical records showed the patient had significant proteinuria in 2017. Nephrotic range proteinuria concerning for nephrotic syndrome. Nephrotic range Proteinuria Diabetes mellitus, on treatment. Hypertension, on treatment. Obesity. Hyperkalemia: Most likely due to acute kidney injury and use of losartan. Resolved Metabolic acidosis. Anemia of chronic kidney disease/chronic illness. HTN: Control is suboptimal. PLAN DC Diuretics due to worsening azotemia Substitute nevibilol with labetalol and increase amlodipine to 60 bid to get adequate BP control. Continue alkali therapy monitor I/O and renal function Await ordered diagnostics tests including 24 hour urine protein as well as SPEP/UPEP. Renal biopsy planned. patient took ASA on 07/07/2020.
[2020-07-11] MEDS: Atorvastatin Calcium 40 MG TAB PO SCH (22:26)
[2020-07-12 04:37] LABS: #Basophils 0.1 thou/uL (0.0-0.2); #Eosinphils 0.5 thou/uL (0.0-0.7); #Lymphocytes 1.3 thou/uL (1.20-3.40); #Monocytes 0.5 thou/uL (0.11-0.59); #Neutrophils 7.2 thou/uL (1.40-6.50); %Basophils 0.8 % (0.0-1.0); %Eosinophils 4.8 % (0.0-10.0); %Lymphocytes 13.4 % (21.0-51.0); Mean Corpuscular HGB CONC 33.6 g/dL (32.0-36.0); Mean Corpuscular Hemoglobin 31.1 pg (27.0-31.0); Mean Corpuscular Volume 92.6 fL (78.0-98.0); Mean Platelet Volume 9.2 fL (7.4-10.4); Platelet Count 266 thou/uL (130-400); RBC Distribution Width 13.8 % (11.5-14.5); Red Blood Cell (RBC) Count 2.26 mill/uL (4.20-5.40); White Blood Cell (WBC) Count 9.5 thou/uL (4.8-10.8)
[2020-07-12 05:12] LABS: Albumin 3.1 g/dL (3.5-5.0); Anion Gap 15 mmol/L (10-20); BUN (Urea Nitrogen) 61 mg/dL (9.8-20.1); BUN/Creatinine Ratio 8.14; Calc. Creatinine Clearance 11 mL/min (70-130); Calcium 7.6 mg/dL (7.8-10.44); Carbon Dioxide 22 mmol/L (22-29); Chloride 108 mmol/L (98-107); Glucose 121 mg/dL (70-105); Magnesium 1.7 mg/dL (1.6-2.6); Phosphorus 3.6 mg/dL (2.3-4.7); Potassium 3.9 mmol/L (3.5-5.1); Sodium 141 mmol/L (136-145)
[2020-07-12 08:02] LABS: PTT 30.3 sec (22.9-36.1); Prothrombin Time 13.1 sec (12.0-14.7)
[2020-07-12] MEDS: Multivit, Therapeutic 1 TAB PO SCH (09:45)
[2020-07-12] MEDS: NIFEdipine XL 60 MG TAB PO SCH ×2 (09:45→20:45)
[2020-07-12] MEDS: Ferrous Sulfate 325 MG TAB PO SCH ×2 (09:45→20:45)
[2020-07-12] MEDS: Sodium Bicarbonate Tab 325 MG TAB PO SCH ×3 (09:47→20:45)
[2020-07-12] MEDS: Labetalol 100 MG TAB PO SCH ×2 (09:48→20:45)
[2020-07-12] MEDS: Famotidine 20 MG TAB PO SCH (09:48)
[2020-07-12] MEDS ORDERED: Sodium Bicarbonate 2.5 MEQ/5 ML VIAL ONE (10:21)
[2020-07-12] MEDS ORDERED: Fentanyl 100 MCG/2 ML VIAL ONE (10:21)
[2020-07-12 11:37] LABS: Albumin, PEP 24hr Ur 60.4 % (NOT ESTAB.); Alpha-1-Globulin, PEP 24h Ur 8.5 % (NOT ESTAB.); Alpha-2-Globulin, PEP 24h Ur 6.6 % (NOT ESTAB.); Beta Globulin, PEP 24h Ur 12.9 % (NOT ESTAB.); Gamma Globulin, PEP 24h Ur 11.6 % (NOT ESTAB.); M-Spike,% PEP 24hr Ur Not Observed % (Not Observed); Protein, PEP 24hr calculated 10839 mg/24 hr (30-150); Protein, Urine 1667.6 mg/dL (Not Estab.)
--- NOTE | 2020-07-12 11:46 | PDOC.NEPPN ---
- Subjective Encounter Date: 07/12/20 Subjective: Seen and examined. No new problem edema of the extremities persists. No SOB. - Objective Vital Signs & Weight: Vital Signs (12 hours) Temp Pulse Resp BP BP Pulse Ox 07/12/20 09:45 79 135/66 07/12/20 07:35 98.8 F 83 16 162/73 H 95 07/12/20 04:00 97.6 F 72 17 120/65 07/12/20 00:00 98.3 F 77 18 168/77 H 98 Weight Admit Weight 173 lb 8 oz Weight 175 lb 13.098 oz I&O: 07/11/20 07/12/20 07/13/20 06:59 06:59 06:59 Intake Total 700 1075 Output Total 450 750 Balance 250 325 Result Diagrams: 07/12/20 04:17 07/12/20 04:17 Additional Labs: Accuchecks 07/12/20 07/11/20 07/11/20 05:27 22:12 16:38 POC Glucose 112 H 137 H 180 H 07/11/20 11:23 POC Glucose 129 H Nephrology ROS - Medication Medications: Active Medications Generic Name Dose Route Start Last Admin Trade Name Freq PRN Reason Stop Dose Admin Acetaminophen 650 mg 07/09/20 03:22 07/11/20 22:24 Acetaminophen 325 Mg Tab PO 650 mg Q4H PRN Administration Headache/Fever/Mild Pain (1-3) Atorvastatin Calcium 40 mg 07/09/20 21:00 07/11/20 22:26 Atorvastatin Calcium 40 Mg Tab PO 40 mg HS CHARLY Administration Famotidine 20 mg 07/09/20 09:00 07/12/20 09:48 Famotidine 20 Mg Tab PO 20 mg DAILY CHARLY Administration Ferrous Sulfate 325 mg 07/09/20 09:00 07/12/20 09:45 Ferrous Sulfate 325 Mg Tab PO 325 mg BID CHARLY Administration Insulin Human Lispro 0 units 07/09/20 04:12 07/11/20 17:55 Humalog 300 Units/3 Ml Vial SC 2 unit .MILD SLIDING SCALE PRN Administration Mild Correctional Scale Labetalol HCl 100 mg 07/11/20 09:00 07/12/20 09:48 Labetalol 100 Mg Tab PO 100 mg BID CHARLY Administration Multivitamins 1 tab 07/09/20 09:00 07/12/20 09:45 Multivit, Therapeutic 1 Tab PO 1 tab DAILY CHARLY Administration Nifedipine 60 mg 07/10/20 21:00 07/12/20 09:45 Nifedipine Xl 60 Mg Tab PO 60 mg BID CHARLY Administration Sodium Bicarbonate 1,300 mg 07/11/20 09:00 07/12/20 09:47 Sodium Bicarbonate Tab 325 Mg Tab PO 1,300 mg TID CHARLY Administration Sodium Chloride 10 ml 07/09/20 03:22 07/11/20 09:26 Flush - Normal Saline 10 Ml Syringe IVF 10 ml Q12HR PRN Administration Saline Flush - Exam General Appearance: awake alert Eye: anicteric sclera ENT: normocephalic atraumatic, moist mucosa Neck: symmetric, no JVD Respiratory: CTAB, no wheezes, no rales, no ronchi, normal chest expansion Cardiovascular: RRR Gastrointestinal: soft, non-tender, non-distended, normal bowel sounds Extremities: 2+ LE edema Neurological: CN's grossly intact, no focal deficits PSYCH: A&O x 3 Nephrology Results - Labs Result Diagrams: 07/12/20 04:17 07/12/20 04:17 Lab results: WBC 9.5 thou/uL (4.8-10.8) 07/12/20 04:17 Hgb 7.0 g/dL (12.0-16.0) L 07/12/20 04:17 Hct 20.9 % (36.0-47.0) L 07/12/20 04:17 MCV 92.6 fL (78.0-98.0) 07/12/20 04:17 Plt Count 266 thou/uL (130-400) 07/12/20 04:17 Neutrophils % 76.0 % (42.0-75.0) H 07/12/20 04:17 ESR Westergren 22 mm/hr (Less than 30) 07/09/20 09:11 Sodium 141 mmol/L (136-145) 07/12/20 04:17 Potassium 3.9 mmol/L (3.5-5.1) 07/12/20 04:17 Chloride 108 mmol/L (98-107) H 07/12/20 04:17 Carbon Dioxide 22 mmol/L (22-29) 07/12/20 04:17 BUN 61 mg/dL (9.8-20.1) H 07/12/20 04:17 Creatinine 7.49 mg/dL (0.6-1.1) H 07/12/20 04:17 Glucose 121 mg/dL (70-105) H 07/12/20 04:17 Calcium 7.6 mg/dL (7.8-10.44) L 07/12/20 04:17 Total Bilirubin 0.3 mg/dL (0.2-1.2) 07/08/20 20:09 AST 14 U/L (5-34) 07/08/20 20:09 ALT Less than 7 U/L (8-55) L 07/08/20 20:09 Alkaline Phosphatase 75 U/L (40-110) 07/08/20 20:09 Creatine Kinase 118 U/L (29-168) 07/08/20 20:09 Troponin I 0.022 ng/mL (< 0.028) 07/09/20 02:06 C-Reactive Protein 0.67 mg/dL (= or < 0.5) H 07/09/20 10:07 B-Natriuretic Peptide 1045.7 pg/mL (0-100) H 07/08/20 20:09 Serum Total Protein 6.1 g/dL (6.0-8.3) 07/08/20 20:09 Albumin 3.1 g/dL (3.5-5.0) L 07/12/20 04:17 Lipase 83 U/L (8-78) H 07/08/20 20:09 Urine Ketones Negative mg/dL (Negative) 07/08/20 20:58 Urine Blood 1+ (Negative) A 07/08/20 20:58 Urine Nitrite Negative (Negative) 07/08/20 20:58 Ur Leukocyte Esterase Negative Ananya/uL (Negative) 07/08/20 20:58 Urine RBC 0-3 HPF (0-3) 07/08/20 20:58 Urine WBC 0-3 HPF (0-3) 07/08/20 20:58 Ur Squamous Epith Cells 0-3 HPF (0-3) 07/08/20 20:58 Urine Bacteria Rare-Few HPF (None Seen) 07/08/20 20:58 Sodium 141 mmol/L (136-145) 07/12/20 04:17 Potassium 3.9 mmol/L (3.5-5.1) 07/12/20 04:17 Chloride 108 mmol/L (98-107) H 07/12/20 04:17 Carbon Dioxide 22 mmol/L (22-29) 07/12/20 04:17 Anion Gap 15 mmol/L (10-20) 07/12/20 04:17 BUN 61 mg/dL (9.8-20.1) H 07/12/20 04:17 Creatinine 7.49 mg/dL (0.6-1.1) H 07/12/20 04:17 Glucose 121 mg/dL (70-105) H 07/12/20 04:17 Calcium 7.6 mg/dL (7.8-10.44) L 07/12/20 04:17 Phosphorus 3.6 mg/dL (2.3-4.7) 07/12/20 04:17 Magnesium 1.7 mg/dL (1.6-2.6) 07/12/20 04:17 Albumin 3.1 g/dL (3.5-5.0) L 07/12/20 04:17 Nephrology AP PN - Plan ASSESSMENT: Acute kidney injury: Etiology is unclear. The patient had baseline chronic kidney disease stage 3. Acute worsening most likely is related to hemodynamic factor due to volume depletion in a patient taking losartan. Progression of chronic kidney disease is another concern. FLC, UPEP/SPEP are non diagnostic as well as SURYA. Chronic kidney disease, stage 3: Etiology is unclear. Unlikely DM nephropathy as she was diagnosed of diabetes for about 2 years ago and generalized swelling that predated that, Glomerulonephritis and or nephrosis is a concern. Review of medical records showed the patient had significant proteinuria in 2017. Nephrotic range proteinuria concerning for nephrotic syndrome. Nephrotic range Proteinuria Diabetes mellitus, on treatment. Hypertension, on treatment. Obesity. Hyperkalemia: Most likely due to acute kidney injury and use of losartan. Resolved Metabolic acidosis. Anemia of chronic kidney disease/chronic illness. HTN: Control is suboptimal. PLAN Get CT guided renal biopsy since its now 5 days since last ASA. Restart diuretic therapy with spironolactone and torsemide Continue labetalol and amlodipine Continue alkali therapy monitor I/O and renal function.
--- NOTE | 2020-07-12 11:55 | CT ---
Renal biopsy CT-guided random HISTORY: Nephrotic syndrome. FINDINGS: After explaining the procedure and answering all questions, limited CT imaging of the kidne ys was performed. Sterile technique, buffered local anesthesia, CT guidance, and a posterior approach were used to care fully advance a 17-gauge trocar needle to the posterior cortex of the hypovascular zone near the inferior pole of the right kidney. Needle was carefully engaged into the renal cortex. Please note th at the direction of the needle at imaging is towards the center of the kidney. At the time of the 3 18-gauge core biopsies, the needle was deflected laterally to obtain glomeruli and direct the biopsy away from the central vasculature. Specimen adequacy was confirmed by Dr. Echevarria from pathology. A total of 3 small pledgets of [place] w ere carefully instilled through the trocar needle and secured into place with the stylette. Needle was removed. Postprocedure imaging shows no evidence of complication. Patient tolerated the procedure well and was returned in unchanged condition. IMPRESSION : Technical successful CT-guided random renal biopsy. Pathology is pending.
[2020-07-12] MEDS: HumaLOG 300 UNITS/3 ML VIAL SC PRN (17:39)
[2020-07-12] MEDS: Atorvastatin Calcium 40 MG TAB PO SCH (20:45)
--- NOTE | 2020-07-12 21:07 | PDOC.HOSPP ---
- Subjective Encounter Date: 07/12/20 Encounter Time: 14:00 Subjective: patient returned from renal biopsy, no issues, feeling about the same, minimal urination, no chest pain or shortness of breath. - Objective Vital Signs & Weight: Vital Signs (12 hours) Temp Pulse Resp BP BP Pulse Ox 07/12/20 20:00 98.2 F 80 14 146/69 H 95 07/12/20 15:55 98.6 F 83 16 117/59 L 98 07/12/20 11:45 97.8 F 80 16 149/68 H 96 07/12/20 09:45 79 135/66 Weight Admit Weight 173 lb 8 oz Weight 175 lb 13.098 oz I&O: 07/11/20 07/12/20 07/13/20 06:59 06:59 06:59 Intake Total 700 1075 1200 Output Total 450 750 400 Balance 250 325 800 Result Diagrams: 07/12/20 04:17 07/12/20 04:17 Additional Labs: Accuchecks 07/12/20 07/12/20 07/12/20 16:47 14:04 05:27 POC Glucose 172 H 170 H 112 H 07/11/20 07/11/20 22:12 11:23 POC Glucose 137 H 129 H Radiology Reviewed by me: Yes Hospitalist ROS - Medication Medications: Active Medications Generic Name Dose Route Start Last Admin Trade Name Freq PRN Reason Stop Dose Admin Acetaminophen 650 mg 07/09/20 03:22 07/11/20 22:24 Acetaminophen 325 Mg Tab PO 650 mg Q4H PRN Administration Headache/Fever/Mild Pain (1-3) Atorvastatin Calcium 40 mg 07/09/20 21:00 07/12/20 20:45 Atorvastatin Calcium 40 Mg Tab PO 40 mg HS CHARLY Administration Famotidine 20 mg 07/09/20 09:00 07/12/20 09:48 Famotidine 20 Mg Tab PO 20 mg DAILY CHARLY Administration Ferrous Sulfate 325 mg 07/09/20 09:00 07/12/20 20:45 Ferrous Sulfate 325 Mg Tab PO 325 mg BID CHARLY Administration Insulin Human Lispro 0 units 07/09/20 04:12 07/12/20 17:39 Humalog 300 Units/3 Ml Vial SC 2 unit .MILD SLIDING SCALE PRN Administration Mild Correctional Scale Labetalol HCl 100 mg 07/11/20 09:00 07/12/20 20:45 Labetalol 100 Mg Tab PO 100 mg BID CHARLY Administration Multivitamins 1 tab 07/09/20 09:00 07/12/20 09:45 Multivit, Therapeutic 1 Tab PO 1 tab DAILY CHARLY Administration Nifedipine 60 mg 07/10/20 21:00 07/12/20 20:45 Nifedipine Xl 60 Mg Tab PO 60 mg BID CHARLY Administration Sodium Bicarbonate 1,300 mg 07/11/20 09:00 07/12/20 20:45 Sodium Bicarbonate Tab 325 Mg Tab PO 1,300 mg TID CHARLY Administration Sodium Chloride 10 ml 07/09/20 03:22 07/11/20 09:26 Flush - Normal Saline 10 Ml Syringe IVF 10 ml Q12HR PRN Administration Saline Flush - Exam General Appearance: NAD, awake alert Eye: PERRL, anicteric sclera ENT: normocephalic atraumatic, no oropharyngeal lesions, moist mucosa Neck: supple, symmetric, no JVD, no thyromegaly, no lymphadenopathy, no carotid bruit Heart: RRR, no murmur, no gallops, no rubs, normal peripheral pulses Respiratory: CTAB, no wheezes, no rales, no ronchi, normal chest expansion, no tachypnea, normal percussion Gastrointestinal: soft, non-tender, non-distended, normal bowel sounds, no palpable masses, no hepatomegaly, no splenomegaly, no bruit Extremities: no cyanosis, no clubbing, no edema Skin: normal turgor, no lesions, no rashes Neurological: cranial nerve grossly intact, normal sensation to touch, no weakness, no focal deficits, no new deficit Musculoskeletal: normal tone, normal strength, no muscle wasting Psychiatric: normal affect, normal behavior, A&O x 3 Hosp A/P (1) Extremity edema Code(s): R60.0 - LOCALIZED EDEMA Status: Acute (2) Generalized weakness Code(s): R53.1 - WEAKNESS Status: Acute (3) [id number] kidney injury Code(s): N17.9 - ACUTE KIDNEY FAILURE, UNSPECIFIED; N18.9 - CHRONIC KIDNEY DISEASE, UNSPECIFIED Status: Acute (4) DM type 2 (diabetes mellitus, type 2) Status: Chronic Qualifiers: Diabetes mellitus snf insulin use: without snf use Diabetes mellitus complication status: with unspecified complications (5) HTN (hypertension) Code(s): I10 - ESSENTIAL (PRIMARY) HYPERTENSION Status: Chronic Qualifiers: Hypertension type: essential hypertension Qualified Code(s): I10 - Essential (primary) hypertension - Plan # acute renal failure - with uremia and acidosis - appreciate nephrology consultation - 24 hour urine collection underway, renal biopsy this admission - labs reviewed, proteinuria noted, no real significant positive diagnostic te sts so far, SURYA/dsdna negative, stool culture w no HUS/e coli. - avoid nephrotoxic medications # nausea, vomiting, diarrhea - improved, perhaps due to uremia # anasarca - likely due to renal failure, improved today No crackles or evidence of pulmonary edema on exam Extremity edema noted with elevated BNP Hold lasix for now given renal function and no evidence of fluid in lungs Appreciate nephrology input Continue cardiac monitoring Venous doppler of both lower legs -> no DVT noted Repeat Echo - s/p renal biopsy 07/12 - appreciate nephrology assistance # weakness - generalized PT/OT consulted No neuro deficits on exam # chronic anemia Iron studies ordered Monitor H/H No transfusion indicated at this time # t2dm Monitor glucose ([facility]) Initiated sliding scale # HTN Monitor BP resume home medications once verified GI Prophylaxis with Famotidine DVT Prophylaxis with heparin CODE STATUS FULL dispo: home once workup complete. no need for telemetry anymore, k appears normalized
[2020-07-13 06:30] LABS: #Basophils 0.1 thou/uL (0.0-0.2); #Eosinphils 0.4 thou/uL (0.0-0.7); #Monocytes 0.7 thou/uL (0.11-0.59); #Neutrophils 7.1 thou/uL (1.40-6.50); %Basophils 0.7 % (0.0-1.0); %Eosinophils 4.5 % (0.0-10.0); %Lymphocytes 10.9 % (21.0-51.0); %Neutrophils 75.9 % (42.0-75.0); Hemoglobin 6.7 g/dL (12.0-16.0); Mean Corpuscular HGB CONC 32.9 g/dL (32.0-36.0); Mean Corpuscular Hemoglobin 30.8 pg (27.0-31.0); Mean Corpuscular Volume 93.7 fL (78.0-98.0); Mean Platelet Volume 9.5 fL (7.4-10.4); Platelet Count 231 thou/uL (130-400); Red Blood Cell (RBC) Count 2.19 mill/uL (4.20-5.40); White Blood Cell (WBC) Count 9.3 thou/uL (4.8-10.8)
[2020-07-13] MEDS: Labetalol 100 MG TAB PO SCH ×2 (08:37→20:22)
[2020-07-13] MEDS: NIFEdipine XL 60 MG TAB PO SCH ×2 (08:37→20:22)
[2020-07-13] MEDS: Sodium Bicarbonate Tab 325 MG TAB PO SCH ×3 (08:37→20:22)
[2020-07-13] MEDS: Ferrous Sulfate 325 MG TAB PO SCH ×2 (08:37→20:22)
[2020-07-13] MEDS: Multivit, Therapeutic 1 TAB PO SCH (08:37)
[2020-07-13] MEDS: Famotidine 20 MG TAB PO SCH (08:37)
[2020-07-13] MEDS ORDERED: Spironolactone 25 MG TAB PO SCH (11:15)
[2020-07-13] MEDS ORDERED: Torsemide 20 MG TAB PO SCH (11:15)
[2020-07-13] MEDS: HumaLOG 300 UNITS/3 ML VIAL SC PRN (11:54)
[2020-07-13 12:18] LABS: Albumin 2.9 g/dL (3.5-5.0); Anion Gap 16 mmol/L (10-20); BUN (Urea Nitrogen) 65 mg/dL (9.8-20.1); BUN/Creatinine Ratio 8.15; Calc. Creatinine Clearance 11 mL/min (70-130); Calcium 7.6 mg/dL (7.8-10.44); Carbon Dioxide 20 mmol/L (22-29); Chloride 107 mmol/L (98-107); Glucose 144 mg/dL (70-105); Phosphorus 4.5 mg/dL (2.3-4.7); Potassium 3.9 mmol/L (3.5-5.1); Sodium 139 mmol/L (136-145)
--- NOTE | 2020-07-13 14:44 | PDOC.NEPPN ---
- Subjective Encounter Date: 07/13/20 Subjective: Seen in follow up for JOSE LUIS on CKD and anasarca. Had renal biopsy yesterday 07/12/2020. Still swollen. No SOB - Objective Vital Signs & Weight: Vital Signs (12 hours) Temp Pulse Resp BP Pulse Ox 07/13/20 11:54 98.1 F 77 17 115/56 L 99 07/13/20 07:50 98.6 F 86 16 121/57 L 98 07/13/20 04:00 98.9 F 84 14 156/70 H 96 Weight Admit Weight 173 lb 8 oz Weight 180 lb 3.2 oz I&O: 07/12/20 07/13/20 07/14/20 06:59 06:59 06:59 Intake Total 1075 1450 Output Total 750 500 Balance 325 950 Result Diagrams: 07/13/20 06:10 07/13/20 06:10 Additional Labs: Accuchecks 07/13/20 07/13/20 07/12/20 10:50 05:49 21:09 POC Glucose 162 H 135 H 136 H 07/12/20 16:47 POC Glucose 172 H Nephrology ROS - Medication Medications: Active Medications Generic Name Dose Route Start Last Admin Trade Name Freq PRN Reason Stop Dose Admin Acetaminophen 650 mg 07/09/20 03:22 07/11/20 22:24 Acetaminophen 325 Mg Tab PO 650 mg Q4H PRN Administration Headache/Fever/Mild Pain (1-3) Atorvastatin Calcium 40 mg 07/09/20 21:00 07/12/20 20:45 Atorvastatin Calcium 40 Mg Tab PO 40 mg HS CHARLY Administration Famotidine 20 mg 07/09/20 09:00 07/13/20 08:37 Famotidine 20 Mg Tab PO 20 mg DAILY CHARLY Administration Ferrous Sulfate 325 mg 07/09/20 09:00 07/13/20 08:37 Ferrous Sulfate 325 Mg Tab PO 325 mg BID CHARLY Administration Insulin Human Lispro 0 units 07/09/20 04:12 07/13/20 11:54 Humalog 300 Units/3 Ml Vial SC 2 unit .MILD SLIDING SCALE PRN Administration Mild Correctional Scale Labetalol HCl 100 mg 07/11/20 09:00 07/13/20 08:37 Labetalol 100 Mg Tab PO 100 mg BID CHARLY Administration Multivitamins 1 tab 07/09/20 09:00 07/13/20 08:37 Multivit, Therapeutic 1 Tab PO 1 tab DAILY CHARLY Administration Nifedipine 60 mg 07/10/20 21:00 07/13/20 08:37 Nifedipine Xl 60 Mg Tab PO 60 mg BID CHARLY Administration Sodium Bicarbonate 1,300 mg 07/11/20 09:00 07/13/20 08:37 Sodium Bicarbonate Tab 325 Mg Tab PO 1,300 mg TID CHARLY Administration Sodium Chloride 10 ml 07/09/20 03:22 07/11/20 09:26 Flush - Normal Saline 10 Ml Syringe IVF 10 ml Q12HR PRN Administration Saline Flush - Exam General Appearance: awake alert Eye: anicteric sclera ENT: normocephalic atraumatic, moist mucosa Neck: symmetric, no JVD Respiratory: no wheezes, no rales, no ronchi, normal chest expansion, no tachypnea Cardiovascular: RRR Gastrointestinal: soft, non-tender, normal bowel sounds Gastrointestinal - other findings: abdominal wall edema noted Extremities - other findings: edema of the extremities lower >>>upper Neurological: CN's grossly intact PSYCH: A&O x 3 Nephrology Results - Labs Result Diagrams: 07/13/20 06:10 07/13/20 06:10 Lab results: WBC 9.3 thou/uL (4.8-10.8) 07/13/20 06:10 Hgb 6.7 g/dL (12.0-16.0) L 07/13/20 06:10 Hct 20.5 % (36.0-47.0) L 07/13/20 06:10 MCV 93.7 fL (78.0-98.0) 07/13/20 06:10 Plt Count 231 thou/uL (130-400) 07/13/20 06:10 Neutrophils % 75.9 % (42.0-75.0) H 07/13/20 06:10 ESR Westergren 22 mm/hr (Less than 30) 07/09/20 09:11 Sodium 139 mmol/L (136-145) 07/13/20 06:10 Potassium 3.9 mmol/L (3.5-5.1) 07/13/20 06:10 Chloride 107 mmol/L (98-107) 07/13/20 06:10 Carbon Dioxide 20 mmol/L (22-29) L 07/13/20 06:10 BUN 65 mg/dL (9.8-20.1) H 07/13/20 06:10 Creatinine 7.98 mg/dL (0.6-1.1) H 07/13/20 06:10 Glucose 144 mg/dL (70-105) H 07/13/20 06:10 Calcium 7.6 mg/dL (7.8-10.44) L 07/13/20 06:10 Total Bilirubin 0.3 mg/dL (0.2-1.2) 07/08/20 20:09 AST 14 U/L (5-34) 07/08/20 20:09 ALT Less than 7 U/L (8-55) L 07/08/20 20:09 Alkaline Phosphatase 75 U/L (40-110) 07/08/20 20:09 Creatine Kinase 118 U/L (29-168) 07/08/20 20:09 Troponin I 0.022 ng/mL (< 0.028) 07/09/20 02:06 C-Reactive Protein 0.67 mg/dL (= or < 0.5) H 07/09/20 10:07 B-Natriuretic Peptide 1045.7 pg/mL (0-100) H 07/08/20 20:09 Serum Total Protein 6.1 g/dL (6.0-8.3) 07/08/20 20:09 Albumin 2.9 g/dL (3.5-5.0) L 07/13/20 06:10 Lipase 83 U/L (8-78) H 07/08/20 20:09 Urine Ketones Negative mg/dL (Negative) 07/08/20 20:58 Urine Blood 1+ (Negative) A 07/08/20 20:58 Urine Nitrite Negative (Negative) 07/08/20 20:58 Ur Leukocyte Esterase Negative Ananya/uL (Negative) 07/08/20 20:58 Urine RBC 0-3 HPF (0-3) 07/08/20 20:58 Urine WBC 0-3 HPF (0-3) 07/08/20 20:58 Ur Squamous Epith Cells 0-3 HPF (0-3) 07/08/20 20:58 Urine Bacteria Rare-Few HPF (None Seen) 07/08/20 20:58 Sodium 139 mmol/L (136-145) 07/13/20 06:10 Potassium 3.9 mmol/L (3.5-5.1) 07/13/20 06:10 Chloride 107 mmol/L (98-107) 07/13/20 06:10 Carbon Dioxide 20 mmol/L (22-29) L 07/13/20 06:10 Anion Gap 16 mmol/L (10-20) 07/13/20 06:10 BUN 65 mg/dL (9.8-20.1) H 07/13/20 06:10 Creatinine 7.98 mg/dL (0.6-1.1) H 07/13/20 06:10 Glucose 144 mg/dL (70-105) H 07/13/20 06:10 Calcium 7.6 mg/dL (7.8-10.44) L 07/13/20 06:10 Phosphorus 4.5 mg/dL (2.3-4.7) 07/13/20 06:10 Magnesium 1.7 mg/dL (1.6-2.6) 07/13/20 06:10 Albumin 2.9 g/dL (3.5-5.0) L 07/13/20 06:10 Nephrology AP PN - Plan ASSESSMENT: Acute kidney injury: Etiology is unclear. The patient had baseline chronic kidney disease stage 3. Acute worsening most likely is related to hemodynamic factor due to volume depletion in a patient taking losartan. Progression of chronic kidney disease is another concern. BUN/Creat are worse with diuretic.. Chronic kidney disease, stage 3: Etiology is unclear. Unlikely DM nephropathy as she was diagnosed of diabetes for about 2 years ago and generalized swelling that predated DM raising concern for Glomerulonephritis. Review of medical records showed the patient had significant proteinuria in 2017. Nephrotic range proteinuria concerning for nephrotic syndrome. Nephrotic range Proteinuria Diabetes mellitus, on treatment. Hypertension, on treatment. Obesity. Hyperkalemia: Most likely due to acute kidney injury and use of losartan. Resolved Metabolic acidosis. Anemia Due to anemia of chronic kidney disease/chronic illness andIron deficiency HTN: Control is adequate PLAN Restart diuretic therapy with torsemide and spironolactone. Continue labetalol and nifedipine for BP control Continue alkali therapy Start IV iron and NIESHA monitor I/O, H/H and renal function Awaitrenal biopsy report..
[2020-07-13] MEDS ORDERED: Iron, Sodium Ferric Gluconate 250 MG in Sodium Chloride 0.9% 100 ML IVPB SCH (14:45)
[2020-07-13] MEDS ORDERED: EPOETIN ALFA-EPBX (ESRD) 10,000 UNIT/ML VIAL SC SCH (15:00)
--- NOTE | 2020-07-13 16:17 | PDOC.HOSPP ---
- Subjective Encounter Date: 07/13/20 Encounter Time: 07:00 Subjective: patient had renal bx yesterday, reports continued oliguria, no chest pain or shortness of breath, no metallic taste in mouth, no fever/chills, no n/v/d. awaiting bx results. - Objective Vital Signs & Weight: Vital Signs (12 hours) Temp Pulse Resp BP Pulse Ox 07/13/20 11:54 98.1 F 77 17 115/56 L 99 07/13/20 07:50 98.6 F 86 16 121/57 L 98 Weight Admit Weight 173 lb 8 oz Weight 180 lb 3.2 oz I&O: 07/12/20 07/13/20 07/14/20 06:59 06:59 06:59 Intake Total 1075 1450 Output Total 750 500 Balance 325 950 Result Diagrams: 07/14/20 04:08 07/14/20 04:08 Additional Labs: Accuchecks 07/13/20 07/13/20 07/12/20 10:50 05:49 21:09 POC Glucose 162 H 135 H 136 H 07/12/20 16:47 POC Glucose 172 H Radiology Reviewed by me: Yes Hospitalist ROS - Medication Medications: Active Medications Generic Name Dose Route Start Last Admin Trade Name Freq PRN Reason Stop Dose Admin Acetaminophen 650 mg 07/09/20 03:22 07/11/20 22:24 Acetaminophen 325 Mg Tab PO 650 mg Q4H PRN Administration Headache/Fever/Mild Pain (1-3) Atorvastatin Calcium 40 mg 07/09/20 21:00 07/12/20 20:45 Atorvastatin Calcium 40 Mg Tab PO 40 mg HS CHARLY Administration Famotidine 20 mg 07/09/20 09:00 07/13/20 08:37 Famotidine 20 Mg Tab PO 20 mg DAILY CHARLY Administration Ferrous Sulfate 325 mg 07/09/20 09:00 07/13/20 08:37 Ferrous Sulfate 325 Mg Tab PO 325 mg BID CHARLY Administration Ferric Sodium Gluconate 120 mls @ 60 mls/hr 07/13/20 14:45 07/13/20 16:07 Complex 250 mg/ Sodium IVPB 07/13/20 16:44 120 mls Chloride NOW CHARLY Administration Insulin Human Lispro 0 units 07/09/20 04:12 07/13/20 11:54 Humalog 300 Units/3 Ml Vial SC 2 unit .MILD SLIDING SCALE PRN Administration Mild Correctional Scale Labetalol HCl 100 mg 07/11/20 09:00 07/13/20 08:37 Labetalol 100 Mg Tab PO 100 mg BID CHARLY Administration Multivitamins 1 tab 07/09/20 09:00 07/13/20 08:37 Multivit, Therapeutic 1 Tab PO 1 tab DAILY CHARLY Administration Nifedipine 60 mg 07/10/20 21:00 07/13/20 08:37 Nifedipine Xl 60 Mg Tab PO 60 mg BID CHARLY Administration Sodium Bicarbonate 1,300 mg 07/11/20 09:00 07/13/20 16:08 Sodium Bicarbonate Tab 325 Mg Tab PO 1,300 mg TID CHARLY Administration Sodium Chloride 10 ml 07/09/20 03:22 07/11/20 09:26 Flush - Normal Saline 10 Ml Syringe IVF 10 ml Q12HR PRN Administration Saline Flush - Exam General Appearance: NAD, awake alert Eye: PERRL, anicteric sclera ENT: normocephalic atraumatic, no oropharyngeal lesions, moist mucosa Neck: supple, symmetric, no JVD, no thyromegaly, no lymphadenopathy, no carotid bruit Heart: RRR, no murmur, no gallops, no rubs, normal peripheral pulses Respiratory: CTAB, no wheezes, no rales, no ronchi, normal chest expansion, no tachypnea, normal percussion Gastrointestinal: soft, non-tender, non-distended, normal bowel sounds, no palpable masses, no hepatomegaly, no splenomegaly, no bruit Extremities: no cyanosis, no clubbing, no edema Skin: normal turgor, no lesions, no rashes Neurological: cranial nerve grossly intact, normal sensation to touch, no weakness, no focal deficits, no new deficit Musculoskeletal: normal tone, normal strength, no muscle wasting Psychiatric: normal affect, normal behavior, A&O x 3 Hosp A/P (1) Extremity edema Code(s): R60.0 - LOCALIZED EDEMA Status: Acute (2) Generalized weakness Code(s): R53.1 - WEAKNESS Status: Acute (3) [id number] kidney injury Code(s): N17.9 - ACUTE KIDNEY FAILURE, UNSPECIFIED; N18.9 - CHRONIC KIDNEY DISEASE, UNSPECIFIED Status: Acute (4) DM type 2 (diabetes mellitus, type 2) Status: Chronic Qualifiers: 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 - avoid nephrotoxic medications # nausea, vomiting, diarrhea - improved, perhaps due to uremia # anasarca - likely due to renal failure, improved today No crackles or evidence of pulmonary edema on exam Extremity edema noted with elevated BNP Hold lasix for now given renal function and no evidence of fluid in lungs Appreciate nephrology input Continue cardiac monitoring Venous doppler of both lower legs -> no DVT noted Repeat Echo - s/p renal biopsy 07/12 - appreciate nephrology assistance # weakness - generalized PT/OT consulted No neuro deficits on exam # chronic anemia Iron studies ordered Monitor H/H No transfusion indicated at this time # t2dm Monitor glucose ([facility]) Initiated sliding scale # HTN Monitor BP resume home medications once verified GI Prophylaxis with Famotidine DVT Prophylaxis with heparin CODE STATUS FULL dispo: home once workup complete. no need for telemetry anymore, k appears normalized
[2020-07-13] MEDS: Acetaminophen 325 MG TAB PO PRN (20:21)
[2020-07-13] MEDS: Atorvastatin Calcium 40 MG TAB PO SCH (20:22)
[2020-07-14 05:07] LABS: Hemoglobin 6.5 g/dL (12.0-16.0)
[2020-07-14 05:20] LABS: Albumin 2.9 g/dL (3.5-5.0); Anion Gap 17 mmol/L (10-20); BUN (Urea Nitrogen) 64 mg/dL (9.8-20.1); Calc. Creatinine Clearance 10 mL/min (70-130); Calcium 7.6 mg/dL (7.8-10.44); Carbon Dioxide 21 mmol/L (22-29); Chloride 106 mmol/L (98-107); Glucose 115 mg/dL (70-105); Phosphorus 5.4 mg/dL (2.3-4.7); Potassium 3.7 mmol/L (3.5-5.1); Sodium 140 mmol/L (136-145)
[2020-07-14 05:47] VITALS: BMI 34.8
[2020-07-14] MEDS ORDERED: Iron, Sodium Ferric Gluconate 250 MG in Sodium Chloride 0.9% 100 ML IVPB SCH (07:30)
--- NOTE | 2020-07-14 07:50 | PDOC.NEPPN ---
- Subjective Encounter Date: 07/14/20 Subjective: Seen and examined. No new problem. Still with marked edema of the legs with tenderness. - Objective Vital Signs & Weight: Vital Signs (12 hours) Temp Pulse Resp BP Pulse Ox 07/14/20 07:32 97.9 F 80 16 133/61 98 07/14/20 04:00 98.6 F 83 142/67 H 94 L 07/13/20 20:22 80 07/13/20 20:13 97.7 F 80 16 164/74 H 97 Weight Admit Weight 173 lb 8 oz Weight 178 lb 8 oz I&O: 07/13/20 07/14/20 07/15/20 06:59 06:59 06:59 Intake Total 1450 1360 Output Total 500 1050 Balance 950 310 Result Diagrams: 07/14/20 04:08 07/14/20 04:08 Additional Labs: Accuchecks 07/14/20 07/13/20 07/13/20 06:33 21:35 16:44 POC Glucose 117 H 145 H 133 H 07/13/20 10:50 POC Glucose 162 H Nephrology ROS - Medication Medications: Active Medications Generic Name Dose Route Start Last Admin Trade Name Freq PRN Reason Stop Dose Admin Acetaminophen 650 mg 07/09/20 03:22 07/13/20 20:21 Acetaminophen 325 Mg Tab PO 650 mg Q4H PRN Administration Headache/Fever/Mild Pain (1-3) Atorvastatin Calcium 40 mg 07/09/20 21:00 07/13/20 20:22 Atorvastatin Calcium 40 Mg Tab PO 40 mg HS CHARLY Administration Epoetin Demetrio-epbx 10,000 unit 07/13/20 15:00 07/13/20 18:30 Epoetin Demetrio-Epbx (Esrd) 10,000 Unit/Ml Vial SC 10,000 unit Q7D CHARLY Administration Famotidine 20 mg 07/09/20 09:00 07/13/20 08:37 Famotidine 20 Mg Tab PO 20 mg DAILY CHARLY Administration Ferrous Sulfate 325 mg 07/09/20 09:00 07/13/20 20:22 Ferrous Sulfate 325 Mg Tab PO 325 mg BID CHARLY Administration Insulin Human Lispro 0 units 07/09/20 04:12 07/13/20 11:54 Humalog 300 Units/3 Ml Vial SC 2 unit .MILD SLIDING SCALE PRN Administration Mild Correctional Scale Labetalol HCl 100 mg 07/11/20 09:00 07/13/20 20:22 Labetalol 100 Mg Tab PO 100 mg BID CHARLY Administration Multivitamins 1 tab 07/09/20 09:00 07/13/20 08:37 Multivit, Therapeutic 1 Tab PO 1 tab DAILY CHARLY Administration Nifedipine 60 mg 07/10/20 21:00 07/13/20 20:22 Nifedipine Xl 60 Mg Tab PO 60 mg BID CHARLY Administration Sodium Bicarbonate 1,300 mg 07/11/20 09:00 07/13/20 20:22 Sodium Bicarbonate Tab 325 Mg Tab PO 1,300 mg TID CHARLY Administration Sodium Chloride 10 ml 07/09/20 03:22 07/13/20 20:21 Flush - Normal Saline 10 Ml Syringe IVF 10 ml Q12HR PRN Administration Saline Flush - Exam General Appearance: awake alert Eye: anicteric sclera ENT: normocephalic atraumatic, moist mucosa Neck: symmetric Respiratory: no wheezes, no ronchi, normal chest expansion, no tachypnea Cardiovascular: RRR Gastrointestinal: soft, non-distended, normal bowel sounds Gastrointestinal - other findings: abdominal wall edema noted Extremities - other findings: Marked edema of the lower extremities with tenderness noted Neurological: CN's grossly intact, no focal deficits PSYCH: A&O x 3 Nephrology Results - Labs Result Diagrams: 07/14/20 04:08 07/14/20 04:08 Lab results: WBC 9.3 thou/uL (4.8-10.8) 07/13/20 06:10 Hgb 6.5 g/dL (12.0-16.0) L 07/14/20 04:08 Hct 19.4 % (36.0-47.0) L 07/14/20 04:08 MCV 93.7 fL (78.0-98.0) 07/13/20 06:10 Plt Count 231 thou/uL (130-400) 07/13/20 06:10 Neutrophils % 75.9 % (42.0-75.0) H 07/13/20 06:10 ESR Westergren 22 mm/hr (Less than 30) 07/09/20 09:11 Sodium 140 mmol/L (136-145) 07/14/20 04:08 Potassium 3.7 mmol/L (3.5-5.1) 07/14/20 04:08 Chloride 106 mmol/L (98-107) 07/14/20 04:08 Carbon Dioxide 21 mmol/L (22-29) L 07/14/20 04:08 BUN 64 mg/dL (9.8-20.1) H 07/14/20 04:08 Creatinine 8.31 mg/dL (0.6-1.1) H 07/14/20 04:08 Glucose 115 mg/dL (70-105) H 07/14/20 04:08 Calcium 7.6 mg/dL (7.8-10.44) L 07/14/20 04:08 Total Bilirubin 0.3 mg/dL (0.2-1.2) 07/08/20 20:09 AST 14 U/L (5-34) 07/08/20 20:09 ALT Less than 7 U/L (8-55) L 07/08/20 20:09 Alkaline Phosphatase 75 U/L (40-110) 07/08/20 20:09 Creatine Kinase 118 U/L (29-168) 07/08/20 20:09 Troponin I 0.022 ng/mL (< 0.028) 07/09/20 02:06 C-Reactive Protein 0.67 mg/dL (= or < 0.5) H 07/09/20 10:07 B-Natriuretic Peptide 1045.7 pg/mL (0-100) H 07/08/20 20:09 Serum Total Protein 6.1 g/dL (6.0-8.3) 07/08/20 20:09 Albumin 2.9 g/dL (3.5-5.0) L 07/14/20 04:08 Lipase 83 U/L (8-78) H 07/08/20 20:09 Urine Ketones Negative mg/dL (Negative) 07/08/20 20:58 Urine Blood 1+ (Negative) A 07/08/20 20:58 Urine Nitrite Negative (Negative) 07/08/20 20:58 Ur Leukocyte Esterase Negative Ananya/uL (Negative) 07/08/20 20:58 Urine RBC 0-3 HPF (0-3) 07/08/20 20:58 Urine WBC 0-3 HPF (0-3) 07/08/20 20:58 Ur Squamous Epith Cells 0-3 HPF (0-3) 07/08/20 20:58 Urine Bacteria Rare-Few HPF (None Seen) 07/08/20 20:58 Sodium 140 mmol/L (136-145) 07/14/20 04:08 Potassium 3.7 mmol/L (3.5-5.1) 07/14/20 04:08 Chloride 106 mmol/L (98-107) 07/14/20 04:08 Carbon Dioxide 21 mmol/L (22-29) L 07/14/20 04:08 Anion Gap 17 mmol/L (10-20) 07/14/20 04:08 BUN 64 mg/dL (9.8-20.1) H 07/14/20 04:08 Creatinine 8.31 mg/dL (0.6-1.1) H 07/14/20 04:08 Glucose 115 mg/dL (70-105) H 07/14/20 04:08 Calcium 7.6 mg/dL (7.8-10.44) L 07/14/20 04:08 Phosphorus 5.4 mg/dL (2.3-4.7) H 07/14/20 04:08 Magnesium 1.7 mg/dL (1.6-2.6) 07/13/20 06:10 Albumin 2.9 g/dL (3.5-5.0) L 07/14/20 04:08 Nephrology AP PN - Plan ASSESSMENT: JOSE LUIS On CKD: Acute kidney injury due to acute tubular injury. 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 Diabetes mellitus, on treatment. Hypertension, on treatment. Obesity. Hyperkalemia: Most likely due to acute kidney injury and use of losartan. Resolved Metabolic acidosis. Anemia Due to anemia of chronic kidney disease/chronic illness andIron deficiency HTN: Control is adequate Discussion: Discussed renal biopsy report with patient and need for renal replacement therapy. We discussed dialytic options of PD and HD, Patient will like to do PD. However given marked anasarca we decided to start with HD to facilitate Volume magt and then transition to PD. We also talked about TDC and PD catheter placement and patient verbalized understanding and elected to proceed. PLAN Will transfuse PRBC. Increase diuretic therapy with torsemide and spironolactone. Continue labetalol and nifedipine for BP control Continue alkali therapy Continue IV iron and NIESHA Consult Gen Surgery for TDC and PD catheter placement monitor I/O, H/H and renal function
[2020-07-14] MEDS: Spironolactone 25 MG TAB PO SCH (08:50)
[2020-07-14] MEDS: Labetalol 100 MG TAB PO SCH ×2 (08:50→20:25)
[2020-07-14] MEDS: Famotidine 20 MG TAB PO SCH (08:50)
[2020-07-14] MEDS: Multivit, Therapeutic 1 TAB PO SCH (08:50)
[2020-07-14] MEDS: NIFEdipine XL 60 MG TAB PO SCH ×2 (08:50→20:23)
[2020-07-14] MEDS: Sodium Bicarbonate Tab 325 MG TAB PO SCH ×3 (08:50→20:24)
[2020-07-14] MEDS: Ferrous Sulfate 325 MG TAB PO SCH ×2 (08:50→20:24)
[2020-07-14] MEDS ORDERED: Torsemide 20 MG TAB PO SCH ×2 (09:00→14:00)
[2020-07-14] MEDS ORDERED: CEFAZOLIN 2 GM in Premix Bag 1 BAG IVPB SCH (11:30)
--- NOTE | 2020-07-14 12:18 | CON ---
DATE OF CONSULTATION: 07/14/2020 REASON FOR CONSULTATION: Need for dialysis access. HISTORY OF PRESENT ILLNESS: Ms. Smith is a 50-year-old woman who was admitted to the hospital last week for malaise, weakness, nausea, vomiting, and diarrhea. She was found to be in acute renal failure, which has not improved with medical management and her customer contact sales associate feels that she needs to start dialysis. She has significant anasarca due to her renal failure. She has chronic edema of the left leg due to a lymph node dissection and resection of melanoma on that side, but has never been this swollen before and her entire lower body is edematous. She does not have significant shortness of breath, and is on room air, saturating well. She reports that the nausea and vomiting got better after being admitted to the hospital. She has a known history of gallstones and thought it might be her gallbladder when she came in. However, she does not have any pain or nausea after eating in general. She has not had any fevers or chills and had never seen a customer contact sales associate prior to this hospitalization. She did undergo a renal biopsy a few days ago, which showed nodular diabetic glomerulosclerosis class 3, arterionephrosclerosis, and acute tubular injury. The patient has decided to proceed with peritoneal dialysis long-term, but her customer contact sales associate feels that she will require hemodialysis initially to treat her fluid overload and nephrotic syndrome. 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 The chart also mentions diastolic dysfunction CHF, with ejection fraction of 55% to 60%, hypertension, and chronic anemia. PAST SURGICAL HISTORY: An I and D for a Staph infection, wide excision of a malignant melanoma from the left leg with later left inguinal lymph node dissection by Dr. Adams. FAMILY HISTORY: Diabetes. ALLERGIES: SHE DENIES ANY DRUG ALLERGIES. MEDICATIONS: Outpatient medications include; 1. Losartan and hydrochlorothiazide. 2. Nifedipine. 3. Atorvastatin. 4. Potassium chloride. 5. Metformin. 6. Aspirin. 7. Multivitamin. Inpatient medications include; 1. Atorvastatin. 2. Epogen. 3. Pepcid. 4. IV iron. 5. Oral iron. 6. Sliding scale insulin. 7. Labetalol. 8. Multivitamin. 9. Nifedipine. 10. Sodium bicarbonate. 11. Spironolactone. 12. Torsemide. REVIEW OF SYSTEMS: Ten system review of systems is negative except per HPI. LABORATORY DATA: White count was initially elevated at 12.6, but has come down to 9.3. Initial hemoglobin was 9.1, which has drifted down to 6.5, and she is scheduled to be transfused today. Platelet count is normal at 231. Coags were normal on the . BUN and creatinine are 64 and 8.31. Electrolytes are unremarkable. COVID test was negative. CT of the abdomen and pelvis on showed anasarca with minimal free fluid, small bilateral pleural effusions, both decreased from previously; cholelithiasis, and no evidence of urolithiasis or obstruction of the kidney. PHYSICAL EXAMINATION: VITAL SIGNS: The patient has been afebrile through her hospital stay. Heart rate is 80, respirations 16, 98% saturated on room air, and blood pressure 133/61. GENERAL: Reveals a pleasant woman, in no acute distress. Breathing easily. HEENT: Unremarkable. NECK: Supple without lymphadenopathy or thyroid nodules. HEART: Regular in its rate and rhythm without murmurs, rubs, or gallops. LUNGS: Clear to auscultation bilaterally. She has significant edema, worse below the waist, worse on the left leg than the right leg. She has mild tenderness to palpation in the right lateral abdomen. No other focal tenderness. No palpable masses or hernias. NEUROLOGIC: No focal deficits. PSYCHIATRIC: Alert, oriented, and appropriate. EXTREMITIES: Severe edema in the lower extremities and moderate edema in bilateral upper extremities. Normal Aleks test bilaterally with good filling from both ulnar and radial arteries. No easily palpable cephalic or forearm veins bilaterally due to her edema. She is right handed. ASSESSMENT: End-stage renal failure with need for initiation of hemodialysis with ultimate transition to peritoneal dialysis. She also has gallstones, which may be symptomatic. She has opted to proceed with laparoscopic peritoneal dialysis catheter placement with laparoscopic cholecystectomy under the same anesthesia. She will also have a tunneled hemodialysis catheter placed under the same anesthesia. She currently has a right subclavian MediPort in place, but this has not been used in many years. I have asked the nurse to see if they can aspirate through this, in which case they can use it for her transfusion. If it does not aspirate, I would recommend removal since it is likely nonfunctional. The inherent risks of tunneled hemodialysis catheter placement were discussed. These include, but are not limited to, bleeding, infection, risks of anesthesia, hemothorax, pneumothorax, and need for other procedures. Inherent risks of laparoscopic cholecystectomy and laparoscopic peritoneal dialysis catheter were also discussed. These include, but are not limited to, bleeding, infection, risks of anesthesia, damage to nearby structures including bowel, liver, bile duct, and blood vessels, failure of the peritoneal dialysis catheter to function properly, and infection of the peritoneal dialysis catheter, which might require interruption of dialysis or removal of the catheter. Since she is right-handed and has had a subclavian MediPort in place for many years, if she does end up needing a fistula in the future, it would likely be placed on the left arm. I have asked the nurse not to place any further IVs or allow any lab draws on that side. She has a left cephalic IV in place currently and I am going to leave it since she has a very difficult stick. All of her questions were answered. Antibiotics have been ordered on-call to the OR tomorrow. Unfortunately, she had just eaten breakfast before I was consulted so cannot have her procedure today. Job ID: [id number] [facility]
--- NOTE | 2020-07-14 12:53 | PDOC.HOSPP ---
- Subjective Encounter Date: 07/14/20 Subjective: Patient was seen and examined in bed. She denied any new complaints. She denied any chest pain shortness of breath fever or chills. No significant events overnight - Objective Vital Signs & Weight: Vital Signs (12 hours) Temp Pulse Resp BP Pulse Ox 07/14/20 08:50 80 07/14/20 07:32 97.9 F 80 16 133/61 98 07/14/20 04:00 98.6 F 83 142/67 H 94 L Weight Admit Weight 173 lb 8 oz Weight 178 lb 8 oz I&O: 07/13/20 07/14/20 07/15/20 06:59 06:59 06:59 Intake Total 1450 1360 Output Total 500 1050 Balance 950 310 Result Diagrams: 07/14/20 04:08 07/14/20 04:08 Additional Labs: Accuchecks 07/14/20 07/14/20 07/13/20 11:09 06:33 21:35 POC Glucose 154 H 117 H 145 H 07/13/20 16:44 POC Glucose 133 H Hospitalist ROS - Review of Systems All other systems reviewed; all pertinent +/- noted in HPI/Subj - Medication Medications: Active Medications Generic Name Dose Route Start Last Admin Trade Name Freq PRN Reason Stop Dose Admin Acetaminophen 650 mg 07/09/20 03:22 07/13/20 20:21 Acetaminophen 325 Mg Tab PO 650 mg Q4H PRN Administration Headache/Fever/Mild Pain (1-3) Atorvastatin Calcium 40 mg 07/09/20 21:00 07/13/20 20:22 Atorvastatin Calcium 40 Mg Tab PO 40 mg HS CHARLY Administration Epoetin Demetrio-epbx 10,000 unit 07/13/20 15:00 07/13/20 18:30 Epoetin Demetrio-Epbx (Esrd) 10,000 Unit/Ml Vial SC 10,000 unit Q7D CHARLY Administration Famotidine 20 mg 07/09/20 09:00 07/14/20 08:50 Famotidine 20 Mg Tab PO 20 mg DAILY CHARLY Administration Ferrous Sulfate 325 mg 07/09/20 09:00 07/14/20 08:50 Ferrous Sulfate 325 Mg Tab PO 325 mg BID CHARLY Administration Insulin Human Lispro 0 units 07/09/20 04:12 07/13/20 11:54 Humalog 300 Units/3 Ml Vial SC 2 unit .MILD SLIDING SCALE PRN Administration Mild Correctional Scale Labetalol HCl 100 mg 07/11/20 09:00 07/14/20 08:50 Labetalol 100 Mg Tab PO 100 mg BID CHARLY Administration Multivitamins 1 tab 07/09/20 09:00 07/14/20 08:50 Multivit, Therapeutic 1 Tab PO 1 tab DAILY CHARLY Administration Nifedipine 60 mg 07/10/20 21:00 07/14/20 08:50 Nifedipine Xl 60 Mg Tab PO 60 mg BID CHARLY Administration Sodium Bicarbonate 1,300 mg 07/11/20 09:00 07/14/20 08:50 Sodium Bicarbonate Tab 325 Mg Tab PO 1,300 mg TID CHARLY Administration Sodium Chloride 10 ml 07/09/20 03:22 07/13/20 20:21 Flush - Normal Saline 10 Ml Syringe IVF 10 ml Q12HR PRN Administration Saline Flush Spironolactone 50 mg 07/14/20 08:00 07/14/20 08:50 Spironolactone 25 Mg Tab PO 50 mg QAM-WM CHARLY Administration Torsemide 40 mg 07/14/20 09:00 07/14/20 08:49 Torsemide 20 Mg Tab PO 40 mg DAILY CHARLY Administration - Exam General Appearance: awake alert Eye: PERRL, anicteric sclera ENT: normocephalic atraumatic, no oropharyngeal lesions Neck: no JVD Heart: RRR, no murmur, no gallops, no rubs Respiratory: CTAB, no wheezes, no rales, no ronchi Gastrointestinal: soft, non-tender, non-distended, normal bowel sounds, no palpable masses Extremities: no cyanosis, no clubbing, no edema Neurological: cranial nerve grossly intact, normal sensation to touch Psychiatric: normal affect, normal behavior, A&O x 3 Hosp A/P - Plan This is a 50-year-old male patient with a history of CHF, type 2 diabetes mellitus and hypertension admitted on account of JOSE LUIS, nausea and vomiting of unclear etiology. She is currently going to be assessed for dialysis initiation. JOSE LUIS Unclear etiology Creatinine at 8.31 today Renal biopsy done on 07/12 Currently being assessed by surgery for dialysis accesssurgery consult Nephrology following. Nausea vomiting diarrhea Significantly improved Likely due to uremia Monitor. Anasarca MultifactorialAKI CHF Lasix held due to worsening renal function Continue monitoringappreciate nephrology input. Generalized weakness the setting of JOSE LUIS Type 2 diabetes mellitus Continue insulin Monitor glucose Hypertension Continue home medications. VT prophylaxisHeparin CODE STATUS: Full code
[2020-07-14 16:36] LABS: #Basophils 0.1 thou/uL (0.0-0.2); #Eosinphils 0.4 thou/uL (0.0-0.7); #Lymphocytes 1.2 thou/uL (1.20-3.40); #Monocytes 0.7 thou/uL (0.11-0.59); #Neutrophils 7.5 thou/uL (1.40-6.50); %Basophils 0.5 % (0.0-1.0); %Eosinophils 3.8 % (0.0-10.0); %Lymphocytes 12.3 % (21.0-51.0); %Monocytes 7.2 % (0.0-10.0); %Neutrophils 76.2 % (42.0-75.0); Hemoglobin 8.9 g/dL (12.0-16.0); Mean Corpuscular HGB CONC 33.2 g/dL (32.0-36.0); Mean Corpuscular Hemoglobin 31.2 pg (27.0-31.0); Mean Platelet Volume 9.7 fL (7.4-10.4); Platelet Count 247 thou/uL (130-400); RBC Distribution Width 14.2 % (11.5-14.5); Red Blood Cell (RBC) Count 2.85 mill/uL (4.20-5.40); White Blood Cell (WBC) Count 9.8 thou/uL (4.8-10.8)
[2020-07-14] MEDS: Heparin 5,000 UNITS/ML VIAL SC SCH (20:23)
[2020-07-14] MEDS: Atorvastatin Calcium 40 MG TAB PO SCH (20:25)
[2020-07-14] MEDS: Acetaminophen 325 MG TAB PO PRN (20:42)
[2020-07-15 05:22] LABS: #Eosinphils 0.4 thou/uL (0.0-0.7); #Lymphocytes 1.1 thou/uL (1.20-3.40); #Monocytes 0.7 thou/uL (0.11-0.59); #Neutrophils 6.5 thou/uL (1.40-6.50); %Basophils 0.5 % (0.0-1.0); %Eosinophils 4.5 % (0.0-10.0); %Lymphocytes 12.5 % (21.0-51.0); %Monocytes 8.1 % (0.0-10.0); %Neutrophils 74.4 % (42.0-75.0); Mean Corpuscular HGB CONC 32.9 g/dL (32.0-36.0); Mean Corpuscular Volume 94.4 fL (78.0-98.0); Mean Platelet Volume 10.2 fL (7.4-10.4); Platelet Count 223 thou/uL (130-400); RBC Distribution Width 13.9 % (11.5-14.5); Red Blood Cell (RBC) Count 2.57 mill/uL (4.20-5.40); White Blood Cell (WBC) Count 8.7 thou/uL (4.8-10.8)
[2020-07-15 05:41] LABS: Anion Gap 19 mmol/L (10-20); BUN (Urea Nitrogen) 69 mg/dL (9.8-20.1); BUN/Creatinine Ratio 8.16; Calc. Creatinine Clearance 10 mL/min (70-130); Calcium 8.1 mg/dL (7.8-10.44); Carbon Dioxide 21 mmol/L (22-29); Chloride 104 mmol/L (98-107); Glucose 128 mg/dL (70-105); Phosphorus 5.5 mg/dL (2.3-4.7); Potassium 3.8 mmol/L (3.5-5.1); Sodium 140 mmol/L (136-145)
[2020-07-15] MEDS ORDERED: Fentanyl 100 MCG/2 ML VIAL ONE ×2 (07:15→10:50)
[2020-07-15] MEDS ORDERED: Phenylephrine 10 MG/ML VIAL ONE (07:16)
[2020-07-15] MEDS ORDERED: Promethazine HCl 25 MG/ML VIAL SLOW IVP PRN (09:08)
[2020-07-15] MEDS ORDERED: PACU-Morphine 4MG/ML VIAL SLOW IVP PRN (09:08)
[2020-07-15] MEDS ORDERED: Ondansetron HCl/PF 4 MG/2 ML Vial IVP PRN (09:08)
[2020-07-15] MEDS ORDERED: HYDROmorphone 2 MG/ML VIAL SLOW IVP PRN (09:08)
[2020-07-15] MEDS ORDERED: Promethazine HCl 25 MG/ML VIAL IM PRN (09:08)
--- NOTE | 2020-07-15 09:35 | PDOC.NEPPN ---
- Subjective Encounter Date: 07/15/20 - Objective Vital Signs & Weight: Vital Signs (12 hours) Temp Pulse Resp BP Pulse Ox 07/15/20 03:25 97.6 F 81 16 131/61 96 07/15/20 00:29 16 146/67 H Weight Admit Weight 173 lb 8 oz Weight 181 lb 3.2 oz I&O: 07/14/20 07/15/20 07/16/20 06:59 06:59 06:59 Intake Total 1360 1605 240 Output Total 1050 1000 800 Balance 310 605 -560 Result Diagrams: 07/15/20 04:41 07/15/20 04:41 Additional Labs: Accuchecks 07/15/20 07/14/20 07/14/20 06:08 20:41 16:34 POC Glucose 114 H 145 H 144 H 07/14/20 11:09 POC Glucose 154 H Nephrology ROS - Medication Medications: Active Medications Generic Name Dose Route Start Last Admin Trade Name Freq PRN Reason Stop Dose Admin Acetaminophen 650 mg 07/09/20 03:22 07/14/20 20:42 Acetaminophen 325 Mg Tab PO 650 mg Q4H PRN Administration Headache/Fever/Mild Pain (1-3) Atorvastatin Calcium 40 mg 07/09/20 21:00 07/14/20 20:25 Atorvastatin Calcium 40 Mg Tab PO 40 mg HS CHARLY Administration Epoetin Demetrio-epbx 10,000 unit 07/13/20 15:00 07/13/20 18:30 Epoetin Demetrio-Epbx (Esrd) 10,000 Unit/Ml Vial SC 10,000 unit Q7D CHARLY Administration Famotidine 20 mg 07/09/20 09:00 07/14/20 08:50 Famotidine 20 Mg Tab PO 20 mg DAILY CHARLY Administration Ferrous Sulfate 325 mg 07/09/20 09:00 07/14/20 20:24 Ferrous Sulfate 325 Mg Tab PO 325 mg BID CHARLY Administration Heparin Sodium (Porcine) 5,000 units 07/14/20 21:00 07/14/20 20:23 Heparin 5,000 Units/Ml Vial SC 5,000 units BID CHARLY Administration Insulin Human Lispro 0 units 07/09/20 04:12 07/13/20 11:54 Humalog 300 Units/3 Ml Vial SC 2 unit .MILD SLIDING SCALE PRN Administration Mild Correctional Scale Labetalol HCl 100 mg 07/11/20 09:00 07/14/20 20:25 Labetalol 100 Mg Tab PO 100 mg BID CHARLY Administration Multivitamins 1 tab 07/09/20 09:00 07/14/20 08:50 Multivit, Therapeutic 1 Tab PO 1 tab DAILY CHARLY Administration Nifedipine 60 mg 07/10/20 21:00 07/14/20 20:23 Nifedipine Xl 60 Mg Tab PO 60 mg BID CHARLY Administration Sodium Bicarbonate 1,300 mg 07/11/20 09:00 07/14/20 20:24 Sodium Bicarbonate Tab 325 Mg Tab PO 1,300 mg TID CHARLY Administration Sodium Chloride 10 ml 07/09/20 03:22 07/13/20 20:21 Flush - Normal Saline 10 Ml Syringe IVF 10 ml Q12HR PRN Administration Saline Flush Spironolactone 50 mg 07/14/20 08:00 07/14/20 08:50 Spironolactone 25 Mg Tab PO 50 mg QAM-WM CHARLY Administration Nephrology Results - Labs Result Diagrams: 07/15/20 04:41 07/15/20 04:41 Lab results: WBC 8.7 thou/uL (4.8-10.8) 07/15/20 04:41 Hgb 8.0 g/dL (12.0-16.0) L 07/15/20 04:41 Hct 24.3 % (36.0-47.0) L 07/15/20 04:41 MCV 94.4 fL (78.0-98.0) 07/15/20 04:41 Plt Count 223 thou/uL (130-400) 07/15/20 04:41 Neutrophils % 74.4 % (42.0-75.0) 07/15/20 04:41 ESR Westergren 22 mm/hr (Less than 30) 07/09/20 09:11 Sodium 140 mmol/L (136-145) 07/15/20 04:41 Potassium 3.8 mmol/L (3.5-5.1) 07/15/20 04:41 Chloride 104 mmol/L (98-107) 07/15/20 04:41 Carbon Dioxide 21 mmol/L (22-29) L 07/15/20 04:41 BUN 69 mg/dL (9.8-20.1) H 07/15/20 04:41 Creatinine 8.46 mg/dL (0.6-1.1) H 07/15/20 04:41 Glucose 128 mg/dL (70-105) H 07/15/20 04:41 Calcium 8.1 mg/dL (7.8-10.44) 07/15/20 04:41 Total Bilirubin 0.3 mg/dL (0.2-1.2) 07/08/20 20:09 AST 14 U/L (5-34) 07/08/20 20:09 ALT Less than 7 U/L (8-55) L 07/08/20 20:09 Alkaline Phosphatase 75 U/L (40-110) 07/08/20 20:09 Creatine Kinase 118 U/L (29-168) 07/08/20 20:09 Troponin I 0.022 ng/mL (< 0.028) 07/09/20 02:06 C-Reactive Protein 0.67 mg/dL (= or < 0.5) H 07/09/20 10:07 B-Natriuretic Peptide 1045.7 pg/mL (0-100) H 07/08/20 20:09 Serum Total Protein 6.1 g/dL (6.0-8.3) 07/08/20 20:09 Albumin 3.0 g/dL (3.5-5.0) L 07/15/20 04:41 Lipase 83 U/L (8-78) H 07/08/20 20:09 Urine Ketones Negative mg/dL (Negative) 07/08/20 20:58 Urine Blood 1+ (Negative) A 07/08/20 20:58 Urine Nitrite Negative (Negative) 07/08/20 20:58 Ur Leukocyte Esterase Negative Ananya/uL (Negative) 07/08/20 20:58 Urine RBC 0-3 HPF (0-3) 07/08/20 20:58 Urine WBC 0-3 HPF (0-3) 07/08/20 20:58 Ur Squamous Epith Cells 0-3 HPF (0-3) 07/08/20 20:58 Urine Bacteria Rare-Few HPF (None Seen) 07/08/20 20:58 Sodium 140 mmol/L (136-145) 07/15/20 04:41 Potassium 3.8 mmol/L (3.5-5.1) 07/15/20 04:41 Chloride 104 mmol/L (98-107) 07/15/20 04:41 Carbon Dioxide 21 mmol/L (22-29) L 07/15/20 04:41 Anion Gap 19 mmol/L (10-20) 07/15/20 04:41 BUN 69 mg/dL (9.8-20.1) H 07/15/20 04:41 Creatinine 8.46 mg/dL (0.6-1.1) H 07/15/20 04:41 Glucose 128 mg/dL (70-105) H 07/15/20 04:41 Calcium 8.1 mg/dL (7.8-10.44) 07/15/20 04:41 Phosphorus 5.5 mg/dL (2.3-4.7) H 07/15/20 04:41 Magnesium 1.7 mg/dL (1.6-2.6) 07/13/20 06:10 Albumin 3.0 g/dL (3.5-5.0) L 07/15/20 04:41 Nephrology AP PN - Plan ASSESSMENT: JOSE LUIS On CKD: Acute kidney injury due to acute tubular injury. Chronic kidney disease, stage 3: Due to Nodular diabete glomerulosclerosis and severe in terstitial fibrosis and tubular atrophy. 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 Diabetes mellitus, on treatment. Hypertension, on treatment. Obesity. Hyperkalemia: Most likely due to acute kidney injury and use of losartan. Resolved Metabolic acidosis. Anemia Due to anemia of chronic kidney disease/chronic illness andIron deficiency HTN: Control is adequate Discussion: Discussed renal biopsy report with patient and need for renal replacement therapy. We discussed dialytic options of PD and HD, Patient will like to do PD. However given marked anasarca we decided to start with HD to facilitate Volume magt and then transition to PD. We also talked about TDC and PD catheter placement and patient verbalized understanding and elected to proceed. PLAN Will transfuse PRBC. Increase diuretic therapy with torsemide and spironolactone. Continue labetalol and nifedipine for BP control Continue alkali therapy Continue IV iron and NIESHA Consult Gen Surgery for TDC and PD catheter placement monitor I/O, H/H and renal function
[2020-07-15] MEDS ORDERED: Metoclopramide HCl 10 MG/2 ML VIAL ONE ×2 (10:38→11:41)
--- NOTE | 2020-07-15 10:52 | PDOC.OP ---
Operative Note - Operative Note Operative Note: DATE OF PROCEDURE: PROCEDURE: Placement of tunneled hemodialysis catheter with ultrasound and fluoroscopic guidance, laparoscopic cholecystectomy, and laparoscopic peritoneal dialysis catheter placement. SURGEON: Davonte Moran M.D. PREOPERATIVE DIAGNOSIS: Renal failure. POSTOPERATIVE DIAGNOSIS: Renal failure. HISTORY: Patient with renal failure. 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 She also was incidentally noted to have gallstones and opted to proceed with laparoscopic cholecystectomy under the same anesthesia as she has been having issues with nausea, vomiting and abdominal pain. PROCEDURE: After informed consent was obtained and appropriate preoperative antibiotics were administered, the patient was taken to the Operating Room, placed in the supine position and general endotracheal anesthesia was administered. The neck, chest, and abdomen were prepped and draped in a standard sterile fashion and the patient placed in Trendelenburg position. A sterile ultrasound probe was used to identify the patent compressible right IJ vein which was accessed under direct ultrasound guidance. A wire was threaded through the needle and confirmed by ultrasound to be within the patent compressible vessel with the tip in the vena cava by fluoroscopy. Local anesthesia was infused to the skin and subcutaneous tissues of the right neck and chest. An infraclavicular incision was made and a catheter tunneled from the infraclavicular to the right IJ access site. The right IJ was sequentially dilated over the wire following which a dilator and sheath were placed over the wire and the dilator and wire removed leaving the sheath in place. The catheter was tunneled through the sheath which was then split and removed leaving the catheter in place. This was confirmed by fluoroscopy to be in good position in the superior vena cava with no kinking of the course of the catheter. Both po rts easily aspirated dark venous nonpulsatile blood and easily flushed without resistance. Heparin was instilled to the quantity specified on the hub, and the hub was secured to the skin with 3-0 nylon sutures. The skin incision at the neck was closed in two layers with 4-0 Monocryl suture and Dermabond dressings were placed. The skin at the exit site was snugged up around the catheter with 4-0 Monocryl suture and Dermabond was placed there as well. Once the Dermabond was dry, a Biopatch and Tegaderm dressing was placed at the exit site. Attention was then turned to the laparoscopic cholecystectomy. Local anesthesia was infused to the skin and subcutaneous tissues at the umbilical level. A transverse skin incision was made. The fascia was elevated and a Veress needle was placed into the abdominal cavity without difficulty. Opening pressure was less than 5 and carbon dioxide gas easily insufflated to an intra-abdominal pressure of 15, which the patient tolerated well. The Veress needle was withdrawn and a 5 mm Voltaire port advanced under direct vision. The abdominal cavity was carefully examined. There was no evidence of Veress needle or of trocar injury. Local anesthesia was infused to the skin and subcutaneous tissues at the epigastric, right upper quadrant, and right lateral abdominal sites and trocars were placed under direct vision of the laparoscope. An 8 mm port was used to the epigastric location for easier removal of the gallbladder at that location. The other ports were both 5 mm ports. The fundus of the gallbladder was grasped and retracted superiorly. Some omental adhesions were taken down through the area of avascular plane using electrocautery exposing the infundibulum. The infundibulum was grasped and retracted laterally. The serosa was stripped inferiorly at the level of the neck of the gallbladder exposing the cystic duct and artery which were traced clearly to their insertion in the gallbladder. Critical view of safety was obtained and the cystic duct and artery were clipped and divided between clips. The gallbladder was then dissected free of the gallbladder bed using hook electrocautery. Prior to co mplete removal of the gallbladder from the gallbladder bed, the area of the cystic duct and artery stumps was examined. The clips were in good position completely across these structures and there was no bleeding and no leakage of bile. The gallbladder was then placed into an EndoCatch bag and drawn out through the epigastric incision. The epigastric trocar was replaced and the operative site easily irrigated to clear. There was no significant bleeding and no spillage of bile. The epigastric trocar was removed and the fascia closed under direct laparoscopic vision with a 0 Vicryl suture on a GraNee needle in a [id number] manner with excellent technical result. Attention was then turned to the placement of the laparoscopic peritoneal dialysis catheter. The patient was placed in Trendelenburg. The small bowel was easily drawn up out of the pelvis and no adhesions seen in this area. With the exception of a couple small cysts the embryo and ovaries looked grossly normal. The bottom of the posterior rectus sheath was identified. Local anesthesia was infused to the skin and subcutaneous tissues overlying and superior to this area. A skin incision was made and an 8 mm trocar tunneled inferiorly through the rectus sheath entering the abdominal cavity just above the inferior edge of the rectus sheath. The peritoneal dialysis catheter was placed through the trocar and held in place positioning the inner cuff within the rectus muscle. The trocar was withdrawn and the end of the peritoneal dialysis catheter placed into the pelvis. Saline was infused and drained easily out of the peritoneal cavity through the cuffed tunneled dialysis catheter. The camera was moved to the right lateral abdominal trocar site and the umbilical trocar removed. The fascia was bridged with a 0 Vicryl suture on a GraNee needle and the sutures secured not tied down. The patient was incidentally noted to have a fascial defect consistent with an umbilical hernia just above the trocar incision, with no protruding sac. This was closed with a [id number] 0 Vicryl suture as well. The trocar was replaced through the same defect and the camera moved back to the umbilical location. The right upper quadrant and right lateral abdominal trocars were removed and a 0 Vicryl suture on a GraNee needle used to close the fascial defects. Carbon dioxide gas was allowed to desufflate through the umbilical trocar which was then removed and the fascia closed with the pre- existing suture. The second cuff of the peritoneal dialysis catheter was positioned within the subcutaneous tissues and the skin incision at the exit site closed in 2 layers with 4-0 Monocryl suture. The other skin incisions were closed with subcuticular 4-0 Monocryl suture as well. Dermabond dressings were placed and allowed to dry. Heparin flush was infused through the peritoneal dialysis catheter which was then capped and clamped. Once the Dermabond was dry the PD exit site was dressed with gauze and Tegaderm. The patient was extubated and taken to the recovery room in good condition. Estimated blood loss was minimal. There were no complications. Specimen is gallbladder.
--- NOTE | 2020-07-15 11:28 | RAD ---
Chest one view HISTORY: Dialysis catheter placement. COMPARISON: 07/08/2020. FINDINGS: Cardiac silhouette is magnified and upper limits of normal in size. Pulmonary vasculature a lso upper limits of normal. Mediastinum is midline. Tip of a new right internal jugular large caliber dialysis type catheter proj ects over the superior vena cava. Right subclavian implanted port remains in place. No evidence of pneumothorax. No lobar consolidation or evidence of pneumothorax. IMPRESSION : Right internal jugular catheter in good radiographic position.
[2020-07-15] MEDS ORDERED: Heparin 10,000 UNITS/ 10 ML VIAL ONE (12:02)
[2020-07-15] MEDS: Famotidine 20 MG TAB PO SCH (12:45)
[2020-07-15] MEDS: Spironolactone 25 MG TAB PO SCH (12:45)
[2020-07-15] MEDS: Sodium Bicarbonate Tab 325 MG TAB PO SCH ×2 (12:46→16:20)
[2020-07-15] MEDS: Torsemide 100 MG TAB PO SCH (12:46)
[2020-07-15] MEDS: Multivit, Therapeutic 1 TAB PO SCH (12:46)
[2020-07-15] MEDS: Heparin 5,000 UNITS/ML VIAL SC SCH ×2 (12:46→21:21)
[2020-07-15] MEDS: Ferrous Sulfate 325 MG TAB PO SCH ×2 (12:47→21:19)
--- NOTE | 2020-07-15 14:35 | PDOC.NEPPN ---
- Subjective Encounter Date: 07/15/20 Subjective: Seen in follow up for renal failure with generalized edema. Had TDC and PD catheter placement earlier today. Complaining of generalized pain. - Objective Vital Signs & Weight: Vital Signs (12 hours) Temp Pulse Resp BP Pulse Ox 07/15/20 14:05 96.9 F L 78 19 177/81 H 97 07/15/20 13:30 78 22 H 168/76 H 97 07/15/20 12:58 97.0 F L 76 20 168/73 H 97 07/15/20 12:30 96.8 F L 75 22 H 177/75 H 97 07/15/20 11:50 97.0 F L 74 20 169/71 H 95 07/15/20 03:25 97.6 F 81 16 131/61 96 Weight Admit Weight 173 lb 8 oz Weight 181 lb 3.2 oz I&O: 07/14/20 07/15/20 07/16/20 06:59 06:59 06:59 Intake Total 1360 1605 240 Output Total 1050 1000 800 Balance 310 605 -560 Result Diagrams: 07/15/20 04:41 07/15/20 04:41 Additional Labs: Accuchecks 07/15/20 07/15/20 07/14/20 11:02 06:08 20:41 POC Glucose 122 H 114 H 145 H 07/14/20 16:34 POC Glucose 144 H Nephrology ROS - Medication Medications: Active Medications Generic Name Dose Route Start Last Admin Trade Name Freq PRN Reason Stop Dose Admin Acetaminophen 650 mg 07/09/20 03:22 07/14/20 20:42 Acetaminophen 325 Mg Tab PO 650 mg Q4H PRN Administration Headache/Fever/Mild Pain (1-3) Atorvastatin Calcium 40 mg 07/09/20 21:00 07/14/20 20:25 Atorvastatin Calcium 40 Mg Tab PO 40 mg HS CHARLY Administration Epoetin Demetrio-epbx 10,000 unit 07/13/20 15:00 07/13/20 18:30 Epoetin Demetrio-Epbx (Esrd) 10,000 Unit/Ml Vial SC 10,000 unit Q7D CHARLY Administration Famotidine 20 mg 07/09/20 09:00 07/15/20 12:45 Famotidine 20 Mg Tab PO Not Given DAILY CHARLY Ferrous Sulfate 325 mg 07/09/20 09:00 07/15/20 12:47 Ferrous Sulfate 325 Mg Tab PO Not Given BID [facility] Heparin Sodium (Porcine) 5,000 units 07/14/20 21:00 07/15/20 12:46 Heparin 5,000 Units/Ml Vial SC Not Given BID [facility] Insulin Human Lispro 0 units 07/09/20 04:12 07/13/20 11:54 Humalog 300 Units/3 Ml Vial SC 2 unit .MILD SLIDING SCALE PRN Administration Mild Correctional Scale Labetalol HCl 100 mg 07/11/20 09:00 07/14/20 20:25 Labetalol 100 Mg Tab PO 100 mg BID [facility] Administration Multivitamins 1 tab 07/09/20 09:00 07/15/20 12:46 Multivit, Therapeutic 1 Tab PO Not Given DAILY [facility] Nifedipine 60 mg 07/10/20 21:00 07/14/20 20:23 Nifedipine Xl 60 Mg Tab PO 60 mg BID CHARLY Administration Sodium Bicarbonate 1,300 mg 07/11/20 09:00 07/15/20 12:46 Sodium Bicarbonate Tab 325 Mg Tab PO Not Given TID [facility] Sodium Chloride 10 ml 07/09/20 03:22 07/13/20 20:21 Flush - Normal Saline 10 Ml Syringe IVF 10 ml Q12HR PRN Administration Saline Flush Spironolactone 50 mg 07/14/20 08:00 07/15/20 12:45 Spironolactone 25 Mg Tab PO Not Given QAM-WM [facility] Torsemide 100 mg 07/15/20 09:00 07/15/20 12:46 Torsemide 100 Mg Tab PO Not Given DAILY CHARLY - Exam General Appearance: awake alert General - other findings: obese Eye: anicteric sclera ENT: normocephalic atraumatic, moist mucosa Neck: symmetric Respiratory - other findings: fair air entry bilaterally Cardiovascular: RRR Gastrointestinal: soft, non-distended Gastrointestinal - other findings: appropriate diffuse tenderness Extremities - other findings: edema of the extremities Lower >>>uper Neurological: CN's grossly intact, no focal deficits PSYCH: A&O x 3 Nephrology Results - Labs Result Diagrams: 07/15/20 04:41 07/15/20 04:41 Lab results: WBC 8.7 thou/uL (4.8-10.8) 07/15/20 04:41 Hgb 8.0 g/dL (12.0-16.0) L 07/15/20 04:41 Hct 24.3 % (36.0-47.0) L 07/15/20 04:41 MCV 94.4 fL (78.0-98.0) 07/15/20 04:41 Plt Count 223 thou/uL (130-400) 07/15/20 04:41 Neutrophils % 74.4 % (42.0-75.0) 07/15/20 04:41 ESR Westergren 22 mm/hr (Less than 30) 07/09/20 09:11 Sodium 140 mmol/L (136-145) 07/15/20 04:41 Potassium 3.8 mmol/L (3.5-5.1) 07/15/20 04:41 Chloride 104 mmol/L (98-107) 07/15/20 04:41 Carbon Dioxide 21 mmol/L (22-29) L 07/15/20 04:41 BUN 69 mg/dL (9.8-20.1) H 07/15/20 04:41 Creatinine 8.46 mg/dL (0.6-1.1) H 07/15/20 04:41 Glucose 128 mg/dL (70-105) H 07/15/20 04:41 Calcium 8.1 mg/dL (7.8-10.44) 07/15/20 04:41 Total Bilirubin 0.3 mg/dL (0.2-1.2) 07/08/20 20:09 AST 14 U/L (5-34) 07/08/20 20:09 ALT Less than 7 U/L (8-55) L 07/08/20 20:09 Alkaline Phosphatase 75 U/L (40-110) 07/08/20 20:09 Creatine Kinase 118 U/L (29-168) 07/08/20 20:09 Troponin I 0.022 ng/mL (< 0.028) 07/09/20 02:06 C-Reactive Protein 0.67 mg/dL (= or < 0.5) H 07/09/20 10:07 B-Natriuretic Peptide 1045.7 pg/mL (0-100) H 07/08/20 20:09 Serum Total Protein 6.1 g/dL (6.0-8.3) 07/08/20 20:09 Albumin 3.0 g/dL (3.5-5.0) L 07/15/20 04:41 Lipase 83 U/L (8-78) H 07/08/20 20:09 Urine Ketones Negative mg/dL (Negative) 07/08/20 20:58 Urine Blood 1+ (Negative) A 07/08/20 20:58 Urine Nitrite Negative (Negative) 07/08/20 20:58 Ur Leukocyte Esterase Negative Ananya/uL (Negative) 07/08/20 20:58 Urine RBC 0-3 HPF (0-3) 07/08/20 20:58 Urine WBC 0-3 HPF (0-3) 07/08/20 20:58 Ur Squamous Epith Cells 0-3 HPF (0-3) 07/08/20 20:58 Urine Bacteria Rare-Few HPF (None Seen) 07/08/20 20:58 Sodium 140 mmol/L (136-145) 07/15/20 04:41 Potassium 3.8 mmol/L (3.5-5.1) 07/15/20 04:41 Chloride 104 mmol/L (98-107) 07/15/20 04:41 Carbon Dioxide 21 mmol/L (22-29) L 07/15/20 04:41 Anion Gap 19 mmol/L (10-20) 07/15/20 04:41 BUN 69 mg/dL (9.8-20.1) H 07/15/20 04:41 Creatinine 8.46 mg/dL (0.6-1.1) H 07/15/20 04:41 Glucose 128 mg/dL (70-105) H 07/15/20 04:41 Calcium 8.1 mg/dL (7.8-10.44) 07/15/20 04:41 Phosphorus 5.5 mg/dL (2.3-4.7) H 07/15/20 04:41 Magnesium 1.7 mg/dL (1.6-2.6) 07/13/20 06:10 Albumin 3.0 g/dL (3.5-5.0) L 07/15/20 04:41 Nephrology AP PN - Plan ASSESSMENT: JOSE LUIS On CKD: Acute kidney injury due to acute tubular injury. 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 Renal biopsy showed acute gtubular injury superimposed on nodular dibetic glomerulosclerosis and severe IFTA. Nephrotic syndrome due to diabetic nephropathy. Diabetes mellitus, on treatment. Hypertension, on treatment. Obesity. Hyperkalemia: Most likely due to acute kidney injury and use of losartan. Resolved Metabolic acidosis. Anemia Due to anemia of chronic kidney disease/chronic illness andIron deficiency HTN: Control is adequate PLAN Will initiate HD today. See EMR for order. Continue antihypertensives and diuretic. Analgesic as needed Consult case mgt for outpatient dilaysis placement.
[2020-07-15] MEDS: Labetalol 100 MG TAB PO SCH ×2 (16:19→21:21)
[2020-07-15] MEDS: NIFEdipine XL 60 MG TAB PO SCH ×2 (16:19→21:20)
[2020-07-15] MEDS: Acetaminophen/Codeine 30-300mg Tablet PO PRN ×2 (16:20→21:19)
[2020-07-15 16:41] LABS: HBSAB Concentration Less than 8.00 mIU/mL; Hep B Core Total Ab Non-Reactive (NonReactive); Hep B Core Total Index 0.05 S/CO (0-0.79); Hep B Surf AB Non-Reactive (NonReactive); Hep B Surf Ag Non-Reactive S/CO (NonReactive); Hep C IgG Ab Non-Reactive (NonReactive); Hep C Index 0.05 S/CO (0-0.79)
--- NOTE | 2020-07-15 17:23 | PDOC.HOSPP ---
- Subjective Encounter Date: 07/15/20 Subjective: Patient was seen and examined in bed. She had just returned from dialysis access placement and status post laparoscopic cholecystectomy. She denies any pain at the time of my assessment. Denies any shortness of breath palpitations or chest pain. - Objective Vital Signs & Weight: Vital Signs (12 hours) Temp Pulse Resp BP Pulse Ox 07/15/20 16:19 78 07/15/20 14:05 96.9 F L 78 19 177/81 H 97 07/15/20 13:30 78 22 H 168/76 H 97 07/15/20 12:58 97.0 F L 76 20 168/73 H 97 07/15/20 12:30 96.8 F L 75 22 H 177/75 H 97 07/15/20 11:50 97.0 F L 74 20 169/71 H 95 Weight Admit Weight 173 lb 8 oz Weight 181 lb 3.2 oz I&O: 07/14/20 07/15/20 07/16/20 06:59 06:59 06:59 Intake Total 1360 1605 240 Output Total 1050 1000 800 Balance 310 605 -560 Result Diagrams: 07/15/20 04:41 07/15/20 04:41 Additional Labs: Accuchecks 07/15/20 07/15/20 07/14/20 11:02 06:08 20:41 POC Glucose 122 H 114 H 145 H Hospitalist ROS - Review of Systems All other systems reviewed; all pertinent +/- noted in HPI/Subj - Medication Medications: Active Medications Generic Name Dose Route Start Last Admin Trade Name Freq PRN Reason Stop Dose Admin Acetaminophen 650 mg 07/09/20 03:22 07/14/20 20:42 Acetaminophen 325 Mg Tab PO 650 mg Q4H PRN Administration Headache/Fever/Mild Pain (1-3) Acetaminophen/Codeine Phosphate 1 tab 07/15/20 16:06 07/15/20 16:20 Acetaminophen/Codeine 30-300mg Tablet PO 1 tab Q4H PRN Administration Moderate Pain (4-6) Atorvastatin Calcium 40 mg 07/09/20 21:00 07/14/20 20:25 Atorvastatin Calcium 40 Mg Tab PO 40 mg HS CHARLY Administration Epoetin Demetrio-epbx 10,000 unit 07/13/20 15:00 07/13/20 18:30 Epoetin Demetrio-Epbx (Esrd) 10,000 Unit/Ml Vial SC 10,000 unit Q7D CHARLY Administration Famotidine 20 mg 07/09/20 09:00 07/15/20 12:45 Famotidine 20 Mg Tab PO Not Given DAILY [facility] Ferrous Sulfate 325 mg 07/09/20 09:00 07/15/20 12:47 Ferrous Sulfate 325 Mg Tab PO Not Given BID [facility] Heparin Sodium (Porcine) 5,000 units 07/14/20 21:00 07/15/20 12:46 Heparin 5,000 Units/Ml Vial SC Not Given BID [facility] Insulin Human Lispro 0 units 07/09/20 04:12 07/13/20 11:54 Humalog 300 Units/3 Ml Vial SC 2 unit .MILD SLIDING SCALE PRN Administration Mild Correctional Scale Labetalol HCl 100 mg 07/11/20 09:00 07/15/20 16:19 Labetalol 100 Mg Tab PO Not Given BID [facility] Multivitamins 1 tab 07/09/20 09:00 07/15/20 12:46 Multivit, Therapeutic 1 Tab PO Not Given DAILY [facility] Nifedipine 60 mg 07/10/20 21:00 07/15/20 16:19 Nifedipine Xl 60 Mg Tab PO Not Given BID [facility] Sodium Bicarbonate 1,300 mg 07/11/20 09:00 07/15/20 16:20 Sodium Bicarbonate Tab 325 Mg Tab PO Not Given TID [facility] Sodium Chloride 10 ml 07/09/20 03:22 07/13/20 20:21 Flush - Normal Saline 10 Ml Syringe IVF 10 ml Q12HR PRN Administration Saline Flush Spironolactone 50 mg 07/14/20 08:00 07/15/20 12:45 Spironolactone 25 Mg Tab PO Not Given QAM-WM [facility] Torsemide 100 mg 07/15/20 09:00 07/15/20 12:46 Torsemide 100 Mg Tab PO Not Given DAILY CHARLY - Exam General Appearance: awake alert Eye: PERRL, anicteric sclera, scleral icterus Heart: RRR, no murmur, no gallops, no rubs, normal peripheral pulses Respiratory: no wheezes, no rales, no ronchi Gastrointestinal: soft, non-tender, non-distended Extremities: no cyanosis, no clubbing, no edema Neurological: cranial nerve grossly intact, no focal deficits Psychiatric: normal affect, A&O x 3 Hosp A/P - Plan This is a 50-year-old male patient with a history of CHF, type 2 diabetes mellitus and hypertension admitted on account of JOSE LUIS, nausea and vomiting of unclear etiology. Decision was made to place dialysis access. She is post dialysis port placement, Peritoneal dialysis catheter placement and also cholecystectomy. She is stable so far. JOSE LUIS Unclear etiology Creatinine at 8.31 today Renal biopsy done on 07/12 Plan to initiate dialysisstatus post tunnelled hemodialysis cath/PD access placement. Nephrology following. Nausea vomiting diarrhea Resolved Monitor. Anasarca MultifactorialAKI CHF Lasix held due to worsening renal function Continue monitoringappreciate nephrology input. Generalized weakness the setting of JOSE LUIS Type 2 diabetes mellitus Continue insulin Monitor glucose Hypertension Continue home medications. -s/p cholecystectomy surgery following Anemia Status post 1 transfusion Hemoglobin stable at 80 Monitor H&H VT prophylaxisHeparin CODE STATUS: Full code
[2020-07-15] MEDS: Atorvastatin Calcium 40 MG TAB PO SCH (21:19)
[2020-07-15] MEDS ORDERED: hydrALAZINE 20 MG/ML VIAL SLOW IVP PRN (21:47)
[2020-07-15] MEDS ORDERED: Ondansetron PF 4 MG/2 ML Vial IVP PRN (21:51)
[2020-07-15] MEDS ORDERED: Sodium Chloride 0.9% 10 ML ONE (22:53)
[2020-07-16] MEDS: Sodium Bicarbonate Tab 325 MG TAB PO SCH ×4 (00:21→21:31)
[2020-07-16] MEDS: Acetaminophen/Codeine 30-300mg Tablet PO PRN ×2 (05:54→21:18)
--- NOTE | 2020-07-16 07:46 | PDOC.NEPPN ---
- Subjective Encounter Date: 07/16/20 Subjective: No new problem. Feeling more comfortable. - Objective Vital Signs & Weight: Vital Signs (12 hours) Temp Pulse Resp BP BP Pulse Ox 07/16/20 03:50 98.6 F 88 16 156/52 H 95 07/16/20 00:40 97.9 F 90 18 156/62 H 95 07/15/20 22:55 89 180/76 H 07/15/20 22:20 180/76 H 07/15/20 21:21 89 218/93 H 07/15/20 21:20 87 218/93 H 219/91 H 07/15/20 21:00 98.3 F 89 16 218/93 H 97 Weight Admit Weight 173 lb 8 oz Weight 181 lb 3.2 oz I&O: 07/15/20 07/16/20 07/17/20 06:59 06:59 06:59 Intake Total 1605 550 Output Total 1000 1100 Balance 605 -550 Result Diagrams: 07/15/20 04:41 07/16/20 07:41 Additional Labs: Accuchecks 07/16/20 07/15/20 05:56 11:02 POC Glucose 90 122 H Nephrology ROS - Medication Medications: Active Medications Generic Name Dose Route Start Last Admin Trade Name Freq PRN Reason Stop Dose Admin Acetaminophen 650 mg 07/09/20 03:22 07/14/20 20:42 Acetaminophen 325 Mg Tab PO 650 mg Q4H PRN Administration Headache/Fever/Mild Pain (1-3) Acetaminophen/Codeine Phosphate 1 tab 07/15/20 16:06 07/16/20 05:54 Acetaminophen/Codeine 30-300mg Tablet PO 1 tab Q4H PRN Administration Moderate Pain (4-6) Atorvastatin Calcium 40 mg 07/09/20 21:00 07/15/20 21:19 Atorvastatin Calcium 40 Mg Tab PO 40 mg HS CHARLY Administration Epoetin Demetrio-epbx 10,000 unit 07/13/20 15:00 07/13/20 18:30 Epoetin Demetrio-Epbx (Esrd) 10,000 Unit/Ml Vial SC 10,000 unit Q7D CHARLY Administration Famotidine 20 mg 07/09/20 09:00 07/15/20 12:45 Famotidine 20 Mg Tab PO Not Given DAILY CHARLY Ferrous Sulfate 325 mg 07/09/20 09:00 07/15/20 21:19 Ferrous Sulfate 325 Mg Tab PO 325 mg BID CHARLY Administration Heparin Sodium (Porcine) 5,000 units 07/14/20 21:00 07/15/20 21:21 Heparin 5,000 Units/Ml Vial SC 5,000 units BID CHARLY Administration Hydralazine HCl 10 mg 07/15/20 21:47 07/15/20 22:55 Hydralazine 20 Mg/Ml Vial SLOW IVP 10 mg Q4H PRN Administration SBP > 180 and HR < 70 Insulin Human Lispro 0 units 07/09/20 04:12 07/13/20 11:54 Humalog 300 Units/3 Ml Vial SC 2 unit .MILD SLIDING SCALE PRN Administration Mild Correctional Scale Labetalol HCl 100 mg 07/11/20 09:00 07/15/20 21:21 Labetalol 100 Mg Tab PO 100 mg BID CHARLY Administration Multivitamins 1 tab 07/09/20 09:00 07/15/20 12:46 Multivit, Therapeutic 1 Tab PO Not Given DAILY [facility] Nifedipine 60 mg 07/10/20 21:00 07/15/20 21:20 Nifedipine Xl 60 Mg Tab PO 60 mg BID CHARLY Administration Ondansetron HCl 4 mg 07/15/20 21:51 07/16/20 01:16 Ondansetron Pf 4 Mg/2 Ml Vial IVP 4 mg Q6H PRN Administration Nausea/Vomiting Sodium Bicarbonate 1,300 mg 07/11/20 09:00 07/16/20 00:21 Sodium Bicarbonate Tab 325 Mg Tab PO Not Given TID CHARLY Sodium Chloride 10 ml 07/09/20 03:22 07/13/20 20:21 Flush - Normal Saline 10 Ml Syringe IVF 10 ml Q12HR PRN Administration Saline Flush Spironolactone 50 mg 07/14/20 08:00 07/15/20 12:45 Spironolactone 25 Mg Tab PO Not Given QAM-WM [facility] Torsemide 100 mg 07/15/20 09:00 07/15/20 12:46 Torsemide 100 Mg Tab PO Not Given DAILY CHARLY - Exam General Appearance: awake alert Eye: anicteric sclera ENT: normocephalic atraumatic Neck: no JVD Respiratory: no rales, no tachypnea Cardiovascular: RRR Gastrointestinal: soft, non-tender, normal bowel sounds Gastrointestinal - other findings: PD catheter noted Neurological: CN's grossly intact Musculoskeletal - other findings: right TDC noted PSYCH: A&O x 3 Nephrology Results - Labs Result Diagrams: 07/15/20 04:41 07/16/20 07:41 Lab results: WBC 8.7 thou/uL (4.8-10.8) 07/15/20 04:41 Hgb 8.0 g/dL (12.0-16.0) L 07/15/20 04:41 Hct 24.3 % (36.0-47.0) L 07/15/20 04:41 MCV 94.4 fL (78.0-98.0) 07/15/20 04:41 Plt Count 223 thou/uL (130-400) 07/15/20 04:41 Neutrophils % 74.4 % (42.0-75.0) 07/15/20 04:41 ESR Westergren 22 mm/hr (Less than 30) 07/09/20 09:11 Sodium 140 mmol/L (136-145) 07/15/20 04:41 Potassium 3.8 mmol/L (3.5-5.1) 07/15/20 04:41 Chloride 104 mmol/L (98-107) 07/15/20 04:41 Carbon Dioxide 21 mmol/L (22-29) L 07/15/20 04:41 BUN 69 mg/dL (9.8-20.1) H 07/15/20 04:41 Creatinine 8.46 mg/dL (0.6-1.1) H 07/15/20 04:41 Glucose 128 mg/dL (70-105) H 07/15/20 04:41 Calcium 8.1 mg/dL (7.8-10.44) 07/15/20 04:41 Total Bilirubin 0.3 mg/dL (0.2-1.2) 07/08/20 20:09 AST 14 U/L (5-34) 07/08/20 20:09 ALT Less than 7 U/L (8-55) L 07/08/20 20:09 Alkaline Phosphatase 75 U/L (40-110) 07/08/20 20:09 Creatine Kinase 118 U/L (29-168) 07/08/20 20:09 Troponin I 0.022 ng/mL (< 0.028) 07/09/20 02:06 C-Reactive Protein 0.67 mg/dL (= or < 0.5) H 07/09/20 10:07 B-Natriuretic Peptide 1045.7 pg/mL (0-100) H 07/08/20 20:09 Serum Total Protein 6.1 g/dL (6.0-8.3) 07/08/20 20:09 Albumin 3.0 g/dL (3.5-5.0) L 07/15/20 04:41 Lipase 83 U/L (8-78) H 07/08/20 20:09 Urine Ketones Negative mg/dL (Negative) 07/08/20 20:58 Urine Blood 1+ (Negative) A 07/08/20 20:58 Urine Nitrite Negative (Negative) 07/08/20 20:58 Ur Leukocyte Esterase Negative Ananya/uL (Negative) 07/08/20 20:58 Urine RBC 0-3 HPF (0-3) 07/08/20 20:58 Urine WBC 0-3 HPF (0-3) 07/08/20 20:58 Ur Squamous Epith Cells 0-3 HPF (0-3) 07/08/20 20:58 Urine Bacteria Rare-Few HPF (None Seen) 07/08/20 20:58 Sodium 140 mmol/L (136-145) 07/15/20 04:41 Potassium 3.8 mmol/L (3.5-5.1) 07/15/20 04:41 Chloride 104 mmol/L (98-107) 07/15/20 04:41 Carbon Dioxide 21 mmol/L (22-29) L 07/15/20 04:41 Anion Gap 19 mmol/L (10-20) 07/15/20 04:41 BUN 69 mg/dL (9.8-20.1) H 07/15/20 04:41 Creatinine 8.46 mg/dL (0.6-1.1) H 07/15/20 04:41 Glucose 128 mg/dL (70-105) H 07/15/20 04:41 Calcium 8.1 mg/dL (7.8-10.44) 07/15/20 04:41 Phosphorus 5.5 mg/dL (2.3-4.7) H 07/15/20 04:41 Magnesium 1.7 mg/dL (1.6-2.6) 07/13/20 06:10 Albumin 3.0 g/dL (3.5-5.0) L 07/15/20 04:41 Nephrology AP PN - Plan ASSESSMENT: JOSE LUIS On CKD: Now ESRD. Acute kidney injury due to acute tubular injury. 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 Renal biopsy showed acute gtubular injury superimposed on nodular diabetic glomerulosclerosis and severe IFTA. Nephrotic syndrome due to diabetic nephropathy. Diabetes mellitus, on treatment. Hypertension, on treatment. Obesity. Hyperkalemia: Resolved Metabolic acidosis. Anemia Due to anemia of chronic kidney disease/chronic illness andIron deficiency HTN: Control is adequate PLAN For HD for 3 hours. See EMR for order. Continue antihypertensives and diuretic. Analgesic as needed.
[2020-07-16 08:04] LABS: Albumin 2.8 g/dL (3.5-5.0); Anion Gap 19 mmol/L (10-20); BUN (Urea Nitrogen) 46 mg/dL (9.8-20.1); BUN/Creatinine Ratio 7.22; Calc. Creatinine Clearance 13 mL/min (70-130); Calcium 7.7 mg/dL (7.8-10.44); Carbon Dioxide 19 mmol/L (22-29); Chloride 105 mmol/L (98-107); Glucose 101 mg/dL (70-105); Phosphorus 4.8 mg/dL (2.3-4.7); Sodium 139 mmol/L (136-145)
[2020-07-16] MEDS: Multivit, Therapeutic 1 TAB PO SCH (08:04)
[2020-07-16] MEDS: Famotidine 20 MG TAB PO SCH (08:04)
[2020-07-16] MEDS: NIFEdipine XL 60 MG TAB PO SCH ×2 (08:04→21:18)
[2020-07-16] MEDS: Labetalol 100 MG TAB PO SCH ×2 (08:04→21:17)
[2020-07-16] MEDS: Heparin 5,000 UNITS/ML VIAL SC SCH ×2 (08:04→21:20)
[2020-07-16] MEDS: Ferrous Sulfate 325 MG TAB PO SCH ×2 (08:04→21:19)
--- NOTE | 2020-07-16 11:10 | EKG ---
Test Reason : Blood Pressure : / mmHG Vent. Rate : 077 BPM Atrial Rate : 077 BPM P-R Int : 126 ms QRS Dur : 080 ms QT Int : 396 ms P-R-T Axes : 040 050 071 degrees QTc Int : 448 ms Normal sinus rhythm Possible Left atrial enlargement Cannot rule out Anterior infarct , age undetermined Abnormal ECG Confirmed by JOSESITO MARQUIS DO ([id number]), fan mail editor JULIO WARNER ([id number]) on 07/16/2020 11:10:15 AM Referred By: Confirmed By:JOSESITO MARQUIS DO
[2020-07-16] MEDS ORDERED: Heparin 10,000 UNITS/ 10 ML VIAL ONE (12:01)
[2020-07-16] MEDS: Torsemide 100 MG TAB PO SCH (12:51)
[2020-07-16] MEDS: Spironolactone 25 MG TAB PO SCH (12:51)
--- NOTE | 2020-07-16 19:30 | PDOC.HOSPP ---
- Subjective Encounter Date: 07/16/20 Encounter Time: 14:00 Subjective: F/u: JOSE LUIS This is a 50 year old woman who presented with nausea, vomiting and diarrhea and bilateral lower extremity swelling. She received dialysis today and is getting it tomorrow too She is urinating some. THe patient states she requests to do dialysis at home - Objective Vital Signs & Weight: Vital Signs (12 hours) Temp Pulse Resp BP Pulse Ox 07/16/20 16:00 98.4 F 88 18 139/65 94 L 07/16/20 12:15 98.3 F 88 18 172/74 H 94 L 07/16/20 08:10 98.0 F 85 20 139/74 95 Weight Admit Weight 173 lb 8 oz Weight 181 lb 3.2 oz I&O: 07/15/20 07/16/20 07/17/20 06:59 06:59 06:59 Intake Total 1605 550 Output Total 1000 1100 200 Balance 605 -550 -200 Result Diagrams: 07/15/20 04:41 07/16/20 07:41 Additional Labs: Accuchecks 07/16/20 07/16/20 07/16/20 16:00 12:18 05:56 POC Glucose 99 85 90 Hospitalist ROS - Review of Systems Constitutional: denies: fever, chills - Medication Medications: Active Medications Generic Name Dose Route Start Last Admin Trade Name Freq PRN Reason Stop Dose Admin Acetaminophen 650 mg 07/09/20 03:22 07/14/20 20:42 Acetaminophen 325 Mg Tab PO 650 mg Q4H PRN Administration Headache/Fever/Mild Pain (1-3) Acetaminophen/Codeine Phosphate 1 tab 07/15/20 16:06 07/16/20 05:54 Acetaminophen/Codeine 30-300mg Tablet PO 1 tab Q4H PRN Administration Moderate Pain (4-6) Atorvastatin Calcium 40 mg 07/09/20 21:00 07/15/20 21:19 Atorvastatin Calcium 40 Mg Tab PO 40 mg HS CHARLY Administration Epoetin Demetrio-epbx 10,000 unit 07/13/20 15:00 07/13/20 18:30 Epoetin Demetrio-Epbx (Esrd) 10,000 Unit/Ml Vial SC 10,000 unit Q7D CHARLY Administration Famotidine 20 mg 07/09/20 09:00 07/16/20 08:04 Famotidine 20 Mg Tab PO 20 mg DAILY CHARLY Administration Ferrous Sulfate 325 mg 07/09/20 09:00 07/16/20 08:04 Ferrous Sulfate 325 Mg Tab PO 325 mg BID CHARLY Administration Heparin Sodium (Porcine) 5,000 units 07/14/20 21:00 07/16/20 08:04 Heparin 5,000 Units/Ml Vial SC 5,000 units BID CHARLY Administration Hydralazine HCl 10 mg 07/15/20 21:47 07/15/20 22:55 Hydralazine 20 Mg/Ml Vial SLOW IVP 10 mg Q4H PRN Administration SBP > 180 and HR < 70 Insulin Human Lispro 0 units 07/09/20 04:12 07/13/20 11:54 Humalog 300 Units/3 Ml Vial SC 2 unit .MILD SLIDING SCALE PRN Administration Mild Correctional Scale Labetalol HCl 100 mg 07/11/20 09:00 07/16/20 08:04 Labetalol 100 Mg Tab PO 100 mg BID CHARLY Administration Multivitamins 1 tab 07/09/20 09:00 07/16/20 08:04 Multivit, Therapeutic 1 Tab PO 1 tab DAILY [facility] Administration Nifedipine 60 mg 07/10/20 21:00 07/16/20 08:04 Nifedipine Xl 60 Mg Tab PO 60 mg BID CHARLY Administration Ondansetron HCl 4 mg 07/15/20 21:51 07/16/20 01:16 Ondansetron Pf 4 Mg/2 Ml Vial IVP 4 mg Q6H PRN Administration Nausea/Vomiting Sodium Bicarbonate 1,300 mg 07/11/20 09:00 07/16/20 15:57 Sodium Bicarbonate Tab 325 Mg Tab PO 1,300 mg TID CHARLY Administration Sodium Chloride 10 ml 07/09/20 03:22 07/13/20 20:21 Flush - Normal Saline 10 Ml Syringe IVF 10 ml Q12HR PRN Administration Saline Flush Spironolactone 50 mg 07/14/20 08:00 07/16/20 12:51 Spironolactone 25 Mg Tab PO Not Given QAM-WM [facility] Torsemide 100 mg 07/15/20 09:00 07/16/20 12:51 Torsemide 100 Mg Tab PO Not Given DAILY CHARLY - Exam General Appearance: NAD, awake alert Eye: PERRL, anicteric sclera ENT: normocephalic atraumatic, no oropharyngeal lesions Neck: no JVD Heart: RRR, no murmur, no gallops, no rubs Heart - other findings: tunneled catheter in chest Respiratory: CTAB, no wheezes, no rales, no ronchi Gastrointestinal: soft, non-tender, non-distended, normal bowel sounds Gastrointestinal - other findings: PD catheter in place Extremities: no cyanosis, no clubbing, no edema Skin: normal turgor, no lesions, no rashes Hosp A/P - Plan F/u: JOSE LUIS This is a 50 year old woman who presented with nausea, vomiting and diarrhea and bilateral lower extremity swelling. 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 SHe will be transitioned to peritoneal dialysis catheter eventually, but will need outpatient dialysis hemo temporarily - case management consulted for outpatient dialysis. Hepatitis panel negative Anemia - likely from CKD - Hb 8, may qualify for EPO. Iron panel/B12/folate normal Hypertension - continue spironlactone, torsemide, nifedipine, labetalol Type II Diabetes - continue sliding scale insulin. Blood sugar 116 to 120
[2020-07-16 20:17] LABS: Anion Gap 14 mmol/L (10-20); BUN (Urea Nitrogen) 27 mg/dL (9.8-20.1); Calc. Creatinine Clearance 19 mL/min (70-130); Carbon Dioxide 27 mmol/L (22-29); Chloride 101 mmol/L (98-107); Glucose 126 mg/dL (70-105); Potassium 4.3 mmol/L (3.5-5.1); Sodium 138 mmol/L (136-145)
[2020-07-16] MEDS: Atorvastatin Calcium 40 MG TAB PO SCH (21:18)
[2020-07-17 06:43] LABS: Anion Gap 18 mmol/L (10-20); BUN (Urea Nitrogen) 32 mg/dL (9.8-20.1); BUN/Creatinine Ratio 6.53; Calc. Creatinine Clearance 17 mL/min (70-130); Calcium 7.9 mg/dL (7.8-10.44); Carbon Dioxide 22 mmol/L (22-29); Chloride 103 mmol/L (98-107); Glucose 103 mg/dL (70-105); Potassium 4.3 mmol/L (3.5-5.1); Sodium 139 mmol/L (136-145)
[2020-07-17 06:48] LABS: Hemoglobin 8.8 g/dL (12.0-16.0); Mean Corpuscular HGB CONC 30.9 g/dL (32.0-36.0); Mean Corpuscular Hemoglobin 29.7 pg (27.0-31.0); Mean Platelet Volume 10.7 fL (7.4-10.4); Platelet Count 122 thou/uL (130-400); RBC Distribution Width 14.2 % (11.5-14.5); Red Blood Cell (RBC) Count 2.97 mill/uL (4.20-5.40); White Blood Cell (WBC) Count 9.6 thou/uL (4.8-10.8)
[2020-07-17] MEDS: Ferrous Sulfate 325 MG TAB PO SCH ×2 (08:14→21:13)
[2020-07-17] MEDS: Famotidine 20 MG TAB PO SCH (08:14)
[2020-07-17] MEDS: Heparin 5,000 UNITS/ML VIAL SC SCH ×2 (08:14→21:12)
[2020-07-17] MEDS: Multivit, Therapeutic 1 TAB PO SCH (08:15)
[2020-07-17] MEDS: Sodium Bicarbonate Tab 325 MG TAB PO SCH ×2 (08:15→16:05)
[2020-07-17] MEDS: Spironolactone 25 MG TAB PO SCH (08:15)
[2020-07-17] MEDS: Torsemide 100 MG TAB PO SCH (08:16)
[2020-07-17] MEDS: Labetalol 100 MG TAB PO SCH ×2 (08:31→21:13)
--- NOTE | 2020-07-17 08:48 | PDOC.NEPPN ---
- Subjective Encounter Date: 07/17/20 Subjective: Feeling better. making urine still and edema is better. - Objective Vital Signs & Weight: Vital Signs (12 hours) Temp Pulse Resp BP BP Pulse Ox 07/17/20 08:31 88 07/17/20 07:56 98.8 F 88 18 142/75 H 93 L 07/17/20 05:00 98.3 F 79 20 140/65 07/17/20 00:00 98.3 F 88 19 143/65 H 07/16/20 21:18 92 157/68 H 07/16/20 21:17 92 157/68 H Weight Admit Weight 173 lb 8 oz Weight 181 lb 3.2 oz I&O: 07/16/20 07/17/20 07/18/20 06:59 06:59 06:59 Intake Total 550 0 Output Total 1100 200 Balance -550 -200 Result Diagrams: 07/17/20 06:20 07/17/20 06:20 Additional Labs: Accuchecks 07/17/20 07/16/20 07/16/20 05:57 21:24 16:00 POC Glucose 98 128 H 99 07/16/20 12:18 POC Glucose 85 Nephrology ROS - Medication Medications: Active Medications Generic Name Dose Route Start Last Admin Trade Name Freq PRN Reason Stop Dose Admin Acetaminophen 650 mg 07/09/20 03:22 07/14/20 20:42 Acetaminophen 325 Mg Tab PO 650 mg Q4H PRN Administration Headache/Fever/Mild Pain (1-3) Acetaminophen/Codeine Phosphate 1 tab 07/15/20 16:06 07/16/20 21:18 Acetaminophen/Codeine 30-300mg Tablet PO 1 tab Q4H PRN Administration Moderate Pain (4-6) Atorvastatin Calcium 40 mg 07/09/20 21:00 07/16/20 21:18 Atorvastatin Calcium 40 Mg Tab PO 40 mg HS CHARLY Administration Epoetin Demetrio-epbx 10,000 unit 07/13/20 15:00 07/13/20 18:30 Epoetin Demetrio-Epbx (Esrd) 10,000 Unit/Ml Vial SC 10,000 unit Q7D CHARLY Administration Famotidine 20 mg 07/09/20 09:00 07/17/20 08:14 Famotidine 20 Mg Tab PO Not Given DAILY CHARLY Ferrous Sulfate 325 mg 07/09/20 09:00 07/17/20 08:14 Ferrous Sulfate 325 Mg Tab PO Not Given BID [facility] Heparin Sodium (Porcine) 5,000 units 07/14/20 21:00 07/17/20 08:14 Heparin 5,000 Units/Ml Vial SC Not Given BID [facility] Hydralazine HCl 10 mg 07/15/20 21:47 07/15/20 22:55 Hydralazine 20 Mg/Ml Vial SLOW IVP 10 mg Q4H PRN Administration SBP > 180 and HR < 70 Insulin Human Lispro 0 units 07/09/20 04:12 07/13/20 11:54 Humalog 300 Units/3 Ml Vial SC 2 unit .MILD SLIDING SCALE PRN Administration Mild Correctional Scale Labetalol HCl 100 mg 07/11/20 09:00 07/17/20 08:31 Labetalol 100 Mg Tab PO 100 mg BID [facility] Administration Multivitamins 1 tab 07/09/20 09:00 07/17/20 08:15 Multivit, Therapeutic 1 Tab PO Not Given DAILY [facility] Nifedipine 60 mg 07/10/20 21:00 07/16/20 21:18 Nifedipine Xl 60 Mg Tab PO 60 mg BID [facility] Administration Ondansetron HCl 4 mg 07/15/20 21:51 07/16/20 01:16 Ondansetron Pf 4 Mg/2 Ml Vial IVP 4 mg Q6H PRN Administration Nausea/Vomiting Sodium Bicarbonate 1,300 mg 07/11/20 09:00 07/17/20 08:15 Sodium Bicarbonate Tab 325 Mg Tab PO Not Given TID [facility] Sodium Chloride 10 ml 07/09/20 03:22 07/13/20 20:21 Flush - Normal Saline 10 Ml Syringe IVF 10 ml Q12HR PRN Administration Saline Flush Spironolactone 50 mg 07/14/20 08:00 07/17/20 08:15 Spironolactone 25 Mg Tab PO Not Given QAM-WM [facility] Torsemide 100 mg 07/15/20 09:00 07/17/20 08:16 Torsemide 100 Mg Tab PO Not Given DAILY CHARLY - Exam General Appearance: awake alert Eye: anicteric sclera ENT: normocephalic atraumatic Neck: supple, symmetric Respiratory: no wheezes, no rales, no ronchi, no tachypnea Cardiovascular: RRR Gastrointestinal: non-tender, non-distended, normal bowel sounds Extremities - other findings: edema of the extremities Neurological: CN's grossly intact, no focal deficits PSYCH: A&O x 3 Nephrology Results - Labs Result Diagrams: 07/17/20 06:20 07/17/20 06:20 Lab results: WBC 9.6 thou/uL (4.8-10.8) 07/17/20 06:20 Hgb 8.8 g/dL (12.0-16.0) L 07/17/20 06:20 Hct 28.5 % (36.0-47.0) L 07/17/20 06:20 MCV 96.0 fL (78.0-98.0) 07/17/20 06:20 Plt Count 122 thou/uL (130-400) L 07/17/20 06:20 Neutrophils % 74.4 % (42.0-75.0) 07/15/20 04:41 ESR Westergren 22 mm/hr (Less than 30) 07/09/20 09:11 Sodium 139 mmol/L (136-145) 07/17/20 06:20 Potassium 4.3 mmol/L (3.5-5.1) 07/17/20 06:20 Chloride 103 mmol/L (98-107) 07/17/20 06:20 Carbon Dioxide 22 mmol/L (22-29) 07/17/20 06:20 BUN 32 mg/dL (9.8-20.1) H 07/17/20 06:20 Creatinine 4.90 mg/dL (0.6-1.1) H 07/17/20 06:20 Glucose 103 mg/dL (70-105) 07/17/20 06:20 Calcium 7.9 mg/dL (7.8-10.44) 07/17/20 06:20 Total Bilirubin 0.3 mg/dL (0.2-1.2) 07/08/20 20:09 AST 14 U/L (5-34) 07/08/20 20:09 ALT Less than 7 U/L (8-55) L 07/08/20 20:09 Alkaline Phosphatase 75 U/L (40-110) 07/08/20 20:09 Creatine Kinase 118 U/L (29-168) 07/08/20 20:09 Troponin I 0.022 ng/mL (< 0.028) 07/09/20 02:06 C-Reactive Protein 0.67 mg/dL (= or < 0.5) H 07/09/20 10:07 B-Natriuretic Peptide 1045.7 pg/mL (0-100) H 07/08/20 20:09 Serum Total Protein 6.1 g/dL (6.0-8.3) 07/08/20 20:09 Albumin 3.0 g/dL (3.5-5.0) L 07/17/20 06:20 Lipase 83 U/L (8-78) H 07/08/20 20:09 Urine Ketones Negative mg/dL (Negative) 07/08/20 20:58 Urine Blood 1+ (Negative) A 07/08/20 20:58 Urine Nitrite Negative (Negative) 07/08/20 20:58 Ur Leukocyte Esterase Negative Ananya/uL (Negative) 07/08/20 20:58 Urine RBC 0-3 HPF (0-3) 07/08/20 20:58 Urine WBC 0-3 HPF (0-3) 07/08/20 20:58 Ur Squamous Epith Cells 0-3 HPF (0-3) 07/08/20 20:58 Urine Bacteria Rare-Few HPF (None Seen) 07/08/20 20:58 Sodium 139 mmol/L (136-145) 07/17/20 06:20 Potassium 4.3 mmol/L (3.5-5.1) 07/17/20 06:20 Chloride 103 mmol/L (98-107) 07/17/20 06:20 Carbon Dioxide 22 mmol/L (22-29) 07/17/20 06:20 Anion Gap 18 mmol/L (10-20) 07/17/20 06:20 BUN 32 mg/dL (9.8-20.1) H 07/17/20 06:20 Creatinine 4.90 mg/dL (0.6-1.1) H 07/17/20 06:20 Glucose 103 mg/dL (70-105) 07/17/20 06:20 Calcium 7.9 mg/dL (7.8-10.44) 07/17/20 06:20 Phosphorus 4.0 mg/dL (2.3-4.7) 07/17/20 06:20 Magnesium 1.7 mg/dL (1.6-2.6) 07/13/20 06:10 Albumin 3.0 g/dL (3.5-5.0) L 07/17/20 06:20 Nephrology AP PN - Plan ASSESSMENT: JOSE LUIS On CKD: Acute kidney injury due to acute tubular injury. 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 Renal biopsy showed acute gtubular injury superimposed on nodular diabetic glomerulosclerosis and severe IFTA. Now deemed ESRD and on HD. Nephrotic syndrome due to diabetic nephropathy. Diabetes mellitus, on treatment. Hypertension, on treatment. Obesity. Hyperkalemia: Resolved Metabolic acidosis. Anemia Due to anemia of chronic kidney disease/chronic illness andIron deficiency HTN: Control is adequate PLAN HD for 4 hours today with UF as tolerated. See EMR for order. Continue antihypertensives and diuretic. DC oral sodium bicarbonate. Monitor BP and adjust antihypertensives to get adequate BP control Continue NIESHA Analgesic as needed.
[2020-07-17] MEDS: NIFEdipine XL 60 MG TAB PO SCH ×2 (09:07→21:13)
[2020-07-17] MEDS ORDERED: Heparin 10,000 UNITS/ 10 ML VIAL ONE (12:00)
[2020-07-17] MEDS: Acetaminophen/Codeine 30-300mg Tablet PO PRN (18:01)
--- NOTE | 2020-07-17 19:05 | PDOC.HOSPP ---
- Subjective Encounter Date: 07/17/20 Encounter Time: 15:00 Subjective: F/u: JOSE LUIS, newly diagnosed ESRD The patient has no abdominal pain, nausea or vomiting. She complains of discomfort from her tunneled catheter in her neck. Discussed that she needs temporary hemodialysis for a few weeks before starting peritoneal dialysis - Objective Vital Signs & Weight: Vital Signs (12 hours) Temp Pulse Resp BP Pulse Ox 07/17/20 16:00 98.2 F 91 18 152/66 H 97 07/17/20 14:35 98.8 F 81 20 148/63 H 100 07/17/20 09:07 88 07/17/20 08:31 88 07/17/20 07:56 98.8 F 88 18 142/75 H 93 L Weight Admit Weight 173 lb 8 oz Weight 181 lb 3.2 oz I&O: 07/16/20 07/17/20 07/18/20 06:59 06:59 06:59 Intake Total 550 0 Output Total 1100 200 Balance -550 -200 Result Diagrams: 07/17/20 06:20 07/17/20 06:20 Additional Labs: Accuchecks 07/17/20 07/17/20 07/16/20 17:55 05:57 21:24 POC Glucose 128 H 98 128 H Hospitalist ROS - Review of Systems Constitutional: denies: fever, chills - Medication Medications: Active Medications Generic Name Dose Route Start Last Admin Trade Name Freq PRN Reason Stop Dose Admin Acetaminophen 650 mg 07/09/20 03:22 07/14/20 20:42 Acetaminophen 325 Mg Tab PO 650 mg Q4H PRN Administration Headache/Fever/Mild Pain (1-3) Acetaminophen/Codeine Phosphate 1 tab 07/15/20 16:06 07/17/20 18:01 Acetaminophen/Codeine 30-300mg Tablet PO 1 tab Q4H PRN Administration Moderate Pain (4-6) Atorvastatin Calcium 40 mg 07/09/20 21:00 07/16/20 21:18 Atorvastatin Calcium 40 Mg Tab PO 40 mg HS CHARLY Administration Epoetin Demetrio-epbx 10,000 unit 07/13/20 15:00 07/13/20 18:30 Epoetin Demetrio-Epbx (Esrd) 10,000 Unit/Ml Vial SC 10,000 unit Q7D CHARLY Administration Famotidine 20 mg 07/09/20 09:00 07/17/20 08:14 Famotidine 20 Mg Tab PO Not Given DAILY [facility] Ferrous Sulfate 325 mg 07/09/20 09:00 07/17/20 08:14 Ferrous Sulfate 325 Mg Tab PO Not Given BID [facility] Heparin Sodium (Porcine) 5,000 units 07/14/20 21:00 07/17/20 08:14 Heparin 5,000 Units/Ml Vial SC Not Given BID [facility] Hydralazine HCl 10 mg 07/15/20 21:47 07/15/20 22:55 Hydralazine 20 Mg/Ml Vial SLOW IVP 10 mg Q4H PRN Administration SBP > 180 and HR < 70 Insulin Human Lispro 0 units 07/09/20 04:12 07/13/20 11:54 Humalog 300 Units/3 Ml Vial SC 2 unit .MILD SLIDING SCALE PRN Administration Mild Correctional Scale Labetalol HCl 100 mg 07/11/20 09:00 07/17/20 08:31 Labetalol 100 Mg Tab PO 100 mg BID CHARLY Administration Multivitamins 1 tab 07/09/20 09:00 07/17/20 08:15 Multivit, Therapeutic 1 Tab PO Not Given DAILY [facility] Nifedipine 60 mg 07/10/20 21:00 07/17/20 09:07 Nifedipine Xl 60 Mg Tab PO Not Given BID [facility] Ondansetron HCl 4 mg 07/15/20 21:51 07/16/20 01:16 Ondansetron Pf 4 Mg/2 Ml Vial IVP 4 mg Q6H PRN Administration Nausea/Vomiting Sodium Chloride 10 ml 07/09/20 03:22 07/13/20 20:21 Flush - Normal Saline 10 Ml Syringe IVF 10 ml Q12HR PRN Administration Saline Flush Spironolactone 50 mg 07/14/20 08:00 07/17/20 08:15 Spironolactone 25 Mg Tab PO Not Given QAM-WM [facility] Torsemide 100 mg 07/15/20 09:00 07/17/20 08:16 Torsemide 100 Mg Tab PO Not Given DAILY CHARLY - Exam General Appearance: NAD, awake alert Eye: PERRL, anicteric sclera ENT: normocephalic atraumatic, no oropharyngeal lesions Neck: no JVD Neck - other findings: palpable catheter tunneled in neck Heart: RRR, no murmur, no gallops, no rubs Respiratory: CTAB, no wheezes, no rales, no ronchi Gastrointestinal: soft, non-tender, non-distended, normal bowel sounds Gastrointestinal - other findings: PD catheter in belly Extremities: no cyanosis, no clubbing, 1+ LE edema Hosp A/P - Plan F/u: JOSE LUIS This is a 50 year old woman who presented with nausea, vomiting and diarrhea and bilateral lower extremity swelling. 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 SHe will be transitioned to peritoneal dialysis catheter eventually, but will need outpatient dialysis hemo temporarily - case management consulted for outpatient dialysis. Hepatitis panel negative. Will add quantiferon TB test in anticipation of outpatient dialysis needing it Anemia - likely from CKD - Hb 8, may qualify for EPO. Iron panel/B12/folate normal Hypertension - continue spironlactone, torsemide, nifedipine, labetalol Type II Diabetes - continue sliding scale insulin. Blood sugar 116 to 120
[2020-07-17] MEDS: Atorvastatin Calcium 40 MG TAB PO SCH (21:13)
[2020-07-18] MEDS ORDERED: cloNIDine 0.1 MG TAB PO PRN (01:35)
[2020-07-18] MEDS ORDERED: hydrALAZINE 10 MG TAB PO SCH (01:45)
[2020-07-18 06:05] LABS: Albumin 2.6 g/dL (3.5-5.0); Anion Gap 14 mmol/L (10-20); BUN (Urea Nitrogen) 20 mg/dL (9.8-20.1); Calc. Creatinine Clearance 26 mL/min (70-130); Calcium 7.6 mg/dL (7.8-10.44); Carbon Dioxide 25 mmol/L (22-29); Chloride 106 mmol/L (98-107); Glucose 112 mg/dL (70-105); Phosphorus 3.5 mg/dL (2.3-4.7); Potassium 4.2 mmol/L (3.5-5.1); Sodium 141 mmol/L (136-145)
--- NOTE | 2020-07-18 08:17 | PDOC.NEPPN ---
- Subjective Encounter Date: 07/18/20 Subjective: No new problem. Feeling better. Ambulating more. Last HD was 07/17/2020. - Objective Vital Signs & Weight: Vital Signs (12 hours) Temp Pulse Resp BP BP Pulse Ox 07/18/20 08:00 98.9 F 85 20 180/80 H 97 07/18/20 05:50 98.9 F 84 16 160/82 H 07/18/20 02:50 180/78 H 07/18/20 01:53 191/88 H 07/18/20 01:20 85 191/88 H 07/18/20 00:55 90 196/80 H 07/18/20 00:29 98.4 F 88 16 192/85 H 96 07/17/20 21:13 87 172/72 H Weight Admit Weight 173 lb 8 oz Weight 181 lb 3.2 oz I&O: 07/17/20 07/18/20 07/19/20 06:59 06:59 06:59 Intake Total 0 90 Output Total 200 Balance -200 90 Result Diagrams: 07/17/20 06:20 07/18/20 05:44 Additional Labs: Accuchecks 07/18/20 07/17/20 07/17/20 05:50 21:15 17:55 POC Glucose 109 H 127 H 128 H Nephrology ROS - Medication Medications: Active Medications Generic Name Dose Route Start Last Admin Trade Name Freq PRN Reason Stop Dose Admin Acetaminophen 650 mg 07/09/20 03:22 07/14/20 20:42 Acetaminophen 325 Mg Tab PO 650 mg Q4H PRN Administration Headache/Fever/Mild Pain (1-3) Acetaminophen/Codeine Phosphate 1 tab 07/15/20 16:06 07/17/20 18:01 Acetaminophen/Codeine 30-300mg Tablet PO 1 tab Q4H PRN Administration Moderate Pain (4-6) Atorvastatin Calcium 40 mg 07/09/20 21:00 07/17/20 21:13 Atorvastatin Calcium 40 Mg Tab PO 40 mg HS CHARLY Administration Clonidine 0.1 mg 07/18/20 01:35 07/18/20 01:53 Clonidine 0.1 Mg Tab PO 0.1 mg Q4H PRN Administration SBP Greater Than 180 Epoetin Demetrio-epbx 10,000 unit 07/13/20 15:00 07/13/20 18:30 Epoetin Demetrio-Epbx (Esrd) 10,000 Unit/Ml Vial SC 10,000 unit Q7D CHARLY Administration Famotidine 20 mg 07/09/20 09:00 07/17/20 08:14 Famotidine 20 Mg Tab PO Not Given DAILY CHARLY Ferrous Sulfate 325 mg 07/09/20 09:00 07/17/20 21:13 Ferrous Sulfate 325 Mg Tab PO 325 mg BID CHARLY Administration Heparin Sodium (Porcine) 5,000 units 07/14/20 21:00 07/17/20 21:12 Heparin 5,000 Units/Ml Vial SC 5,000 units BID CHARLY Administration Hydralazine HCl 10 mg 07/15/20 21:47 07/15/20 22:55 Hydralazine 20 Mg/Ml Vial SLOW IVP 10 mg Q4H PRN Administration SBP > 180 and HR < 70 Insulin Human Lispro 0 units 07/09/20 04:12 07/13/20 11:54 Humalog 300 Units/3 Ml Vial SC 2 unit .MILD SLIDING SCALE PRN Administration Mild Correctional Scale Multivitamins 1 tab 07/09/20 09:00 07/17/20 08:15 Multivit, Therapeutic 1 Tab PO Not Given DAILY [facility] Ondansetron HCl 4 mg 07/15/20 21:51 07/16/20 01:16 Ondansetron Pf 4 Mg/2 Ml Vial IVP 4 mg Q6H PRN Administration Nausea/Vomiting Sodium Chloride 10 ml 07/09/20 03:22 07/13/20 20:21 Flush - Normal Saline 10 Ml Syringe IVF 10 ml Q12HR PRN Administration Saline Flush Spironolactone 50 mg 07/14/20 08:00 07/17/20 08:15 Spironolactone 25 Mg Tab PO Not Given QAM-WM [facility] Torsemide 100 mg 07/15/20 09:00 07/17/20 08:16 Torsemide 100 Mg Tab PO Not Given DAILY CHARLY - Exam General Appearance: awake alert Eye: anicteric sclera ENT: normocephalic atraumatic, moist mucosa Neck: symmetric Respiratory: no wheezes, no rales, no ronchi, normal chest expansion, no tac hypnea Cardiovascular: RRR Gastrointestinal: soft, non-tender, non-distended, normal bowel sounds Extremities: 2+ LE edema Neurological: CN's grossly intact, no focal deficits, vision deficit PSYCH: A&O x 3 Nephrology Results - Labs Result Diagrams: 07/17/20 06:20 07/18/20 05:44 Lab results: WBC 9.6 thou/uL (4.8-10.8) 07/17/20 06:20 Hgb 8.8 g/dL (12.0-16.0) L 07/17/20 06:20 Hct 28.5 % (36.0-47.0) L 07/17/20 06:20 MCV 96.0 fL (78.0-98.0) 07/17/20 06:20 Plt Count 122 thou/uL (130-400) L 07/17/20 06:20 Neutrophils % 74.4 % (42.0-75.0) 07/15/20 04:41 ESR Westergren 22 mm/hr (Less than 30) 07/09/20 09:11 Sodium 141 mmol/L (136-145) 07/18/20 05:44 Potassium 4.2 mmol/L (3.5-5.1) 07/18/20 05:44 Chloride 106 mmol/L (98-107) 07/18/20 05:44 Carbon Dioxide 25 mmol/L (22-29) 07/18/20 05:44 BUN 20 mg/dL (9.8-20.1) 07/18/20 05:44 Creatinine 3.28 mg/dL (0.6-1.1) H 07/18/20 05:44 Glucose 112 mg/dL (70-105) H 07/18/20 05:44 Calcium 7.6 mg/dL (7.8-10.44) L 07/18/20 05:44 Total Bilirubin 0.3 mg/dL (0.2-1.2) 07/08/20 20:09 AST 14 U/L (5-34) 07/08/20 20:09 ALT Less than 7 U/L (8-55) L 07/08/20 20:09 Alkaline Phosphatase 75 U/L (40-110) 07/08/20 20:09 Creatine Kinase 118 U/L (29-168) 07/08/20 20:09 Troponin I 0.022 ng/mL (< 0.028) 07/09/20 02:06 C-Reactive Protein 0.67 mg/dL (= or < 0.5) H 07/09/20 10:07 B-Natriuretic Peptide 1045.7 pg/mL (0-100) H 07/08/20 20:09 Serum Total Protein 6.1 g/dL (6.0-8.3) 07/08/20 20:09 Albumin 2.6 g/dL (3.5-5.0) L 07/18/20 05:44 Lipase 83 U/L (8-78) H 07/08/20 20:09 Urine Ketones Negative mg/dL (Negative) 07/08/20 20:58 Urine Blood 1+ (Negative) A 07/08/20 20:58 Urine Nitrite Negative (Negative) 07/08/20 20:58 Ur Leukocyte Esterase Negative Ananya/uL (Negative) 07/08/20 20:58 Urine RBC 0-3 HPF (0-3) 07/08/20 20:58 Urine WBC 0-3 HPF (0-3) 07/08/20 20:58 Ur Squamous Epith Cells 0-3 HPF (0-3) 07/08/20 20:58 Urine Bacteria Rare-Few HPF (None Seen) 07/08/20 20:58 Sodium 141 mmol/L (136-145) 07/18/20 05:44 Potassium 4.2 mmol/L (3.5-5.1) 07/18/20 05:44 Chloride 106 mmol/L (98-107) 07/18/20 05:44 Carbon Dioxide 25 mmol/L (22-29) 07/18/20 05:44 Anion Gap 14 mmol/L (10-20) 07/18/20 05:44 BUN 20 mg/dL (9.8-20.1) 07/18/20 05:44 Creatinine 3.28 mg/dL (0.6-1.1) H 07/18/20 05:44 Glucose 112 mg/dL (70-105) H 07/18/20 05:44 Calcium 7.6 mg/dL (7.8-10.44) L 07/18/20 05:44 Phosphorus 3.5 mg/dL (2.3-4.7) 07/18/20 05:44 Magnesium 1.7 mg/dL (1.6-2.6) 07/13/20 06:10 Albumin 2.6 g/dL (3.5-5.0) L 07/18/20 05:44 Nephrology AP PN - Plan ASSESSMENT: JOSE LUIS On CKD: Now deemed ESRD and on HD. Acute kidney injury due to acute tubular injury. 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 Renal biopsy showed acute gtubular injury superimposed on nodular diabetic glomerulosclerosis and severe IFTA. Nephrotic syndrome due to diabetic nephropathy. Anasarca: Improving with diuretic and HD with UF Diabetes mellitus, on treatment. Hypertension. Control is suboptimal Obesity. Hyperkalemia: Resolved Metabolic acidosis. Anemia Due to anemia of chronic kidney disease/chronic illness andIron deficiency HTN: Control is adequate PLAN Increase labetalol to 200 bid Continue Nifedipine and diuretic. No HD today. Will plan on dialyzing patient tomorrow Monitor BP and adjust antihypertensives to get adequate BP control Continue NIESHA Analgesic as needed. Can be discharged once outpatient HD is concluded. D/W case management.
[2020-07-18] MEDS: Spironolactone 25 MG TAB PO SCH (08:45)
[2020-07-18] MEDS: Ferrous Sulfate 325 MG TAB PO SCH ×2 (08:46→22:02)
[2020-07-18] MEDS: Heparin 5,000 UNITS/ML VIAL SC SCH ×2 (08:46→22:03)
[2020-07-18] MEDS: Labetalol 100 MG TAB PO SCH ×2 (08:46→22:02)
[2020-07-18] MEDS: Famotidine 20 MG TAB PO SCH (08:46)
[2020-07-18] MEDS: Multivit, Therapeutic 1 TAB PO SCH (08:46)
[2020-07-18] MEDS: Torsemide 100 MG TAB PO SCH (08:46)
[2020-07-18] MEDS ORDERED: NIFEdipine XL 30 MG TAB PO SCH (09:00)
[2020-07-18] MEDS: Amlodipine 5 MG TAB PO SCH (10:09)
[2020-07-18] MEDS: NIFEdipine XL 60 MG TAB PO SCH ×2 (10:25→22:10)
[2020-07-18] MEDS: HumaLOG 300 UNITS/3 ML VIAL SC PRN (11:50)
--- NOTE | 2020-07-18 17:15 | PDOC.HOSPP ---
- Subjective Encounter Date: 07/18/20 Encounter Time: 16:00 Subjective: F/u: kidney disease The patient has no complaints, no nausea or vomiting. Still awaiting outpatient dialysis placement - Objective Vital Signs & Weight: Vital Signs (12 hours) Temp Pulse Resp BP Pulse Ox 07/18/20 11:44 97.9 F 79 20 129/57 L 99 07/18/20 08:00 98.9 F 85 20 180/80 H 97 07/18/20 05:50 98.9 F 84 16 160/82 H Weight Admit Weight 173 lb 8 oz Weight 181 lb 3.2 oz I&O: 07/17/20 07/18/20 07/19/20 06:59 06:59 06:59 Intake Total 0 90 Output Total 200 Balance -200 90 Result Diagrams: 07/17/20 06:20 07/18/20 05:44 Additional Labs: Accuchecks 07/18/20 07/18/20 07/18/20 16:36 11:28 05:50 POC Glucose 96 171 H 109 H 07/17/20 07/17/20 07/17/20 21:15 17:55 14:09 POC Glucose 127 H 128 H 81 07/15/20 21:35 POC Glucose 100 Hospitalist ROS - Review of Systems Constitutional: denies: fever, chills - Medication Medications: Active Medications Generic Name Dose Route Start Last Admin Trade Name Freq PRN Reason Stop Dose Admin Acetaminophen 650 mg 07/09/20 03:22 07/14/20 20:42 Acetaminophen 325 Mg Tab PO 650 mg Q4H PRN Administration Headache/Fever/Mild Pain (1-3) Acetaminophen/Codeine Phosphate 1 tab 07/15/20 16:06 07/17/20 18:01 Acetaminophen/Codeine 30-300mg Tablet PO 1 tab Q4H PRN Administration Moderate Pain (4-6) Amlodipine Besylate 5 mg 07/18/20 09:00 07/18/20 10:09 Amlodipine 5 Mg Tab PO 5 mg DAILY CHARLY Administration Atorvastatin Calcium 40 mg 07/09/20 21:00 07/17/20 21:13 Atorvastatin Calcium 40 Mg Tab PO 40 mg HS CHARLY Administration Clonidine 0.1 mg 07/18/20 01:35 07/18/20 01:53 Clonidine 0.1 Mg Tab PO 0.1 mg Q4H PRN Administration SBP Greater Than 180 Epoetin Demetrio-epbx 10,000 unit 07/13/20 15:00 07/13/20 18:30 Epoetin Demetrio-Epbx (Esrd) 10,000 Unit/Ml Vial SC 10,000 unit Q7D CHARLY Administration Famotidine 20 mg 07/09/20 09:00 07/18/20 08:46 Famotidine 20 Mg Tab PO 20 mg DAILY CHARLY Administration Ferrous Sulfate 325 mg 07/09/20 09:00 07/18/20 08:46 Ferrous Sulfate 325 Mg Tab PO 325 mg BID CHARLY Administration Heparin Sodium (Porcine) 5,000 units 07/14/20 21:00 07/18/20 08:46 Heparin 5,000 Units/Ml Vial SC 5,000 units BID CHARLY Administration Hydralazine HCl 10 mg 07/15/20 21:47 07/15/20 22:55 Hydralazine 20 Mg/Ml Vial SLOW IVP 10 mg Q4H PRN Administration SBP > 180 and HR < 70 Insulin Human Lispro 0 units 07/09/20 04:12 07/18/20 11:50 Humalog 300 Units/3 Ml Vial SC 2 unit .MILD SLIDING SCALE PRN Administration Mild Correctional Scale Labetalol HCl 200 mg 07/18/20 09:00 07/18/20 08:46 Labetalol 100 Mg Tab PO 200 mg BID [facility] Administration Multivitamins 1 tab 07/09/20 09:00 07/18/20 08:46 Multivit, Therapeutic 1 Tab PO 1 tab DAILY CHARLY Administration Nifedipine 60 mg 07/18/20 09:00 07/18/20 10:25 Nifedipine Xl 60 Mg Tab PO Not Given BID [facility] Ondansetron HCl 4 mg 07/15/20 21:51 07/16/20 01:16 Ondansetron Pf 4 Mg/2 Ml Vial IVP 4 mg Q6H PRN Administration Nausea/Vomiting Sodium Chloride 10 ml 07/09/20 03:22 07/13/20 20:21 Flush - Normal Saline 10 Ml Syringe IVF 10 ml Q12HR PRN Administration Saline Flush Spironolactone 50 mg 07/14/20 08:00 07/18/20 08:45 Spironolactone 25 Mg Tab PO 50 mg QAM-WM CHARLY Administration Torsemide 100 mg 07/15/20 09:00 07/18/20 08:46 Torsemide 100 Mg Tab PO 100 mg DAILY CHARLY Administration - Exam General Appearance: NAD, awake alert Eye: PERRL, anicteric sclera ENT: normocephalic atraumatic, no oropharyngeal lesions Neck: no JVD Heart: RRR, no murmur, no gallops, no rubs Respiratory: CTAB, no wheezes, no ronchi Gastrointestinal: soft, non-tender, non-distended, normal bowel sounds Extremities: no cyanosis, no clubbing, no edema Skin: normal turgor, no lesions, no rashes Hosp A/P - Plan F/u: JOSE LUIS This is a 50 year old woman who presented with nausea, vomiting and diarrhea and bilateral lower extremity swelling. 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 SHe will be transitioned to peritoneal dialysis catheter eventually, but will need outpatient dialysis hemo temporarily - case management consulted for outpatient dialysis, still pending placement. Hepatitis panel negative. Quantiferon test is pending Anemia - likely from CKD - Hb 8, may qualify for EPO. Iron panel/B12/folate normal Hypertension - continue spironlactone, torsemide, nifedipine, labetalol. Labetalol increased to 200 mg bid with improvement in blood pressure to 120 Type II Diabetes - continue sliding scale insulin. Blood sugar 96 to 127
[2020-07-18] MEDS: Acetaminophen/Codeine 30-300mg Tablet PO PRN (22:01)
[2020-07-18] MEDS: Atorvastatin Calcium 40 MG TAB PO SCH (22:03)
--- NOTE | 2020-07-19 08:49 | PDOC.NEPPN ---
- Subjective Encounter Date: 07/19/20 Subjective: No new problem. 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 - Objective Vital Signs & Weight: Vital Signs (12 hours) Temp Pulse Resp BP BP Pulse Ox 07/19/20 08:00 98.7 F 84 20 143/65 H 97 07/19/20 05:45 98.8 F 83 14 157/72 H 07/19/20 00:10 98.4 F 80 14 133/62 07/18/20 22:10 81 120/88 07/18/20 22:02 81 120/88 Weight Admit Weight 173 lb 8 oz Weight 181 lb 3.2 oz I&O: 07/18/20 07/19/20 07/20/20 06:59 06:59 06:59 Intake Total 90 120 Balance 90 120 Result Diagrams: 07/17/20 06:20 07/19/20 07:05 Additional Labs: Accuchecks 07/19/20 07/18/20 07/18/20 05:44 21:09 16:36 POC Glucose 88 135 H 96 07/18/20 07/17/20 07/15/20 11:28 14:09 21:35 POC Glucose 171 H 81 100 Nephrology ROS - Medication Medications: Active Medications Generic Name Dose Route Start Last Admin Trade Name Freq PRN Reason Stop Dose Admin Acetaminophen 650 mg 07/09/20 03:22 07/14/20 20:42 Acetaminophen 325 Mg Tab PO 650 mg Q4H PRN Administration Headache/Fever/Mild Pain (1-3) Acetaminophen/Codeine Phosphate 1 tab 07/15/20 16:06 07/18/20 22:01 Acetaminophen/Codeine 30-300mg Tablet PO 1 tab Q4H PRN Administration Moderate Pain (4-6) Amlodipine Besylate 5 mg 07/18/20 09:00 07/18/20 10:09 Amlodipine 5 Mg Tab PO 5 mg DAILY CHARLY Administration Atorvastatin Calcium 40 mg 07/09/20 21:00 07/18/20 22:03 Atorvastatin Calcium 40 Mg Tab PO 40 mg HS CHARLY Administration Clonidine 0.1 mg 07/18/20 01:35 07/18/20 01:53 Clonidine 0.1 Mg Tab PO 0.1 mg Q4H PRN Administration SBP Greater Than 180 Epoetin Demetrio-epbx 10,000 unit 07/13/20 15:00 07/13/20 18:30 Epoetin Demetrio-Epbx (Esrd) 10,000 Unit/Ml Vial SC 10,000 unit Q7D CHARLY Administration Famotidine 20 mg 07/09/20 09:00 07/18/20 08:46 Famotidine 20 Mg Tab PO 20 mg DAILY CHARLY Administration Ferrous Sulfate 325 mg 07/09/20 09:00 07/18/20 22:02 Ferrous Sulfate 325 Mg Tab PO 325 mg BID CHARLY Administration Heparin Sodium (Porcine) 5,000 units 07/14/20 21:00 07/18/20 22:03 Heparin 5,000 Units/Ml Vial SC 5,000 units BID CHARLY Administration Hydralazine HCl 10 mg 07/15/20 21:47 07/15/20 22:55 Hydralazine 20 Mg/Ml Vial SLOW IVP 10 mg Q4H PRN Administration SBP > 180 and HR < 70 Insulin Human Lispro 0 units 07/09/20 04:12 07/18/20 11:50 Humalog 300 Units/3 Ml Vial SC 2 unit .MILD SLIDING SCALE PRN Administration Mild Correctional Scale Labetalol HCl 200 mg 07/18/20 09:00 07/18/20 22:02 Labetalol 100 Mg Tab PO 200 mg BID CHARLY Administration Multivitamins 1 tab 07/09/20 09:00 07/18/20 08:46 Multivit, Therapeutic 1 Tab PO 1 tab DAILY CHARLY Administration Nifedipine 60 mg 07/18/20 09:00 07/18/20 22:10 Nifedipine Xl 60 Mg Tab PO 60 mg BID CHARLY Administration Ondansetron HCl 4 mg 07/15/20 21:51 07/16/20 01:16 Ondansetron Pf 4 Mg/2 Ml Vial IVP 4 mg Q6H PRN Administration Nausea/Vomiting Sodium Chloride 10 ml 07/09/20 03:22 07/13/20 20:21 Flush - Normal Saline 10 Ml Syringe IVF 10 ml Q12HR PRN Administration Saline Flush Spironolactone 50 mg 07/14/20 08:00 07/18/20 08:45 Spironolactone 25 Mg Tab PO 50 mg QAM-WM CHARLY Administration Torsemide 100 mg 07/15/20 09:00 07/18/20 08:46 Torsemide 100 Mg Tab PO 100 mg DAILY CHARLY Administration - Exam General Appearance: awake alert Eye: anicteric sclera ENT: normocephalic atraumatic, moist mucosa Neck: supple, symmetric Respiratory: no wheezes, no rales, no ronchi, normal chest expansion Cardiovascular: RRR Gastrointestinal: soft, non-tender, non-distended, normal bowel sounds Extremities: 2+ LE edema Neurological: CN's grossly intact PSYCH: A&O x 3 Nephrology Results - Labs Result Diagrams: 07/17/20 06:20 07/19/20 07:05 Lab results: WBC 9.6 thou/uL (4.8-10.8) 07/17/20 06:20 Hgb 8.8 g/dL (12.0-16.0) L 07/17/20 06:20 Hct 28.5 % (36.0-47.0) L 07/17/20 06:20 MCV 96.0 fL (78.0-98.0) 07/17/20 06:20 Plt Count 122 thou/uL (130-400) L 07/17/20 06:20 Neutrophils % 74.4 % (42.0-75.0) 07/15/20 04:41 ESR Westergren 22 mm/hr (Less than 30) 07/09/20 09:11 Sodium 141 mmol/L (136-145) 07/18/20 05:44 Potassium 4.2 mmol/L (3.5-5.1) 07/18/20 05:44 Chloride 106 mmol/L (98-107) 07/18/20 05:44 Carbon Dioxide 25 mmol/L (22-29) 07/18/20 05:44 BUN 20 mg/dL (9.8-20.1) 07/18/20 05:44 Creatinine 4.21 mg/dL (0.6-1.1) H 07/19/20 07:05 Glucose 112 mg/dL (70-105) H 07/18/20 05:44 Calcium 7.6 mg/dL (7.8-10.44) L 07/18/20 05:44 Total Bilirubin 0.3 mg/dL (0.2-1.2) 07/08/20 20:09 AST 14 U/L (5-34) 07/08/20 20:09 ALT Less than 7 U/L (8-55) L 07/08/20 20:09 Alkaline Phosphatase 75 U/L (40-110) 07/08/20 20:09 Creatine Kinase 118 U/L (29-168) 07/08/20 20:09 Troponin I 0.022 ng/mL (< 0.028) 07/09/20 02:06 C-Reactive Protein 0.67 mg/dL (= or < 0.5) H 07/09/20 10:07 B-Natriuretic Peptide 1045.7 pg/mL (0-100) H 07/08/20 20:09 Serum Total Protein 6.1 g/dL (6.0-8.3) 07/08/20 20:09 Albumin 2.6 g/dL (3.5-5.0) L 07/18/20 05:44 Lipase 83 U/L (8-78) H 07/08/20 20:09 Urine Ketones Negative mg/dL (Negative) 07/08/20 20:58 Urine Blood 1+ (Negative) A 07/08/20 20:58 Urine Nitrite Negative (Negative) 07/08/20 20:58 Ur Leukocyte Esterase Negative Ananya/uL (Negative) 07/08/20 20:58 Urine RBC 0-3 HPF (0-3) 07/08/20 20:58 Urine WBC 0-3 HPF (0-3) 07/08/20 20:58 Ur Squamous Epith Cells 0-3 HPF (0-3) 07/08/20 20:58 Urine Bacteria Rare-Few HPF (None Seen) 07/08/20 20:58 Sodium 141 mmol/L (136-145) 07/18/20 05:44 Potassium 4.2 mmol/L (3.5-5.1) 07/18/20 05:44 Chloride 106 mmol/L (98-107) 07/18/20 05:44 Carbon Dioxide 25 mmol/L (22-29) 07/18/20 05:44 Anion Gap 14 mmol/L (10-20) 07/18/20 05:44 BUN 20 mg/dL (9.8-20.1) 07/18/20 05:44 Creatinine 4.21 mg/dL (0.6-1.1) H 07/19/20 07:05 Glucose 112 mg/dL (70-105) H 07/18/20 05:44 Calcium 7.6 mg/dL (7.8-10.44) L 07/18/20 05:44 Phosphorus 3.5 mg/dL (2.3-4.7) 07/18/20 05:44 Magnesium 1.7 mg/dL (1.6-2.6) 07/13/20 06:10 Albumin 2.6 g/dL (3.5-5.0) L 07/18/20 05:44 Nephrology AP PN - Plan ASSESSMENT: JOSE LUIS On CKD: Now deemed ESRD and on HD. Acute kidney injury due to acute tubular injury. 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 Renal biopsy showed acute gtubular injury superimposed on nodular diabetic glomerulosclerosis and severe IFTA. Nephrotic syndrome due to diabetic nephropathy. Anasarca: Improving with diuretic and HD with UF Diabetes mellitus, on treatment. Hypertension. Control is suboptimal Obesity. Hyperkalemia: Resolved Metabolic acidosis. Anemia Due to anemia of chronic kidney disease/chronic illness and iron deficiency HTN: Control is better PLAN Will dialyze patient today. See EMR for HD orders Continue labetalol, torsemide, spironotactone and nifedipine. Monitor BP and adjust antihypertensives to get adequate BP control Continue NIESHA Can be discharged once outpatient HD is concluded.
[2020-07-19] MEDS: Spironolactone 25 MG TAB PO SCH (09:02)
[2020-07-19] MEDS: Amlodipine 5 MG TAB PO SCH ×2 (09:02→14:04)
[2020-07-19] MEDS: Famotidine 20 MG TAB PO SCH ×2 (09:02→14:05)
[2020-07-19] MEDS: Multivit, Therapeutic 1 TAB PO SCH ×2 (09:03→14:06)
[2020-07-19] MEDS: NIFEdipine XL 60 MG TAB PO SCH (09:03)
[2020-07-19] MEDS: Labetalol 100 MG TAB PO SCH ×2 (09:03→14:04)
[2020-07-19] MEDS: Heparin 5,000 UNITS/ML VIAL SC SCH (09:03)
[2020-07-19] MEDS: Ferrous Sulfate 325 MG TAB PO SCH ×2 (09:03→14:05)
[2020-07-19] MEDS: Torsemide 100 MG TAB PO SCH (09:03)
[2020-07-19] MEDS ORDERED: Heparin 10,000 UNITS/ 10 ML VIAL ONE (11:31)
[2020-07-19 14:11] VITALS: BP 158/69; TEMP 98.1
[2020-07-19] MEDS: HumaLOG 300 UNITS/3 ML VIAL SC PRN (16:47)
--- NOTE | 2020-07-19 20:12 | PDOC.DS.DS ---
Provider - Provider Date of Admission: 07/08/20 22:36 Date of Discharge: 07/19/20 Admitting Provider: Mariusz Dickey MD Consultations: General Surgery (Dr. Lainey Moran), Nephrology (Dr. Tom Bella) Primary Care Physician: [facility] Clinic Course - Hospital Course Hospital Course: Discharge Diagnoses: 1. 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 Anemia 3. Hypertension 4. Type II Diabetes Brief HPI: This is a 50 year old woman who presented with nausea, vomiting and diarrhea and bilateral lower extremity swelling. She was on diuretics at home without relief. When she presented to the hospital her creatinine was 6.6. She was admitted for further workup. Hospital Course: The patient underwent a kidney biopsy on 07/12 which showed diabetic glomerulosclerosis, ATN and arterionephrosclerosis. She had peritoneal dialysis catheter placement because she desired to do dialysis at home. She did have a tunnel catheter placed in her chest temporarily so that she can get hemodialysis for a few weeks until she is ready to do peritoneal dialysis. Case management was consulted and she was set up for an outpatient dialysis chair. Hypertensive Urgency: The patient had also elevated blood pressures of 190-200 in the hospital. She will be discharged with spironolactone, torsemide, nifedipine, and her labetalol will be increased to 200 mg twice daily. She should follow up with Dr. Santos in a week. Pertinent Studies: CT renal biopsy 07/12: Chest X ray 07/15: normal Chest X ray 07/08: no acute pulmonary f indings Venous doppler 07/09: no evidence of DVT Renal US: no hydronephrosis CT abdomen/pelvis 07/08: severe edema throughout subcutaneous fat circumferentially around the abdomen and pelvis. Small bilateral pleural effusions. Cholelithiasis Resuscitation Status: 07/09/20 03:22 Resuscitation Status Routine Co-Sign Provider: Resuscitation Status: FULL: Full Resuscitation - Labs Lab Results: 07/17/20 06:20 07/19/20 07:05 Abnormal Lab Results - Last 48 hrs 07/18/20 05:44: Creatinine 3.28 H, Calcium 7.6 L, Albumin 2.6 L 07/19/20 07:05: Creatinine 4.21 H Microbiology - Entire Visit 07/09/20 23:10 Stool - Liquid Stool Culture - Final 07/09/20 23:10 Stool - Liquid C. difficile GDH Antigen & Toxins - Final 07/09/20 23:10 Stool - Liquid Stool Lactoferrin - Final 07/09/20 23:10 Stool - Liquid Campylobacter Antigen Assay - Final 07/09/20 23:10 Stool - Liquid Shiga Toxin Test - Final 07/09/20 23:10 Stool - Liquid Escherichia coli 0157 Culture - Final - Physical Exam Vitals: Vital Signs (12 hours) Temp Pulse Resp BP 07/19/20 14:10 98.1 F 91 20 158/69 H 07/19/20 14:04 91 07/19/20 09:03 84 07/19/20 09:02 84 Weight Admit Weight 173 lb 8 oz Weight 181 lb 3.2 oz Physical Exam: The patient was seen and examined on the day of discharge. General: the patient is alert, awake, oriented times three CV: RRR, no murmurs, rubs, gallops. Tunneled cath in place Lungs: CTAB Abdomen: +BS, soft, nontender, nondistended. Peritoneal dialysis catheter in place Extremities: no edema Problem - Time spent with Patient (mins): 35 Plan - Discharge Medications Prescriptions: Spironolactone [Aldactone] 50 mg PO QAM-WM #60 tab Torsemide [Demadex] 100 mg PO DAILY #30 tab Labetalol [Normodyne] 200 mg PO BID #120 tab Amlodipine [Norvasc] 5 mg PO DAILY #30 tab NIFEdipine [Procardia XL] 60 mg PO BID #60 tab Home Medications: Medication Instructions Recorded Confirmed Type Aspirin Chewable [Aspirin Chewable 81 mg PO DAILY #30 tab 09/13/17 07/08/20 Rx Tablet] Atorvastatin Calcium [Lipitor] 40 mg PO HS #30 tab 09/13/17 07/08/20 Rx Multivit, Therapeutic [Theragran] 1 tab PO DAILY #30 tab 09/13/17 07/08/20 Rx metFORMIN HCl [Metformin HCl] 1,000 mg PO BID 12/05/19 07/08/20 History Ferrous Sulfate 325 mg PO BID #60 tablet 12/07/19 07/08/20 Rx Amlodipine [Norvasc] 5 mg PO DAILY #30 tab 07/19/20 Rx Labetalol [Normodyne] 200 mg PO BID #120 tab 07/19/20 Rx NIFEdipine [Procardia XL] 60 mg PO BID #60 tab 07/19/20 Rx Spironolactone [Aldactone] 50 mg PO QAM-WM #60 tab 07/19/20 Rx Torsemide [Demadex] 100 mg PO DAILY #30 tab 07/19/20 Rx Allergies: No Known Drug Allergies Allergy (Verified 12/05/19 01:39) - Discharge Instructions Discharge Instructions:: .S. RENALCARE CALL IN AM FOR INITIAL ASSEMENT APPOINTMENT THEN FOLLOW UP Thursdays AND SATURDAYS 0530 AM. [phone] Activity:: Activity as Tolerated Nourishment:: Heart Healthy Diet - Follow up Plan Referrals: Davonte Moran MD [Active] - [facility] [Primary Care Provider] - Jena Santos MD [Active] - Disposition: HOME Quality - Care Measures CORE MEASURES:: N/A
--- NOTE | 2020-07-20 07:12 | PQF ---
CLINICAL DOCUMENTATION CLARIFICATION FORM: Dear : Briseida Salazar Date / Time: 07/20/20 0711 Please exercise your independent, professional judgment in responding to the clarification form. Clinical indicators are provided on the bottom of this form for your review In your clinical opinion based on clinical findings below, can you please further specify the Acuity of Diastolic Heart Failure if: Please check appropriate box(es): [X ] Acute [ ] Acute on Chronic [ ] Chronic Physician Signature: Date/Time: For continuity of documentation, please document condition throughout progress notes and discharge summary. Thank You. To be completed by CDI/Coding staff for physician review: Present Clinical Indicators - Signs / Symptoms / Labs Results and Location in Medical Record [x] BNP 1045.7, Troponin 0.010, Creatinine 6.60, GFR 7 Laboratory 07/08 [x] Chest X-ray: There is airspace density, pulmonary edema or pneumothorax Imaging Dr Clark 07/08 [x] she reports bilateral lower extremity swelling and states she has had issues with fluid retention in the past H&P p1 07/09 Nelson PA--C [x] extremity edema noted with elevated BNP H&P p3 07/09 Nelson PA--C [x] The chart also mention diastolic dysfunction CHF with ejection fraction of 55-60% Consult Dr Moran 07/14 [x] Anasarca: Multifactorial-JOSE LUIS, CHF HPN p4 07/14 Dr Dickey Present Risk Factors Results and Location in Medical Record [x] HTN H&P p2 07/09 Nelson PA--C [x] DM H&P p2 07/09 Nelson PA--C [x] Acute on chronic kidney failure H&P p3 07/09 Nelson PA--C [x] Obesity Consult 07/09 Present Treatments Results and Location in Medical Record [x] Demadex 40 mg oral MAR 07/13 [x] Aldactone 50 gm oral SEP 23 [x] IV Apresoline 10 mg oral SEP 12 [x] Aspirin 81 mg oral SEP 23 [x] HD Order 07/15 CDS/Horologist Signature: Ashley Magana Phone #: [phone] Date/Time: 07/20/20 0711 This is a permanent part of the Medical Record [facility]
--- NOTE | 2020-07-20 10:29 | CT ---
Renal biopsy CT-guided random HISTORY: Nephrotic syndrome. FINDINGS: After explaining the procedure and answering all questions, limited CT imaging of the kidne ys was performed. Sterile technique, buffered local anesthesia, CT guidance, and a posterior approach were used to care fully advance a 17-gauge trocar needle to the posterior cortex of the hypovascular zone near the inferior pole of the right kidney. Needle was carefully engaged into the renal cortex. Please note th at the direction of the needle at imaging is towards the center of the kidney. At the time of the 3 18-gauge core biopsies, the needle was deflected laterally to obtain glomeruli and direct the biopsy away from the central vasculature. Specimen adequacy was confirmed by Dr. Echevarria from pathology. A total of 3 small pledgets of [place] w ere carefully instilled through the trocar needle and secured into place with the stylette. Needle was removed. Postprocedure imaging shows no evidence of complication. Patient tolerated the procedure well and was returned in unchanged condition. IMPRESSION : Technical successful CT-guided random renal biopsy. Pathology is pending. Transcribed Date/Time: 07/20/2020 10:29 AM
[2020-07-21 16:14] LABS: QuantiFERON-TB Gold Plus Negative (Negative)
== END 2020-07-19 17:41 | disposition home or self-care (01) | DRG 673 ==
LOC: ERS 19:08 → 2NO 22:36 → SURG A 07-15 09:33 → 3SE 07-15 12:19 → 3SW 07-15 20:12 → 3SE 07-16 18:37
PROVIDERS: ADMIT Student in an Organized Health Care Education/Training Program; ATTEND Student in an Organized Health Care Education/Training Program
PROC: 0TB03ZX Excision of Right Kidney, Percutaneous Approach, Diagnostic (ICD-10-PCS; 2020-07-12)
PROC: 30233N1 Transfusion of Nonautologous Red Blood Cells into Peripheral Vein, Percutaneous Approach (ICD-10-PCS; 2020-07-14)
PROC: 0WHG43Z Insertion of Infusion Device into Peritoneal Cavity, Percutaneous Endoscopic Approach (ICD-10-PCS; principal; 2020-07-15)
PROC: 0FT44ZZ Resection of Gallbladder, Percutaneous Endoscopic Approach (ICD-10-PCS; 2020-07-15)
PROC: 0JH60XZ Insertion of Tunneled Vascular Access Device into Chest Subcutaneous Tissue and Fascia, Open Approach (ICD-10-PCS; 2020-07-15)
PROC: 02HV33Z Insertion of Infusion Device into Superior Vena Cava, Percutaneous Approach (ICD-10-PCS; 2020-07-15)
PROC: B518ZZA Fluoroscopy of Superior Vena Cava, Guidance (ICD-10-PCS; 2020-07-15)
PROC: B548ZZA Ultrasonography of Superior Vena Cava, Guidance (ICD-10-PCS; 2020-07-15)
PROC: 5A1D70Z Performance of Urinary Filtration, Intermittent, Less than 6 Hours Per Day (ICD-10-PCS; 2020-07-15)
DX: N17.0 Acute kidney failure with tubular necrosis (principal); I50.33 Acute on chronic diastolic (congestive) heart failure; I13.2 Hypertensive heart and chronic kidney disease with heart failure and with stage 5 chronic kidney disease, or end stage renal disease; E87.2 Acidosis; Z20.822 Contact with and (suspected) exposure to COVID-19; Z23 Encounter for immunization; N18.6 End stage renal disease; E11.22 Type 2 diabetes mellitus with diabetic chronic kidney disease; E11.65 Type 2 diabetes mellitus with hyperglycemia; K80.80 Other cholelithiasis without obstruction; E87.5 Hyperkalemia; D63.1 Anemia in chronic kidney disease; T46.5X5A Adverse effect of other antihypertensive drugs, initial encounter; E66.9 Obesity, unspecified; I16.0 Hypertensive urgency; Z68.35 Body mass index [BMI] 35.0-35.9, adult; Z83.3 Family history of diabetes mellitus; Z79.899 Other long term (current) drug therapy; Z79.82 Long term (current) use of aspirin; Z79.84 Long term (current) use of oral hypoglycemic drugs; Z85.820 Personal history of malignant melanoma of skin; Z82.49 Family history of ischemic heart disease and other diseases of the circulatory system; Z80.49 Family history of malignant neoplasm of other genital organs; Z80.0 Family history of malignant neoplasm of digestive organs; Z82.3 Family history of stroke
CPT/HCPCS: 36415; 36416; 36430; 50200; 71045; 74176; 76770; 77002; 80048; 80053; 80061; 80069; 81003; 81015; 82436; 82550; 82565; 82570; 82607; 82728; 82746; 83540; 83550; 83630; 83690; 83735; 83880; 83883; 84133; 84156; 84165; 84166; 84300; 84484; 84540; 85007; 85014; 85018; 85025; 85027; 85610; 85652; 85730; 86038; 86140; 86160; 86225; 86480; 86704; 86706; 86803; 86850; 86900; 86901; 87045; 87046; 87324; 87340; 87427; 87449; 87635; 88304; 88329; 90471; 90662; 90935; 93005; 93970; 96374; C1752; G0008; G0257; J0360; J0690; J1644; J1940; J2370; J2405; J2704; J2765; J2916; J3010; J3490; J7070; P9016; P9047; Q5105; U0003

== ENCOUNTER 2020-07-26 03:24 | Inpatient (IN) | payer MEDICARE, MEDICAID ==
[2020-07-26] MEDS ORDERED: Norepinephrine 8 MG/0.9% NS 250 ML ONE ×2 (03:59→07:13)
[2020-07-26] MEDS ORDERED: EPINEPHrine 1 MG/ML AMP ONE (04:01)
[2020-07-26] MEDS ORDERED: EPINEPHrine 4 MG in Dextrose 5% in Water 250 ML IV SCH (04:15)
[2020-07-26 04:24] LABS: #Lymphocytes 1.4 thou/uL (1.20-3.40); #Monocytes 0.7 thou/uL (0.11-0.59); #Neutrophils 10.4 thou/uL (1.40-6.50); %Basophils 0.2 % (0.0-1.0); %Eosinophils 0.3 % (0.0-10.0); %Lymphocytes 11.4 % (21.0-51.0); %Monocytes 5.3 % (0.0-10.0); %Neutrophils 82.7 % (42.0-75.0); Hemoglobin 7.9 g/dL (12.0-16.0); Mean Corpuscular HGB CONC 28.9 g/dL (32.0-36.0); Mean Corpuscular Hemoglobin 31.3 pg (27.0-31.0); Mean Platelet Volume 9.8 fL (7.4-10.4); Platelet Count 236 thou/uL (130-400); RBC Distribution Width 14.2 % (11.5-14.5); Red Blood Cell (RBC) Count 2.52 mill/uL (4.20-5.40); White Blood Cell (WBC) Count 12.6 thou/uL (4.8-10.8)
[2020-07-26 04:38] LABS: ALT (SGPT) 17 U/L (8-55); AST (SGOT) 25 U/L (5-34); Alkaline Phosphatase 75 U/L (40-110); BUN (Urea Nitrogen) 48 mg/dL (9.8-20.1); Bilirubin, Total 0.2 mg/dL (0.2-1.2); Calc. Creatinine Clearance 0 mL/min (70-130); Calcium 8.2 mg/dL (7.8-10.44); Chloride 96 mmol/L (98-107); Globulin 2.4 g/dL (2.4-3.5); Glucose 84 mg/dL (70-105); Potassium 5.8 mmol/L (3.5-5.1); Protein, Total 5.4 g/dL (6.0-8.3); Sodium 141 mmol/L (136-145)
[2020-07-26 04:40] LABS: Carbon Dioxide Less than 8 mmol/L (22-29)
[2020-07-26] MEDS ORDERED: Atropine Sulfate 1 mg/10 ml Syringe ONE (05:52)
[2020-07-26] MEDS ORDERED: Sodium Bicarbonate 150 MEQ in Dextrose 5 % And 0.9 % NaCl 1,000 ML IV SCH (06:00)
[2020-07-26 06:16] LABS: Acetaminophen Less than 6.0 mcg/mL (10.0-30.0); Salicylate Less than 8.0 mg/dL (15.0-30.0)
[2020-07-26] MEDS ORDERED: Vancomycin 1 GM in Premix Bag 1 BAG IVPB ONE (06:44)
[2020-07-26] MEDS ORDERED: Acetaminophen 325 MG TAB PO PRN (06:48)
[2020-07-26] MEDS ORDERED: Guaifenesin DM 100-10/5 ML UDCUP PO PRN (06:53)
[2020-07-26] MEDS ORDERED: Promethazine HCl 12.5 MG in Sodium Chloride 0.9% 50 ML IVPB PRN (06:53)
[2020-07-26] MEDS ORDERED: hydrALAZINE 20 MG/ML VIAL SLOW IVP PRN (06:53)
[2020-07-26] MEDS ORDERED: HYDROcodone/Acetaminophen 5/325 mg Tablet PO PRN (06:53)
[2020-07-26] MEDS ORDERED: Labetalol HCl 100 MG/20 ML VIAL SLOW IVP PRN (06:53)
[2020-07-26] MEDS ORDERED: Ondansetron PF 4 MG/2 ML Vial IVP PRN (06:53)
[2020-07-26] MEDS ORDERED: cloNIDine 0.1 MG TAB PO PRN (06:53)
--- NOTE | 2020-07-26 06:58 | PDOC.HHP ---
Hospitalist HPI - History of Present Illness Lethargy History of Present Illness: patient is a 50 year old female with recent ESRD, HTN, CHF, DM2 who is admitted from ED for sepsis. EMS was called to house, patient was found to be lethargic, blood pressure in the 60's. EMS gave 3L NS and .5mg of atropine with no success. Here patent lethargic, blood pressure in the 60s. Norepinephrine started, as well as epinephrine, BP improved, cultures drawn, HD nurse called to get PD cath fluid, patient started on empiric abx. WBC 12.6, hgb 7.9, CO2 8, K 5.8, lactic acid 21, CTA chest abdomen pelvis ordered and read pending Patient recently discharged on Saturday from here for renal failure, seen by Dr Santos, had PD and HD caths placed, went to HD like normal TTS Hospitalist ROS - Review of Systems Constitutional: reports: fever, chills, sweats, weakness, malaise Eyes: denies: pain, vision change, conjunctivae inflammation, eyelid inflammation, redness, other ENT: denies: ear pain, ear discharge, nose pain, nose discharge, nose congestion, mouth pain, mouth swelling, throat pain, throat swelling, other Respiratory: denies: cough, dry, shortness of breath, hemoptysis, SOB with excertion, pleuritic pain, sputum, wheezing, other Cardiovascular: denies: chest pain, palpitations, orthopnea, paroxysmal noc. dyspnea, edema, light headedness, other Gastrointestinal: reports: nausea. denies: vomiting, abdominal pain, diarrhea, constipation, melena, hematochezia, other Genitourinary: denies: dysuria, frequency, incontinence, hematuria, retention, other Musculoskeletal: denies: neck pain, shoulder pain, arm pain, back pain, hand pain, leg pain, foot pain, other Skin: denies: rash, lesions, ernestine, bruising, other Neurological: denies: weakness, numbness, incoordination, change in speech, confusion, seizures, other All other systems reviewed; all pertinent +/- noted in HPI/Subj - Medication Medications: NIFEdipine SatJul 26, 2020 06:56 SATHYA Galarza, Myke tablet extended release : Strength - 90 mg : ORAL Patient Dose: 60 mg Oral 2 times a day. Aldactone SatJul 26, 2020 06:56 SATHYA Galarza Jonathan tablet : Strength - 50 mg : ORAL Patient Dose: 50 mg Oral once a day (in the morning). torsemide oral SatJul 26, 2020 06:57 SATHYA Galarza Jonathan tablet : Strength - 100 mg : ORAL Patient Dose: 100 mg Oral once a day. labetalol oral SatJul 26, 2020 06:57 SATHYA Galarza Jonathan tablet : Strength - 200 mg : ORAL Patient Dose: 200 mg Oral 2 times a day. amLODIPine SatJul 26, 2020 06:58 SATHYA Galarza Jonathan tablet : Strength - 5 mg : ORAL Patient Dose: 5 mg Oral once a day. atorvastatin SatJul 26, 2020 06:58 SATHYA Galarza Jonathan tablet : Strength - 40 mg : ORAL Patient Dose: 40 mg Oral once a day (at bedtime). metFORMIN SatJul 26, 2020 06:58 SATHYA Galarza Jonathan tablet : Strength - 1,000 mg : ORAL Patient Dose: 1000 mg Oral 2 times a day. aspirin oral SatJul 26, 2020 06:58 SATHYA Galarza Jonathan tablet : Strength - 81 mg : ORAL Patient Dose: 81 mg Oral once a day. ferrous sulfate SatJul 26, 2020 06:59 SATHYA Galarza Jonathan tablet : Strength - 325 mg (65 mg iron) : ORAL Patient Dose: 325 mg Oral 2 times a day. Hospitalist History - Past Medical History Other Medical History: 1. CHF 2. Type 2 diabetes mellitus 3. Hypertension 4. Chronic anemia - Past Surgical History Other Surgical History: 1. Surgery for staph infection years ago 2. Mole excised from leg - Family History Family History: reports: no pertinent history - Social History Other Social History: She lives with her family. She is fully independent at baseline. She walks independently. - Exam General Appearance: NAD, awake alert Eye: PERRL, anicteric sclera ENT: normocephalic atraumatic, no oropharyngeal lesions, moist mucosa Neck: supple, symmetric, no JVD, no thyromegaly, no lymphadenopathy, no carotid bruit Heart: RRR, no murmur, no gallops, no rubs, normal peripheral pulses Respiratory: CTAB, no wheezes, no rales, no ronchi, normal chest expansion, no tachypnea, normal percussion Gastrointestinal: soft, non-tender, non-distended, normal bowel sounds, no palpable masses, no hepatomegaly, no splenomegaly, no bruit Gastrointestinal - other findings: PD cath in place, no peritoneal signs Extremities: no cyanosis, no clubbing, no edema Skin: normal turgor, no lesions, no rashes Neurological: cranial nerve grossly intact, normal sensation to touch, no weakness, no focal deficits, no new deficit Musculoskeletal: normal tone, normal strength, no muscle wasting Psychiatric: normal affect, normal behavior, A&O x 3 Hospitalist Results - Labs Result Diagrams: 07/26/20 04:05 07/26/20 04:05 Lab results: WBC 12.6 thou/uL (4.8-10.8) H 07/26/20 04:05 Hgb 7.9 g/dL (12.0-16.0) L 07/26/20 04:05 Hct 27.3 % (36.0-47.0) L 07/26/20 04:05 MCV 108.0 fL (78.0-98.0) H 07/26/20 04:05 Plt Count 236 thou/uL (130-400) 07/26/20 04:05 Neutrophils % 82.7 % (42.0-75.0) H 07/26/20 04:05 Sodium 141 mmol/L (136-145) 07/26/20 04:05 Potassium 5.8 mmol/L (3.5-5.1) H 07/26/20 04:05 Chloride 96 mmol/L (98-107) L 07/26/20 04:05 Carbon Dioxide Less than 8 mmol/L (22-29) L* 07/26/20 04:05 BUN 48 mg/dL (9.8-20.1) H 07/26/20 04:05 Creatinine 6.46 mg/dL (0.6-1.1) H 07/26/20 04:05 Glucose 84 mg/dL (70-105) 07/26/20 04:05 Lactic Acid 21.2 mmol/L (0.5-2.2) H* 07/26/20 04:05 Calcium 8.2 mg/dL (7.8-10.44) 07/26/20 04:05 Total Bilirubin 0.2 mg/dL (0.2-1.2) 07/26/20 04:05 AST 25 U/L (5-34) 07/26/20 04:05 ALT 17 U/L (8-55) 07/26/20 04:05 Alkaline Phosphatase 75 U/L (40-110) 07/26/20 04:05 Troponin I Less than 0.010 ng/mL (< 0.028) 07/26/20 04:05 C-Reactive Protein 2.40 mg/dL (= or < 0.5) H 07/26/20 05:43 B-Natriuretic Peptide 774.8 pg/mL (0-100) H 07/26/20 04:05 Serum Total Protein 5.4 g/dL (6.0-8.3) L 07/26/20 04:05 Albumin 3.0 g/dL (3.5-5.0) L 07/26/20 04:05 labs, imaging, ED documents reviewed Additional comment: VITAL SIGNS Tue Jul 26, 2020 03:33 SATHYA Galarza, Myke Pulse: 55 Resp: 24 O2 sat: 100 on (Room Air) Time: 07/26/2020 03:33. Hospitalist H&P A/P - Plan Plan: patient is a 50 year old female with recent ESRD, HTN, CHF, DM2 who is admitted from ED for sepsis. # septic shock - unknown source, PD cath is possible source - admit to ICU - continue epi/levophed - PD culture to be drawn, follow other drawn cultures - empiric vancomycin/cefepime # ESRD # metabolic acidosis # lactic acisosis - consult nephrology - bicarb drip - recheck BMP/electrolytes frequently # HTN - not issue now given sepsis # DM2 - SSI # DVT/GI ppx full code 45 minutes critical care time
[2020-07-26] MEDS ORDERED: Electrolyte Replacement Protocol 1 EACH FS SCH (07:00)
[2020-07-26] MEDS ORDERED: Norepinephrine 8 MG/0.9% NS 250 ML IVPB PRN (07:02)
[2020-07-26] MEDS ORDERED: HumaLOG 300 UNITS/3 ML VIAL SC PRN (07:02)
[2020-07-26] MEDS ORDERED: Electrolyte Replacement Protocol FS PRN (07:15)
[2020-07-26] MEDS ORDERED: Sodium Bicarbonate 150 MEQ in Dextrose 5% in Water 1,000 ML IV SCH (07:15)
[2020-07-26 07:35] LABS: Troponin I 0.016 ng/mL (< 0.028)
--- NOTE | 2020-07-26 07:36 | CT ---
PRELIMINARY REPORT/DIRECT RADIOLOGY/EMERGENCY AFTER HOURS PROCEDURE: EXAM: CT Abdomen and Pelvis with Intravenous Contrast CLINICAL HISTORY: PREVIOUS ON PACS//RO ANY NECROTIZING TISSUE/ORGAN DAMAGE..PT ON DIALYSIS. SX HX: PREVIOUS STAPH INFECTION SX, MELANOMA REMOVAL SX. TECHNIQUE: Axial computed tomography images of the abdomen and pelvis with intravenous contrast. CONTRAST: With; ISOVUE 370,80mL COMPARISON: July 08, 2020 FINDINGS: No significant findings at the lung bases. Gastric distention with some dilatation of the e sophagus. Question of some inflammatory change around the pyloric channel and duodenal bulb. Remainder of the GI tract is essentially decompressed, otherwise very poorly evaluated. Diffuse mese nteric and subcutaneous induration obscure the margins of the bowel loops to a degree. There is no obstruction. No free fluid. Dialysis catheter in place. No fluid collections or free air. Liver gr ossly unremarkable. Kidneys and pancreas grossly unremarkable. Small adrenal nodule on the left appears to contain fat. Splenic enhancement is fairly heterogeneous with the splenic margin somewhat ill-defined, nature of which is unclear. No obvious, acute bony abnormalities. IMPRESSION: Some gastric distention noted. Evaluation of the remainder of the GI tract without any o bvious, focal, or acute abnormalities. Heterogeneous enhancement of the spleen, nature of which is unclear. Ultrasound may be helpful. Diffuse mesenteric and subcutaneous induration noted. ELECTRONICALLY SIGNED BY: Santiago Samayoa MD Jul 26, 2020 6:56:01 AM INCISING MACHINE OPERATOR FINAL REPORT CT ABDOMEN AND PELVIS WITH CONTRAST: Comparison: CT abdomen and pelvis without contrast July 08, 2020. Findings/impression: Majority of the findings are concordant with the initial report. There is peripheral hypoenhancement of the spleen likely sequelae of vascular insufficiency. There is also high-grade submucosal edema in the sigmoid colon and involving portions of the descending colon with patent inferior mesenteric a rtery suggesting colitis. Transcribed Date/Time: 07/26/2020 7:56 AM
--- NOTE | 2020-07-26 07:41 | PDOC.HOSPP ---
- Subjective Encounter Date: 07/26/20 Encounter Time: 07:37 Subjective: no abd pain. ill appearing - Objective Result Diagrams: 07/26/20 04:05 07/26/20 04:05 - Exam General Appearance: awake alert Neck: no JVD Heart: RRR, no murmur Respiratory: CTAB Gastrointestinal: soft, normal bowel sounds Extremities: 1+ LE edema Hosp A/P (1) Severe sepsis Code(s): A41.9 - SEPSIS, UNSPECIFIED ORGANISM; R65.20 - SEVERE SEPSIS WITHOUT SEPTIC SHOCK Status: Acute (2) Hypotension Status: Acute Qualifiers: Hypotension type: unspecified hypotension type Qualified Code(s): I95.9 - Hypotension, unspecified (3) Lactic acidosis Code(s): E87.2 - ACIDOSIS Status: Acute (4) Chronic anemia Code(s): D64.9 - ANEMIA, UNSPECIFIED Status: Chronic (5) DM type 2 (diabetes mellitus, type 2) Status: Chronic Qualifiers: Diabetes mellitus fpc insulin use: without safety lamp keeper use Diabetes mellitus complication status: with kidney complications Diabetes mellitus complication detail: with chronic kidney disease Chronic kidney disease stage: on chronic dialysis Qualified Code(s): E11.22 - Type 2 diabetes mellitus with diabetic chronic kidney disease; N18.6 - End stage renal disease; Z99.2 - Dependence on renal dialysis (6) HTN (hypertension) Code(s): I10 - ESSENTIAL (PRIMARY) HYPERTENSION Status: Chronic Qualifiers: Hypertension type: essential hypertension Qualified Code(s): I10 - Essential (primary) hypertension - Plan cultures pending, broad spectrum antibx on pressors acidosis- in bicarb serial accu, lab environmental services manager, renal consult
--- NOTE | 2020-07-26 07:51 | CT ---
PRELIMINARY REPORT/[facility]/EMERGENCY AFTER HOURS PROCEDURE: EXAM: CTA Chest with Intravenous Contrast CLINICAL HISTORY: SHORTNESS OF BREATH..Blood Pressure: 60/30, Pulse: 50, Respiratory Rate: 30, Oxygen saturation 100% TECHNIQUE: Axial CTA images of the chest with intravenous contrast. Three-dimensional MIP/volume rendered reform ations were performed. CONTRAST: With; ISOVUE 370;60mL COMPARISON: None provided. FINDINGS: PULMONARY ARTERIES There is no intraluminal filling defect suspicious for PE. AORTA No thoracic aortic aneurysm or dissection. LUNGS The lungs are mostly clear. Likely just some compressive changes at the lung bases. Some MINIMAL un derlying edema, less likely pneumonia or pneumonitis may be present. No pulmonary mass. No focal airs pace consolidation. PLEURAL SPACES No pleural effusion. No pneumothorax. HEART AND MEDIASTINUM Mild cardiomegaly. No significant pericardial effusion. Some mild thickening and distention of the e sophagus. Small hiatal hernia with some gastric distention. LYMPH NODES No lymphadenopathy. BONES No focal osseous abnormality or acute fracture. IMPRESSION: Minimal findings at the lung bases as discussed. No pulmonary emboli. Cardiomegaly. Changes to the esophagus as discussed. ELECTRONICALLY SIGNED BY: Santigao Samayoa MD Jul 26, 2020 4:06:42 AM MOLECULAR MODELER This report is intended for review by the ordering physician only, in accordance of law. If you recei ve this report in error, please call [facility] at [phone]. FINAL REPORT EMERGENCY AFTER HOURS CTA CHEST WITH CONTRAST: COMPARISON: CT abdomen/pelvis 07/08/2020. CT abdomen/pelvis 07/09/2018. FINDINGS/IMPRESSION: I agree with the findings and impression given in the preliminary report per [facility] physici an. 1. No evidence of pulmonary thromboembolism. 2. Bibasilar atelectasis. 3. Stable hypodense left adrenal nodule. POS: EAA
[2020-07-26 07:55] LABS: SARS-CoV-2 NAA Rapid Test Not Detected (NotDetected)
[2020-07-26 07:57] LABS: BUN (Urea Nitrogen) 47 mg/dL (9.8-20.1); Calc. Creatinine Clearance 0 mL/min (70-130); Chloride 97 mmol/L (98-107); Glucose 99 mg/dL (70-105); Potassium 5.6 mmol/L (3.5-5.1); Sodium 140 mmol/L (136-145)
[2020-07-26] MEDS ORDERED: Cefepime 1 GM in Sodium Chloride 0.9% 100 ML IVPB SCH ×2 (08:00→21:00)
[2020-07-26 08:02] LABS: Carbon Dioxide Less than 8 mmol/L (22-29)
[2020-07-26 08:27] LABS: Lactic Acid 19.2 mmol/L (0.5-2.2)
[2020-07-26] MEDS ORDERED: Famotidine 20 MG TAB PO SCH (09:00)
[2020-07-26] MEDS ORDERED: Polyethylene Glycol 3350 17 GM Packet PO SCH (09:00)
[2020-07-26] MEDS ORDERED: Heparin 5,000 UNITS/ML VIAL SC SCH ×3 (09:00→21:00)
[2020-07-26] MEDS ORDERED: Cefepime 1 GM VIAL ONE (09:07)
[2020-07-26] MEDS ORDERED: Vancomycin 1 GM/200 ML BAG ONE (09:07)
[2020-07-26 09:31] VITALS: BMI 28.3
[2020-07-26] MEDS ORDERED: Acetaminophen 650 MG Suppository PR PRN (11:35)
[2020-07-26] MEDS ORDERED: Vancomycin 1.5 GRAM/300 ML BAG 1 GM in Premix Bag 1 BAG IVPB SCH (12:00)
[2020-07-26] MEDS ORDERED: Famotidine/PF 20 mg/2ml Vial SLOW IVP SCH (21:00)
[2020-07-27] MEDS ORDERED: Vancomycin 1 GM in Premix Bag 1 BAG IVPB SCH (09:00)
--- NOTE | 2020-07-28 00:06 | PQF ---
CLINICAL DOCUMENTATION CLARIFICATION FORM: Dear : Derik Maguire Date / Time: 07/28/20 0005 Please exercise your independent, professional judgment in responding to the clarification form. Clinical indicators are provided on the bottom of this form for your review Please check appropriate box(es): [ ] Sepsis due to PD catheter infection [ ] Sepsis not related to procedure [ ] Other diagnosis [ x ] Unable to determine transferred from ED to [facility] Physician Signature: Date/Time: For continuity of documentation, please document condition throughout progress notes and discharge summary. Thank You. To be completed by CDI/Coding staff for physician review: Present Clinical Indicators - Signs / Symptoms / Labs Results and Location in Medical Record [x] WBC 12.6, Plt count 236, Neutrophils 87.2, Lactic acid 21.2 Laboratory 07/26 [x] Blood culture: No growth Microbiology 07/26 [x] BP 101/49, Pulse 65, Resp 22, Temp 89.0 Vital signs 07/26 [x] Septic Shock unknown, PD cath is possible source H&P p5 07/26 Dr Billy [x] Metabolic acidosis H&P p5 07/26 Dr Billy [x] Lactic acidosis H&P p5 07/26 Dr Billy Present Risk Factors Results and Location in Medical Record [x] ESRD on PD H&P p1 07/26 Dr Billy [x] HTN H&P p1 07/26 Dr Billy [x] DM H&P p1 07/26 Dr Billy Present Treatments Results and Location in Medical Record [x] IV Vancomycin 1 gm SEP 12 [x] IV Levophed 250 ml SEP 12 [x] IV Cefepime 1 gm SEP 12 [x] Admitted to ICU H&P p5 07/26 Dr Billy CDS/Contact Center Team Lead Signature: Ashley Wheelervíctor Phone #: ext [phone] Date/Time: 07/28/20 0005 This is a permanent part of the Medical Record [employer] [facility]
== END 2020-07-26 10:10 | disposition short-term general hospital (02) | DRG 871 ==
LOC: ERS 03:24 → ERHOLD 06:01
PROVIDERS: ADMIT Internal Medicine; ATTEND Internal Medicine
PROC: 3E033XZ Introduction of Vasopressor into Peripheral Vein, Percutaneous Approach (ICD-10-PCS; principal; 2020-07-26)
DX: A41.9 Sepsis, unspecified organism (principal); N18.6 End stage renal disease; R65.21 Severe sepsis with septic shock; E87.2 Acidosis; I13.2 Hypertensive heart and chronic kidney disease with heart failure and with stage 5 chronic kidney disease, or end stage renal disease; Z20.822 Contact with and (suspected) exposure to COVID-19; R65.20 Severe sepsis without septic shock; E11.22 Type 2 diabetes mellitus with diabetic chronic kidney disease; I50.9 Heart failure, unspecified; D63.1 Anemia in chronic kidney disease; Z79.899 Other long term (current) drug therapy; Z88.2 Allergy status to sulfonamides
CPT/HCPCS: 36415; 71275; 74177; 80053; 80143; 80179; 82010; 83605; 83880; 84484; 85025; 85652; 86140; 87040; 93005; 80307; J0171; J0461; J0692; J1644; J3370; J7042; J7070; U0002

== ENCOUNTER 2022-10-25 09:21 | Day surgery (SDC) | payer MEDICARE, MEDICAID ==
[2022-10-23 13:50] VITALS: BMI 29.2
[~2022-10-25 09:21] MED LIST changes: +EPINEPHrine 0.3 MG in Ophthalmic Irrigation Solution 500 ML IRR SCH; -Glycopyrrolate 0.2 MG/ML 5 ML SYRINGE ONE; -Lidocaine 1% PF 5 ML VIAL ONE; +Midazolam HCl 2 mg/2 ml Vial ONE; -Ondansetron PF 4 MG/2 ML Vial ONE; -PHENYLEPHRINE-NS 100 MCG/ML 10 ML SYRINGE ONE; -PROPOFOL 200 MG/20 ML VIAL ONE; -Rocuronium Bromide 10 MG/ML (10ML VIAL) ONE; +fentaNYL 50 mcg/mL 1 mL Vial ONE
[2022-10-25] MEDS ORDERED: Phenylephrine 2.5% Ophth Soln 5 ML BOT ONE (09:52)
[2022-10-25] MEDS ORDERED: Cyclopentolate 1% Opth Drop 2 ML BOT ONE (09:52)
[2022-10-25] MEDS ORDERED: Bupivacaine 0.75% 10 ML VIAL ONE (12:36)
[2022-10-25] MEDS ORDERED: CEFAZOLIN 1 GM VIAL ONE (12:36)
[2022-10-25] MEDS ORDERED: Maxitrol 0.1% Opth Oint 3.5 GM TUBE ONE (12:36)
[2022-10-25] MEDS ORDERED: Lidocaine 1% PF 5 ML VIAL ONE (12:36)
[2022-10-25] MEDS ORDERED: Triamcinolone 40 MG/ML VIAL ONE (12:36)
[2022-10-25] MEDS ORDERED: Lidocaine 4% PF 5 ML AMP ONE (12:36)
[2022-10-25] MEDS ORDERED: PROPOFOL 200 MG/20 ML VIAL ONE (12:36)
== END 2022-10-25 14:26 | disposition home or self-care (01) ==
LOC: SDC 09:21
PROVIDERS: ATTEND Ophthalmology Retina Specialist
PROC: 08T43ZZ Resection of Right Vitreous, Percutaneous Approach (ICD-10-PCS; principal; 2022-10-25)
PROC: 08NE3ZZ Release Right Retina, Percutaneous Approach (ICD-10-PCS; 2022-10-25)
DX: H33.41 Traction detachment of retina, right eye (principal); H43.11 Vitreous hemorrhage, right eye; Z79.82 Long term (current) use of aspirin; Z79.84 Long term (current) use of oral hypoglycemic drugs; Z79.899 Other long term (current) drug therapy; Z98.41 Cataract extraction status, right eye; Z98.42 Cataract extraction status, left eye; Z96.1 Presence of intraocular lens
CPT/HCPCS: 67113; C1814; J3010; J0171; J0690; J2250; J2704; J3301; J3490